=== PATIENT | male | born 1950 | race Caucasian/White ===

== ENCOUNTER 2017-10-25 15:07 | Inpatient (IN) | payer MEDICARE, MEDICAID ==
--- NOTE | 2017-10-25 15:28 | ED Physician Chart ---
ED Chief Complaint/HPI - Patient Information Date Seen:: 10/25/17 Time Seen:: 15:15 Chief Complaint:: Agitation History of Present Illness:: onset x 3 days of agitation and aggressive behavior; no report of SIs, H/As, neck pain, C/P, cough, SOB, Abd. Pain, A/N/V/D/C, fever, chills, or urinary s/s Historian:: Patient, EMS Review:: Nurse's Note Reviewed, EMS run form Reviewed ED Review of Systems - Review of Systems General/Constitutional: No fever, No chills, No weight loss, No weakness, No diaphoresis, No edema, No loss of appetite Skin: No skin lesions, No rash, No bruising Head: No headache, No light-headedness Eyes: No loss of vision, No pain, No diplopia ENT: No earache, No nasal drainage, No sore throat, No tinnitus Neck: No neck pain, No swelling, No thyromegaly, No stiffness, No mass noted Cardio Vascular: No chest pain, No palpitations, No PND, No orthopnea, No edema Pulmonary: No SOB, No cough, No sputum, No wheezing GI: Nausea, Vomiting, Diarrhea, Pain, No melena, No hematochezia, No constipation, No hematemesis G/U: No dysuria, No frequency, No hematuria, No nacturia Musculoskeletal: No bone or joint pain, No back pain, No muscle pain Endocrine: No polyuria, No polydipsia Psychiatric: Prior psych history, Depression, Anxiety, No suicidal ideation, No homicidal ideation, Auditory hallucination, No visual hallucination Hematopoietic: No bruising, No lymphadenopathy Allergic/Immuno: No urticaria, No angioedema Neurological: No syncope, No focal symptoms, No weakness, No paresthesia, No headache, No seizure, No dizziness, No confusion, No vertigo ED Past Medical History - Past Medical History Obtainable: Yes Past Medical History: PUD/GERD, Other (anemia) Family History: HTN Social History: Non Smoker, No Alcohol, No Drug Use, Single, Care Facility Surgical History: None Psychiatricy History: Depression, Schizophrenia Medication: Reviewed ED Physical Exam - Physical Examination General/Constitutional: Awake, Well-developed, well-nourished, Alert, No distress, GCS 15, Non-toxic appearing, Ambulatory Head: Atraumatic Eyes: Lids, conjuctiva normal, PERRL, EOMI Skin: Nl inspection, No rash, No skin lesions, No ecchymosis, Well hydrated, No lymphadenopathy ENMT: External ears, nose nl, TM canals nl, Nasal exam nl, Lips, teeth, gums nl , Oropharynx nl, Tonsils nl Neck: Nontender, Full ROM w/o pain, No JVD, No nuchal rigidity, No bruit, No mass, No stridor Respiratory: Nl effort/Exclusion, Clear to Auscultation, No Wheeze/Rhonchi/Rales Cardio Vascular: RRR, No murmur, gallop, rubs, NL S1 S2, Carotid/Femoral/Distal pulses equal bilaterally GI: No tenderness/rebounding/guarding, No organomegaly, No hernia, Normal BS's, Nondistended, No mass/bruits, No McBurney tenderness : No CVA tenderness Extremities: No tenderness or effusion, Full ROM, normal strength in all extremities, No edema, Normal digits & nails Neuro/Psych: Alert/oriented, DTR's symmetric, Normal sensory exam, Normal motor strength, Judgement/insight normal, Mood normal, Normal gait, No focal deficits Other Neuro/Psych comments:: + Psychomotor Agitation; no SIs; Mood/Affect: Stable Misc: Normal back, No paraspinal tenderness ED Labs/Radiology/EKG Results - Lab Results Comments:: unremarkable - EKG Interpretations Comments:: pt refused EKG ED Septic Shock - . Is Septic Shock (SBP<90, OR Lactate>4 mmol\L) present?: No ED Reassessment (Disposition) - Reassessment Reassessment Condition:: Improved - Diagnosis Diagnosis:: Agitation; Bipolar Disorder; Depression; Schizophrenia; Medical Clearance - Aftercare/Follow up Instructions Aftercare/Follow-Up Instructions:: Counseled pt regarding lab results/diagnosis & need follow up, Counseled pt & family regarding lab results/diagnosis & need follow up - Patient Disposition Discharge/Transfer:: Acute Care w/in this hosp Admitted to:: [facility] Condition at Disposition:: Stable, Improved
[2017-10-25 15:45] LABS: % BASOPHILS 0.4 % (0.0-2.0); % LYMPHOCYTES 14.6 % (20.0-50.0); % MONOCYTES 5.9 % (2.0-10.0); % NEUTROPHILS 78.1 % (40.0-80.0); EOSINOPHILE ABSOLUTE 0.1 Th/cmm (0.1-0.4); HEMATOCRIT 48.5 % (41.0-60); HEMOGLOBIN 16.1 gm/dL (12-16); LYMPHOCYTE ABSOLUTE 1.3 Th/cmm (1.5-3.0); MEAN CELL VOLUME 93.4 fl (80-99); MEAN CORPUSCULAR HGB CONC 33.2 pg (28.0-36.0); MEAN PLATELET VOLUME 7.6 fl; MONOCYTE ABSOLUTE 0.5 Th/cmm (0.3-1.0); NEUTROPHILE ABSOLUTE 6.8 Th/cmm (1.8-8.0); PLATELET COUNT 260 Th/cmm (150-400); RED CELL DISTRIBUTION WIDTH 13.2 % (11.5-20.0); WHITE BLOOD COUNT 8.7 Th/cmm (4.8-10.8)
[2017-10-25 16:03] LABS: ALB/GLOB RATIO 1.6 (1.0-1.8); ALBUMIN 4.2 gm/dL (4.2-5.5); ANION GAP 9.2 (7.0-16.0); BILIRUBIN,TOTAL 0.5 mg/dL (0.3-1.0); BUN - UREA NITROGEN 19 mg/dL (7-25); CALCIUM SERUM 8.8 mg/dL (8.6-10.3); CARBON DIOXIDE 27.1 mEq/L (21.0-31.0); CHLORIDE 106 mEq/L (98-107); CREATININE - SERUM 0.7 mg/dL (0.7-1.3); GFR AFRICAN-AMERICAN > 60.0 ml/min (>90); GFR NON AFRICAN-AMERICAN > 60.0 ml/min; GLUCOSE 102 mg/dL (70-105); POTASSIUM SERUM 4.3 mEq/L (3.5-5.1); SGOT 18 U/L (13-39); SGPT/ALT 13 U/L (7-52); SODIUM SERUM 138 mEq/L (136-145); TOTAL PROTEIN,SERUM 6.9 gm/dL (6.0-8.3)
[2017-10-25 16:04] LABS: ACETAMINOPHEN < 10.0 ug/mL (10.0-30.0); ALKALINE PHOSPHATASE 54 U/L (34-104); CHOLESTEROL 190 mg/dL (<200); HDL -HIGH DENSITY LIPOPROTEIN 51 mg/dL (23-92); SALICYLATES (ASPIRIN) < 25.0 mg/L (30.0-100.0); TRIGLYCERIDES 126 mg/dL (<150)
[2017-10-25] MEDS ORDERED: Haloperidol Lactate 5 mg/mL 1mL Vial IM STA (16:34)
[2017-10-25 16:51] LABS: A1C % 6.2 % (4.0-6.0)
[2017-10-25 18:54] VITALS: BP 131/74
[2017-10-25] MEDS ORDERED: Maalox 30 mL Cup PO PRN (21:19)
[2017-10-25] MEDS ORDERED: Magnesium Hydroxide (MOM) 30 mL UDC PO PRN (21:19)
[2017-10-26] MEDS: Multivitamin Tab PO SCH (08:11)
[2017-10-26] MEDS: Benztropine 1 MG TAB PO SCH (08:11)
--- NOTE | 2017-10-26 08:12 | History and Physical ---
History of Present Illness - HPI Chief Complaint: psychosis HPI: 66 y/o male who presents to [facility] for 3 days history of increased agitation and aggressive behavior noted by the nursing staff. While in the ER, patient had routine labwork which revealed WBC 8.7 H/H 16.1/48.5 plat 260K Na 138 K 4.3 Bun/Cr 19/0.7 glu 102 A1c 6.2 TC 190 Trig 126 HDL 51 LDL 116 ETOH <10 Salicylates <25 Tylenol <10 Patient has a PMH PUD/GERD, HTN, Anemia, Depression, Schizophrenia Patient refused EKG Vital Signs: Last Vital Signs Temp 98 F 10/25/17 20:00 Pulse 82 10/25/17 20:00 Resp 20 10/25/17 20:00 BP 110/68 10/25/17 20:00 Pulse Ox 97 10/25/17 20:00 Past Medical History Cardiovascular: Report: HTN Pulmonary: Report: No Pertinent Hx [employer]IOR MANAGER: Report: No Pertinent Hx GI: Report: GERD, Peptic Ulcer Psych: Report: Depression, Schizophrenia Musculoskeletal: Report: No Pertinent Hx Rheumatologic: Report: No pertinent Hx Infectious Disease: Report: No Pertinent Hx Renal/: Report: No Pertinent Hx Endocrine: Report: No Pertinent Hx Dermatology: Report: No Pertinent Hx Other History: anemia - Past Surgical History Past Surgical History: No pertinent Hx Family Medical History - Family Member Mother History Unknown: Yes Ethnicity: Unknown Living Status: Unknown Social History Smoke: No Alcohol: None Drugs: None Lives: [facility] - Medications Home Medications: Home Medication Medication Instructions Recorded Type Acetaminophen [Acetaminophen Extra 500 mg PO Q6H PRN 10/25/17 History Strength] Benztropine [Cogentin*] 1 mg PO DAILY 10/25/17 History Docusate Sodium [Colace] 250 mg PO DAILY 10/25/17 History Magnesium Hydroxide [Milk of 30 ml PO DAILY 10/25/17 History Magnesia] Multivitamin [Multi-Day Vitamins] 1 tab PO DAILY 10/25/17 History OLANZapine [ZyPREXA] 1 tab PO HS 10/25/17 History - Allergies Allergies/Adverse Reactions: Allergies Allergy/AdvReac Type Severity Reaction Status Date / Time No Known Allergies Allergy Verified 10/25/17 15:28 Review of Systems - Review of Systems Constitutional: Report: No Significant Eyes: Report: No Significant ENT: Report: No Significant Respiratory: Report: No Significant Cardiovascular: Report: No Significant Gastrointestinal: Report: No Significant Genitourinary: Report: No Significant Musculoskeletal: Report: No Significant Skin: Report: No Significant Neurological: Report: No Significant Physical Exam - Physical Exam HEENT: Report: Ears Nose Throat within normal limits, Pharnyx within normal limits Neck: Report: Within normal limits. Denies: Thyromegaly Cardiovascular Systems: Report: +s1/s2 noted, Regular, Rate and Rhythm Respiratory: Report: Breath Sounds are within normal limits, Clear to Auscultation of lung zavaleta Abdomen: Report: Non-tender to palpation Back: Report: Inspection of back is within normal limits. Extremities: Report: Non-tender to palpation. Skin: Report: Color of skin is within normal limits Neuro/Psych: Report: Mood affect is within normal limits - Assessment Assessment: Psychosis Bipolar disorder depression schizophrenia PUD/GERD Anemia by history - Plan Plan: admit to [facility]. continue home meds. will follow
--- NOTE | 2017-10-26 15:02 | Psychosocial Evaluation ---
DATE OF SERVICE: 10/26/2017 IDENTIFYING DATA: The patient is a 66-year-old male, resident from [place]. Information obtained by directly interviewing the patient as well as reviewing the admission papers and they are reliable. JUSTIFICATION OF HOSPITALIZATION: The patient is on a conservatorship and has been admitted here because of his acute agitation. CHIEF COMPLAINT: "I don't know." HISTORY OF PRESENT ILLNESS: This is the first psychiatric hospitalization to [facility] for this patient who is reported to have been very agitated and is not making much sense and has been becoming difficult for them to contain the patient at the time of the hospitalization. The patient is noted to be on 2.5 mg of the olanzapine. The patient is reported to be followed up by Dr. Marte on an outpatient basis. PAST PSYCHIATRIC HISTORY: Details are not known. MEDICAL HISTORY: Physical examination requested done by Dr. Yañez. SUBSTANCE ABUSE HISTORY: None. PHYSICAL OR SEXUAL ABUSE HISTORY: None. LEGAL PROBLEMS: None at this time. STRENGTH AND ASSETS: The patient seems to be motivated. MENTAL STATUS EXAMINATION: The patient is a 66-year-old, looking older than his stated age, superficially cooperative. Eye contact is poor. Mood is noted to be irritable. Affect is constricted. Insight and judgment at this time are noted to be impaired. Impulse control is noted to be poor. The patient has not been able to contract for safety. The patient has been having difficult time to cope with the stress. The patient's behavior is noted to be a danger to others in view of his agitation and patient is also gravely disable. The patient is alert and awake, but when it comes to the attention span on consultation the patient is not able to provide much of information. Short and long-term also noted to be very poor and patient is noted to be mumbling to self. DIAGNOSES AT THE TIME OF ADMISSION: AXIS I: 1. Psychotic disorder, not otherwise specified. 2. Rule out dementia. AXIS II: None. AXIS III: As per Dr. Yañez. IMMEDIATE TREATMENT PLAN: The patient is going to be observed on the inpatient unit, provided with supportive psychotherapy. The patient is going to be closely monitored. Once stabilized, the patient is going to be discharged to [facility] to be followed up on an outpatient basis. JOB# [id number]
--- NOTE | 2017-10-27 06:44 | General Progress Note ---
Subjective - Review of Systems Service Date: 10/27/17 Subjective: Awake, alert, afebrile VS T98.7 P60 R20 BP 105/66 Objective - Results Result Diagrams: 10/25/17 15:39 10/25/17 15:39 Recent Labs: Laboratory Last Values WBC 8.7 Th/cmm (4.8-10.8) 10/25/17 15:39 RBC 5.20 Mil/cmm (3.80-5.80) 10/25/17 15:39 Hgb 16.1 gm/dL (12-16) 10/25/17 15:39 Hct 48.5 % (41.0-60) 10/25/17 15:39 MCV 93.4 fl (80-99) 10/25/17 15:39 MCH 31.0 pg (27.0-31.0) 10/25/17 15:39 MCHC Differential 33.2 pg (28.0-36.0) 10/25/17 15:39 RDW 13.2 % (11.5-20.0) 10/25/17 15:39 Plt Count 260 Th/cmm (150-400) 10/25/17 15:39 MPV 7.6 fl 10/25/17 15:39 Neutrophils % 78.1 % (40.0-80.0) 10/25/17 15:39 Lymphocytes % 14.6 % (20.0-50.0) L 10/25/17 15:39 Monocytes % 5.9 % (2.0-10.0) 10/25/17 15:39 Eosinophils % 1.0 % (0.0-5.0) 10/25/17 15:39 Basophils % 0.4 % (0.0-2.0) 10/25/17 15:39 Sodium 138 mEq/L (136-145) 10/25/17 15:39 Potassium 4.3 mEq/L (3.5-5.1) 10/25/17 15:39 Chloride 106 mEq/L (98-107) 10/25/17 15:39 Carbon Dioxide 27.1 mEq/L (21.0-31.0) 10/25/17 15:39 Anion Gap 9.2 (7.0-16.0) 10/25/17 15:39 BUN 19 mg/dL (7-25) 10/25/17 15:39 Creatinine 0.7 mg/dL (0.7-1.3) 10/25/17 15:39 Est GFR ( Amer) > 60.0 ml/min (>90) 10/25/17 15:39 Est GFR (Non-Af Amer) > 60.0 ml/min 10/25/17 15:39 BUN/Creatinine Ratio 27.1 10/25/17 15:39 Glucose 102 mg/dL (70-105) 10/25/17 15:39 Hemoglobin A1c % 6.2 % (4.0-6.0) H 10/25/17 15:39 Calcium 8.8 mg/dL (8.6-10.3) 10/25/17 15:39 Total Bilirubin 0.5 mg/dL (0.3-1.0) 10/25/17 15:39 AST 18 U/L (13-39) 10/25/17 15:39 ALT 13 U/L (7-52) 10/25/17 15:39 Alkaline Phosphatase 54 U/L (34-104) 10/25/17 15:39 Total Protein 6.9 gm/dL (6.0-8.3) 10/25/17 15:39 Albumin 4.2 gm/dL (4.2-5.5) 10/25/17 15:39 Globulin 2.7 gm/dL 10/25/17 15:39 Albumin/Globulin Ratio 1.6 (1.0-1.8) 10/25/17 15:39 Triglycerides 126 mg/dL (<150) 10/25/17 15:39 Cholesterol 190 mg/dL (<200) 10/25/17 15:39 LDL Cholesterol Direct 116 mg/dL (75-193) 10/25/17 15:39 HDL Cholesterol 51 mg/dL (23-92) 10/25/17 15:39 TSH 1.96 uIU/ml (0.34-5.60) 10/25/17 15:39 Salicylates < 25.0 mg/L (30.0-100.0) L 10/25/17 15:39 Acetaminophen < 10.0 ug/mL (10.0-30.0) L 10/25/17 15:39 Ethyl Alcohol < 10 mg/dL (0-10) 10/25/17 15:39 - Physical Exam Vitals and I&O: Vital Signs Temp 98.7 F 10/26/17 14:00 Pulse 60 10/26/17 14:00 Resp 20 10/26/17 14:00 BP 105/66 10/26/17 14:00 Pulse Ox 96 10/26/17 14:00 Intake & Output 10/26/17 10/26/17 10/27/17 06:59 18:59 06:59 Intake Total 120 900 Balance 120 900 Intake: Oral 120 900 Other: # Voids 2 3 # Bowel Movements 0 Active Medications: Current Medications Acetaminophen (Tylenol) 650 mg PO Q4HR PRN PRN Reason: Mild Pain / Temp above 100 Stop: 12/24/17 21:18 Al Hydrox/Mg Hydrox/Simethicone (Maalox) 30 ml PO Q4HR PRN PRN Reason: GI DISTRESS Stop: 12/24/17 21:18 Benztropine Mesylate (Cogentin) 1 mg PO DAILY [facility] Stop: 12/25/17 08:59 Last Admin: 10/26/17 08:11 Dose: 1 mg Docusate Sodium (Colace) 250 mg PO DAILY [facility] Stop: 12/25/17 08:59 Last Admin: 10/26/17 08:11 Dose: 250 mg Lorazepam (Ativan) 0.5 mg PO Q4HR PRN; Protocol PRN Reason: Anxiety Stop: 11/24/17 21:18 Magnesium Hydroxide (Milk Of Magnesia) 30 ml PO HS PRN PRN Reason: Constipation Magnesium Hydroxide (Milk Of Magnesia) 30 ml PO QMON [facility] Stop: 12/30/17 08:59 Multivitamins/Vitamin C (Theragran) 1 tab PO DAILY [facility] Stop: 12/25/17 08:59 Last Admin: 10/26/17 08:11 Dose: 1 tab Olanzapine (Zyprexa) 2.5 mg PO HS [facility] PRN Reason: Protocol Stop: 12/24/17 20:59 Last Admin: 10/26/17 21:48 Dose: 2.5 mg Zolpidem Tartrate (Ambien) 5 mg PO HS PRN PRN Reason: Insomnia Stop: 12/24/17 21:18 General: Alert, No acute distress HEENT: Atraumatic, PERRLA, EOMI Neck: Supple, no JVD, no Thyromegaly Cardiovascular: Regular rate, Normal S1, Normal S2 Lungs: Clear to auscultation Abdomen: Bowel sounds Extremities: no Clubbing, no Cyanosis, no Edema - Procedures Procedures: Procedures Procedure Code Date COLONOSCOPY 45.06/28/11 ESOPHAGOGASTRODUODENOSCOPY [EGD] W/CLOSED BIOPSY 45.16 06/28/11 Assessment/Plan - Assessment Assessment: Psychosis Bipolar disorder depression schizophrenia PUD/GERD Anemia by history - Plan Plan: admit to [facility]. continue home meds. will follow
[2017-10-27] MEDS: Multivitamin Tab PO SCH (08:38)
[2017-10-27] MEDS: Benztropine 1 MG TAB PO SCH (08:38)
[2017-10-28] MEDS: Benztropine 1 MG TAB PO SCH (09:11)
[2017-10-28] MEDS: Multivitamin Tab PO SCH (09:11)
--- NOTE | 2017-10-28 14:29 | General Progress Note ---
Subjective - Review of Systems Service Date: 10/28/17 Subjective: Awake, alert, afebrile VS T97.6 P70 R18 BP 119/76 Objective - Results Result Diagrams: 10/25/17 15:39 10/25/17 15:39 Recent Labs: Laboratory Last Values WBC 8.7 Th/cmm (4.8-10.8) 10/25/17 15:39 RBC 5.20 Mil/cmm (3.80-5.80) 10/25/17 15:39 Hgb 16.1 gm/dL (12-16) 10/25/17 15:39 Hct 48.5 % (41.0-60) 10/25/17 15:39 MCV 93.4 fl (80-99) 10/25/17 15:39 MCH 31.0 pg (27.0-31.0) 10/25/17 15:39 MCHC Differential 33.2 pg (28.0-36.0) 10/25/17 15:39 RDW 13.2 % (11.5-20.0) 10/25/17 15:39 Plt Count 260 Th/cmm (150-400) 10/25/17 15:39 MPV 7.6 fl 10/25/17 15:39 Neutrophils % 78.1 % (40.0-80.0) 10/25/17 15:39 Lymphocytes % 14.6 % (20.0-50.0) L 10/25/17 15:39 Monocytes % 5.9 % (2.0-10.0) 10/25/17 15:39 Eosinophils % 1.0 % (0.0-5.0) 10/25/17 15:39 Basophils % 0.4 % (0.0-2.0) 10/25/17 15:39 Sodium 138 mEq/L (136-145) 10/25/17 15:39 Potassium 4.3 mEq/L (3.5-5.1) 10/25/17 15:39 Chloride 106 mEq/L (98-107) 10/25/17 15:39 Carbon Dioxide 27.1 mEq/L (21.0-31.0) 10/25/17 15:39 Anion Gap 9.2 (7.0-16.0) 10/25/17 15:39 BUN 19 mg/dL (7-25) 10/25/17 15:39 Creatinine 0.7 mg/dL (0.7-1.3) 10/25/17 15:39 Est GFR ( Amer) > 60.0 ml/min (>90) 10/25/17 15:39 Est GFR (Non-Af Amer) > 60.0 ml/min 10/25/17 15:39 BUN/Creatinine Ratio 27.1 10/25/17 15:39 Glucose 102 mg/dL (70-105) 10/25/17 15:39 Hemoglobin A1c % 6.2 % (4.0-6.0) H 10/25/17 15:39 Calcium 8.8 mg/dL (8.6-10.3) 10/25/17 15:39 Total Bilirubin 0.5 mg/dL (0.3-1.0) 10/25/17 15:39 AST 18 U/L (13-39) 10/25/17 15:39 ALT 13 U/L (7-52) 10/25/17 15:39 Alkaline Phosphatase 54 U/L (34-104) 10/25/17 15:39 Total Protein 6.9 gm/dL (6.0-8.3) 10/25/17 15:39 Albumin 4.2 gm/dL (4.2-5.5) 10/25/17 15:39 Globulin 2.7 gm/dL 10/25/17 15:39 Albumin/Globulin Ratio 1.6 (1.0-1.8) 10/25/17 15:39 Triglycerides 126 mg/dL (<150) 10/25/17 15:39 Cholesterol 190 mg/dL (<200) 10/25/17 15:39 LDL Cholesterol Direct 116 mg/dL (75-193) 10/25/17 15:39 HDL Cholesterol 51 mg/dL (23-92) 10/25/17 15:39 TSH 1.96 uIU/ml (0.34-5.60) 10/25/17 15:39 Salicylates < 25.0 mg/L (30.0-100.0) L 10/25/17 15:39 Acetaminophen < 10.0 ug/mL (10.0-30.0) L 10/25/17 15:39 Ethyl Alcohol < 10 mg/dL (0-10) 10/25/17 15:39 RPR NONREACTIVE (NONREACTIVE) 10/25/17 15:39 - Physical Exam Vitals and I&O: Vital Signs Temp 97.6 F 10/28/17 06:00 Pulse 70 10/28/17 06:00 Resp 18 10/28/17 06:00 BP 119/76 10/28/17 06:00 Pulse Ox 98 10/28/17 06:00 Intake & Output 10/27/17 10/28/17 10/28/17 18:59 06:59 18:59 Intake Total 1000 250 Balance 1000 250 Intake: Oral 1000 250 Other: # Voids 3 3 # Bowel Movements 1 0 Active Medications: Current Medications Acetaminophen (Tylenol) 650 mg PO Q4HR PRN PRN Reason: Mild Pain / Temp above 100 Stop: 12/24/17 21:18 Al Hydrox/Mg Hydrox/Simethicone (Maalox) 30 ml PO Q4HR PRN PRN Reason: GI DISTRESS Stop: 12/24/17 21:18 Benztropine Mesylate (Cogentin) 1 mg PO DAILY [facility] Stop: 12/25/17 08:59 Last Admin: 10/28/17 09:11 Dose: 1 mg Docusate Sodium (Colace) 250 mg PO DAILY [facility] Stop: 12/25/17 08:59 Last Admin: 10/28/17 09:11 Dose: 250 mg Lorazepam (Ativan) 0.5 mg PO Q4HR PRN; Protocol PRN Reason: Anxiety Stop: 11/24/17 21:18 Magnesium Hydroxide (Milk Of Magnesia) 30 ml PO HS PRN PRN Reason: Constipation Magnesium Hydroxide (Milk Of Magnesia) 30 ml PO QMON [facility] Stop: 12/30/17 08:59 Multivitamins/Vitamin C (Theragran) 1 tab PO DAILY [facility] Stop: 12/25/17 08:59 Last Admin: 10/28/17 09:11 Dose: 1 tab Olanzapine (Zyprexa) 2.5 mg PO HS [facility] PRN Reason: Protocol Stop: 12/24/17 20:59 Last Admin: 10/27/17 21:34 Dose: 2.5 mg Zolpidem Tartrate (Ambien) 5 mg PO HS PRN PRN Reason: Insomnia Stop: 12/24/17 21:18 Last Admin: 10/27/17 21:34 Dose: 5 mg General: Alert, No acute distress HEENT: Atraumatic, PERRLA, EOMI Neck: Supple, no JVD, no Thyromegaly Cardiovascular: Regular rate, Normal S1, Normal S2 Lungs: Clear to auscultation Abdomen: Bowel sounds Extremities: no Clubbing, no Cyanosis, no Edema - Procedures Procedures: Procedures Procedure Code Date COLONOSCOPY 45.23 06/28/11 ESOPHAGOGASTRODUODENOSCOPY [EGD] W/CLOSED BIOPSY 45.16 06/28/11 Assessment/Plan - Assessment Assessment: Psychosis Bipolar disorder depression schizophrenia PUD/GERD Anemia by history - Plan [facility]. will follow
--- NOTE | 2017-10-28 21:46 | Progress Notes ---
DATE: 10/28/2017 Staff was spoken to. The patient is interviewed. Mood is noted to be irritable. Affect is constricted. The patient is stating that he does not have any energy and he feels frustrated. Insight and judgment at this time are noted to be still impaired. Impulse control noted to be poor. Coping skills are noted to be poor. The patient is not able to contract for safety. No side effects to the medications are noted at this time. The patient is getting easily irritable when we have been having difficult time to comply with the treatment. The patient is currently on 2.5 mg and the Zyprexa and would like to continue the medication at the same dose and follow him up with the supportive therapy. [facility]# [id number]
--- NOTE | 2017-10-29 05:44 | General Progress Note ---
Subjective - Review of Systems Service Date: 10/29/17 Subjective: Awake, alert, afebrile VS T97.8 P91 R20 BP 117/85 Objective - Results Result Diagrams: 10/25/17 15:39 10/25/17 15:39 Recent Labs: Laboratory Last Values WBC 8.7 Th/cmm (4.8-10.8) 10/25/17 15:39 RBC 5.20 Mil/cmm (3.80-5.80) 10/25/17 15:39 Hgb 16.1 gm/dL (12-16) 10/25/17 15:39 Hct 48.5 % (41.0-60) 10/25/17 15:39 MCV 93.4 fl (80-99) 10/25/17 15:39 MCH 31.0 pg (27.0-31.0) 10/25/17 15:39 MCHC Differential 33.2 pg (28.0-36.0) 10/25/17 15:39 RDW 13.2 % (11.5-20.0) 10/25/17 15:39 Plt Count 260 Th/cmm (150-400) 10/25/17 15:39 MPV 7.6 fl 10/25/17 15:39 Neutrophils % 78.1 % (40.0-80.0) 10/25/17 15:39 Lymphocytes % 14.6 % (20.0-50.0) L 10/25/17 15:39 Monocytes % 5.9 % (2.0-10.0) 10/25/17 15:39 Eosinophils % 1.0 % (0.0-5.0) 10/25/17 15:39 Basophils % 0.4 % (0.0-2.0) 10/25/17 15:39 Sodium 138 mEq/L (136-145) 10/25/17 15:39 Potassium 4.3 mEq/L (3.5-5.1) 10/25/17 15:39 Chloride 106 mEq/L (98-107) 10/25/17 15:39 Carbon Dioxide 27.1 mEq/L (21.0-31.0) 10/25/17 15:39 Anion Gap 9.2 (7.0-16.0) 10/25/17 15:39 BUN 19 mg/dL (7-25) 10/25/17 15:39 Creatinine 0.7 mg/dL (0.7-1.3) 10/25/17 15:39 Est GFR ( Amer) > 60.0 ml/min (>90) 10/25/17 15:39 Est GFR (Non-Af Amer) > 60.0 ml/min 10/25/17 15:39 BUN/Creatinine Ratio 27.1 10/25/17 15:39 Glucose 102 mg/dL (70-105) 10/25/17 15:39 Hemoglobin A1c % 6.2 % (4.0-6.0) H 10/25/17 15:39 Calcium 8.8 mg/dL (8.6-10.3) 10/25/17 15:39 Total Bilirubin 0.5 mg/dL (0.3-1.0) 10/25/17 15:39 AST 18 U/L (13-39) 10/25/17 15:39 ALT 13 U/L (7-52) 10/25/17 15:39 Alkaline Phosphatase 54 U/L (34-104) 10/25/17 15:39 Total Protein 6.9 gm/dL (6.0-8.3) 10/25/17 15:39 Albumin 4.2 gm/dL (4.2-5.5) 10/25/17 15:39 Globulin 2.7 gm/dL 10/25/17 15:39 Albumin/Globulin Ratio 1.6 (1.0-1.8) 10/25/17 15:39 Triglycerides 126 mg/dL (<150) 10/25/17 15:39 Cholesterol 190 mg/dL (<200) 10/25/17 15:39 LDL Cholesterol Direct 116 mg/dL (75-193) 10/25/17 15:39 HDL Cholesterol 51 mg/dL (23-92) 10/25/17 15:39 TSH 1.96 uIU/ml (0.34-5.60) 10/25/17 15:39 Salicylates < 25.0 mg/L (30.0-100.0) L 10/25/17 15:39 Acetaminophen < 10.0 ug/mL (10.0-30.0) L 10/25/17 15:39 Ethyl Alcohol < 10 mg/dL (0-10) 10/25/17 15:39 RPR NONREACTIVE (NONREACTIVE) 10/25/17 15:39 - Physical Exam Vitals and I&O: Vital Signs Temp 97.8 F 10/28/17 16:24 Pulse 91 10/28/17 16:24 Resp 20 10/28/17 16:24 BP 117/85 10/28/17 16:24 Pulse Ox 98 10/28/17 16:24 Intake & Output 10/28/17 10/28/17 10/29/17 06:59 18:59 06:59 Intake Total 250 1000 Balance 250 1000 Intake: Oral 250 1000 Other: # Voids 3 3 # Bowel Movements 0 0 Stool Characteristics Soft Active Medications: Current Medications Acetaminophen (Tylenol) 650 mg PO Q4HR PRN PRN Reason: Mild Pain / Temp above 100 Stop: 12/24/17 21:18 Al Hydrox/Mg Hydrox/Simethicone (Maalox) 30 ml PO Q4HR PRN PRN Reason: GI DISTRESS Stop: 12/24/17 21:18 Benztropine Mesylate (Cogentin) 1 mg PO DAILY [facility] Stop: 12/25/17 08:59 Last Admin: 10/28/17 09:11 Dose: 1 mg Docusate Sodium (Colace) 250 mg PO DAILY [facility] Stop: 12/25/17 08:59 Last Admin: 10/28/17 09:11 Dose: 250 mg Lorazepam (Ativan) 0.5 mg PO Q4HR PRN; Protocol PRN Reason: Anxiety Stop: 11/24/17 21:18 Magnesium Hydroxide (Milk Of Magnesia) 30 ml PO HS PRN PRN Reason: Constipation Magnesium Hydroxide (Milk Of Magnesia) 30 ml PO QMON [facility] Stop: 12/30/17 08:59 Multivitamins/Vitamin C (Theragran) 1 tab PO DAILY [facility] Stop: 12/25/17 08:59 Last Admin: 10/28/17 09:11 Dose: 1 tab Olanzapine (Zyprexa) 2.5 mg PO HS [facility] PRN Reason: Protocol Stop: 12/24/17 20:59 Last Admin: 10/28/17 20:51 Dose: 2.5 mg Zolpidem Tartrate (Ambien) 5 mg PO HS PRN PRN Reason: Insomnia Stop: 12/24/17 21:18 Last Admin: 10/28/17 20:51 Dose: 5 mg General: Alert, No acute distress HEENT: Atraumatic, PERRLA, EOMI Neck: Supple, no JVD, no Thyromegaly Cardiovascular: Regular rate, Normal S1, Normal S2 Lungs: Clear to auscultation Abdomen: Bowel sounds Extremities: no Clubbing, no Cyanosis, no Edema - Procedures Procedures: Procedures Procedure Code Date COLONOSCOPY 45.23 06/28/11 ESOPHAGOGASTRODUODENOSCOPY [EGD] W/CLOSED BIOPSY 45.16 06/28/11 Assessment/Plan - Assessment Assessment: Psychosis Bipolar disorder depression schizophrenia PUD/GERD Anemia by history - Plan [facility] will follow
[2017-10-29] MEDS: Benztropine 1 MG TAB PO SCH (09:57)
[2017-10-29] MEDS: Multivitamin Tab PO SCH (09:57)
--- NOTE | 2017-10-30 05:42 | General Progress Note ---
Subjective - Review of Systems Service Date: 10/30/17 Subjective: Awake, alert, afebrile VS T98.2 P88 R20 BP 104/70 Objective - Results Result Diagrams: 10/25/17 15:39 10/25/17 15:39 Recent Labs: Laboratory Last Values WBC 8.7 Th/cmm (4.8-10.8) 10/25/17 15:39 RBC 5.20 Mil/cmm (3.80-5.80) 10/25/17 15:39 Hgb 16.1 gm/dL (12-16) 10/25/17 15:39 Hct 48.5 % (41.0-60) 10/25/17 15:39 MCV 93.4 fl (80-99) 10/25/17 15:39 MCH 31.0 pg (27.0-31.0) 10/25/17 15:39 MCHC Differential 33.2 pg (28.0-36.0) 10/25/17 15:39 RDW 13.2 % (11.5-20.0) 10/25/17 15:39 Plt Count 260 Th/cmm (150-400) 10/25/17 15:39 MPV 7.6 fl 10/25/17 15:39 Neutrophils % 78.1 % (40.0-80.0) 10/25/17 15:39 Lymphocytes % 14.6 % (20.0-50.0) L 10/25/17 15:39 Monocytes % 5.9 % (2.0-10.0) 10/25/17 15:39 Eosinophils % 1.0 % (0.0-5.0) 10/25/17 15:39 Basophils % 0.4 % (0.0-2.0) 10/25/17 15:39 Sodium 138 mEq/L (136-145) 10/25/17 15:39 Potassium 4.3 mEq/L (3.5-5.1) 10/25/17 15:39 Chloride 106 mEq/L (98-107) 10/25/17 15:39 Carbon Dioxide 27.1 mEq/L (21.0-31.0) 10/25/17 15:39 Anion Gap 9.2 (7.0-16.0) 10/25/17 15:39 BUN 19 mg/dL (7-25) 10/25/17 15:39 Creatinine 0.7 mg/dL (0.7-1.3) 10/25/17 15:39 Est GFR ( Amer) > 60.0 ml/min (>90) 10/25/17 15:39 Est GFR (Non-Af Amer) > 60.0 ml/min 10/25/17 15:39 BUN/Creatinine Ratio 27.1 10/25/17 15:39 Glucose 102 mg/dL (70-105) 10/25/17 15:39 Hemoglobin A1c % 6.2 % (4.0-6.0) H 10/25/17 15:39 Calcium 8.8 mg/dL (8.6-10.3) 10/25/17 15:39 Total Bilirubin 0.5 mg/dL (0.3-1.0) 10/25/17 15:39 AST 18 U/L (13-39) 10/25/17 15:39 ALT 13 U/L (7-52) 10/25/17 15:39 Alkaline Phosphatase 54 U/L (34-104) 10/25/17 15:39 Total Protein 6.9 gm/dL (6.0-8.3) 10/25/17 15:39 Albumin 4.2 gm/dL (4.2-5.5) 10/25/17 15:39 Globulin 2.7 gm/dL 10/25/17 15:39 Albumin/Globulin Ratio 1.6 (1.0-1.8) 10/25/17 15:39 Triglycerides 126 mg/dL (<150) 10/25/17 15:39 Cholesterol 190 mg/dL (<200) 10/25/17 15:39 LDL Cholesterol Direct 116 mg/dL (75-193) 10/25/17 15:39 HDL Cholesterol 51 mg/dL (23-92) 10/25/17 15:39 TSH 1.96 uIU/ml (0.34-5.60) 10/25/17 15:39 Salicylates < 25.0 mg/L (30.0-100.0) L 10/25/17 15:39 Acetaminophen < 10.0 ug/mL (10.0-30.0) L 10/25/17 15:39 Ethyl Alcohol < 10 mg/dL (0-10) 10/25/17 15:39 RPR NONREACTIVE (NONREACTIVE) 10/25/17 15:39 - Physical Exam Vitals and I&O: Vital Signs Temp 98.2 F 10/29/17 14:00 Pulse 88 10/29/17 14:00 Resp 20 10/29/17 14:00 BP 104/70 10/29/17 14:00 Pulse Ox 96 10/29/17 14:00 Intake & Output 10/29/17 10/29/17 10/30/17 06:59 18:59 06:59 Intake Total 700 Balance 700 Intake: Oral 700 Other: # Voids 3 # Bowel Movements 0 Stool Characteristics Soft Active Medications: Current Medications Acetaminophen (Tylenol) 650 mg PO Q4HR PRN PRN Reason: Mild Pain / Temp above 100 Stop: 12/24/17 21:18 Al Hydrox/Mg Hydrox/Simethicone (Maalox) 30 ml PO Q4HR PRN PRN Reason: GI DISTRESS Stop: 12/24/17 21:18 Benztropine Mesylate (Cogentin) 1 mg PO DAILY [facility] Stop: 12/25/17 08:59 Last Admin: 10/29/17 09:57 Dose: 1 mg Docusate Sodium (Colace) 250 mg PO DAILY [facility] Stop: 12/25/17 08:59 Last Admin: 10/29/17 09:57 Dose: 250 mg Lorazepam (Ativan) 0.5 mg PO Q4HR PRN; Protocol PRN Reason: Anxiety Stop: 11/24/17 21:18 Magnesium Hydroxide (Milk Of Magnesia) 30 ml PO HS PRN PRN Reason: Constipation Magnesium Hydroxide (Milk Of Magnesia) 30 ml PO QMON KATE[facility] Stop: 12/30/17 08:59 Multivitamins/Vitamin C (Theragran) 1 tab PO DAILY [facility] Stop: 12/25/17 08:59 Last Admin: 10/29/17 09:57 Dose: 1 tab Olanzapine (Zyprexa) 2.5 mg PO HS KATEY PRN Reason: Protocol Stop: 12/24/17 20:59 Last Admin: 10/29/17 21:32 Dose: 2.5 mg Zolpidem Tartrate (Ambien) 5 mg PO HS PRN PRN Reason: Insomnia Stop: 12/24/17 21:18 Last Admin: 10/29/17 21:32 Dose: 5 mg General: Alert, No acute distress HEENT: Atraumatic, PERRLA, EOMI Neck: Supple, no JVD, no Thyromegaly Cardiovascular: Regular rate, Normal S1, Normal S2 Lungs: Clear to auscultation Abdomen: Bowel sounds Extremities: no Clubbing, no Cyanosis, no Edema - Procedures Procedures: Procedures Procedure Code Date COLONOSCOPY 45.23 06/28/11 ESOPHAGOGASTRODUODENOSCOPY [EGD] W/CLOSED BIOPSY 45.16 06/28/11 Assessment/Plan - Assessment Assessment: Psychosis Bipolar disorder depression schizophrenia PUD/GERD Anemia by history - Plan Plan: [facility] continue home meds. will follow
--- NOTE | 2017-10-30 07:06 | Consultation ---
DATE OF CONSULTATION: 10/28/2017 REFERRING PHYSICIAN: Roxie Park M.D. CONSULTING PSYCHOLOGIST: Garcia Cotter, Ph.D. TYPE OF CONSULTATION: Psychology Evaluation. HISTORY OF PRESENT ILLNESS: The following is by review of the hospital record as well as by patient's self report. According to record review, the patient is a 66-year-old male who is a resident from [facility]. According to the staff at the patient's facility, the patient is being admitted due to acute agitation. The patient is conserved. The patient had been reported to be easily agitated and not making any sense when asked clinical questions. The patient is on olanzapine 2.5 mg. Upon interview, the patient states that he does not know why he is being hospitalized. The patient appears to be having difficulty coping with stress. The patient did not offer any further information. The patient did respond to the clinical question about suicidal ideation and denied any plan or means. PAST PSYCHIATRIC HISTORY: Details are unknown. MEDICAL HISTORY: Please see history and physical by Dr. Yañez. MEDICATIONS: Please see medication reconciliation. SUBSTANCE ABUSE HISTORY: The patient denies any. Record indicates no history. PSYCHOSOCIAL HISTORY: The patient denied any history of physical or sexual abuse or any legal problems. The patient presents as confused; however, at times the patient is able to give concrete answers that is yes or no to interview questions. The patient did not give occupational or educational history or gnosticism affiliation. The patient did not answer questions about marital status or family relationships. However, the patient does seem to be motivated for treatment. MENTAL STATUS EXAMINATION: The patient appears to be older than his stated age. The patient's attitude is superficially cooperative. Eye contact is poor. Speech is delayed. Mood is irritable. Affect is constricted. Thought process seems to be tangential. The patient appears to be confused. The patient denied any suicidal ideation, plan or intention or any wish to . The patient denies any auditory or visual hallucinations. The patient does not seem to be responding to internal stimuli. The patient's behavior appears to be that he is having difficulty coping with stress as well as phase of life issues. According to previous assessment prior to admission, the patient's behavior seemed to be a danger to others in view of his increasing agitation. The patient also appears to be gravely disabled. Impulse control is inadequate. Sensorium is alert and oriented to self only. Concentration is poor. The patient's attention span is limited. He was unable to perform serial 3 subtractions. The patient was unable to perform the memory evaluation. Immediate short term and long-term memory seemed to be impaired. This needs further evaluation. The patient continued to mumble answers at times. He did not perform interpretation of proverbs. Insight is poor. Judgment is compromised. DIAGNOSTIC IMPRESSION: AXIS I: Psychotic disorder, not otherwise specified. AXIS II: Deferred. AXIS III: Please see history and physical per Dr. Yañez. TREATMENT PLAN: The patient has been seen by Dr. Park for psychiatric evaluation and the management of the patient's psychotropic medications. We will provide supportive psychotherapy as well as motivational enhancement for the patient to become compliant with all aspects of care and treatment on the unit during his course of stay. The patient will be closely monitored. We will provide coping strategies for phase of life issues as well as de-escalation for the patient to be able to become less agitated and verbalize his concerns versus acting out. The patient will be followed by both Psychiatry and Psychology when discharged and returned to his facility. The patient has been seen by Dr. Marte for Psychiatry in the past. Thank you Dr. Park for this consult and the opportunity to participate with you in your patient's care. JOB# [id number] CHAS
[2017-10-30] MEDS: Multivitamin Tab PO SCH (08:16)
[2017-10-30] MEDS: Benztropine 1 MG TAB PO SCH (08:16)
--- NOTE | 2017-10-30 19:39 | Progress Notes ---
DATE: 10/29/2017 CHIEF COMPLAINT: "Hello doctor." SUBJECTIVE: The patient was seen, discussed with staff, was sitting in geriatric chair. Continues to have some anger outbursts, restlessness, but he is taking his medications. His appetite is fair. He ate 100% this morning and also lunchtime. The patient continues to have some tremor. MENTAL STATUS EXAMINATION: The patient is disheveled, unkempt. The patient is paranoid, internally preoccupied. The patient is oriented to person, know he was in the hospital. He is not oriented to time. ASSESSMENT: The patient continues to be in psychotic phase. PLAN: Continue supportive measures, monitor closely. The patient with diagnosis of schizophrenia, Zyprexa; anxiety/mood swings. JOB# [id number]
--- NOTE | 2017-10-30 20:35 | Progress Notes ---
DATE: 10/30/2017 PSYCHIATRIC PROGRESS NOTE SUBJECTIVE: Staff was spoken to. The patient is interviewed. Mood is noted to be irritable. Affect is constricted. The patient's coping skills are noted to be poor. The patient continues to be very psychotic. Still, the patient is isolative and withdrawn. The patient is currently on 2.5 mg of Zyprexa, which is going to be increased to 2.5 mg twice a day and the patient is going to be followed up with the supportive therapy. The patient is not ready to be discharged to a lower level of care in view of his agitation. ASSESSMENT: The patient is still psychotic. PLAN: To continue the patient with the current medications. I encouraged the patient to verbalize the concerns rather than to act out. JOB# [id number]
[2017-10-31] MEDS: Benztropine 1 MG TAB PO SCH (11:21)
[2017-10-31] MEDS: Multivitamin Tab PO SCH (11:22)
[2017-10-31] MEDS: Magnesium Hydroxide (MOM) 30 mL UDC PO SCH (11:22)
--- NOTE | 2017-10-31 13:39 | General Progress Note ---
Subjective - Review of Systems Service Date: 10/31/17 Subjective: Awake, alert, afebrile VS T99.1 P75 R19 BP 121/86 Objective - Results Result Diagrams: 10/25/17 15:39 10/25/17 15:39 Recent Labs: Laboratory Last Values WBC 8.7 Th/cmm (4.8-10.8) 10/25/17 15:39 RBC 5.20 Mil/cmm (3.80-5.80) 10/25/17 15:39 Hgb 16.1 gm/dL (12-16) 10/25/17 15:39 Hct 48.5 % (41.0-60) 10/25/17 15:39 MCV 93.4 fl (80-99) 10/25/17 15:39 MCH 31.0 pg (27.0-31.0) 10/25/17 15:39 MCHC Differential 33.2 pg (28.0-36.0) 10/25/17 15:39 RDW 13.2 % (11.5-20.0) 10/25/17 15:39 Plt Count 260 Th/cmm (150-400) 10/25/17 15:39 MPV 7.6 fl 10/25/17 15:39 Neutrophils % 78.1 % (40.0-80.0) 10/25/17 15:39 Lymphocytes % 14.6 % (20.0-50.0) L 10/25/17 15:39 Monocytes % 5.9 % (2.0-10.0) 10/25/17 15:39 Eosinophils % 1.0 % (0.0-5.0) 10/25/17 15:39 Basophils % 0.4 % (0.0-2.0) 10/25/17 15:39 Sodium 138 mEq/L (136-145) 10/25/17 15:39 Potassium 4.3 mEq/L (3.5-5.1) 10/25/17 15:39 Chloride 106 mEq/L (98-107) 10/25/17 15:39 Carbon Dioxide 27.1 mEq/L (21.0-31.0) 10/25/17 15:39 Anion Gap 9.2 (7.0-16.0) 10/25/17 15:39 BUN 19 mg/dL (7-25) 10/25/17 15:39 Creatinine 0.7 mg/dL (0.7-1.3) 10/25/17 15:39 Est GFR ( Amer) > 60.0 ml/min (>90) 10/25/17 15:39 Est GFR (Non-Af Amer) > 60.0 ml/min 10/25/17 15:39 BUN/Creatinine Ratio 27.1 10/25/17 15:39 Glucose 102 mg/dL (70-105) 10/25/17 15:39 Hemoglobin A1c % 6.2 % (4.0-6.0) H 10/25/17 15:39 Calcium 8.8 mg/dL (8.6-10.3) 10/25/17 15:39 Total Bilirubin 0.5 mg/dL (0.3-1.0) 10/25/17 15:39 AST 18 U/L (13-39) 10/25/17 15:39 ALT 13 U/L (7-52) 10/25/17 15:39 Alkaline Phosphatase 54 U/L (34-104) 10/25/17 15:39 Total Protein 6.9 gm/dL (6.0-8.3) 10/25/17 15:39 Albumin 4.2 gm/dL (4.2-5.5) 10/25/17 15:39 Globulin 2.7 gm/dL 10/25/17 15:39 Albumin/Globulin Ratio 1.6 (1.0-1.8) 10/25/17 15:39 Triglycerides 126 mg/dL (<150) 10/25/17 15:39 Cholesterol 190 mg/dL (<200) 10/25/17 15:39 LDL Cholesterol Direct 116 mg/dL (75-193) 10/25/17 15:39 HDL Cholesterol 51 mg/dL (23-92) 10/25/17 15:39 TSH 1.96 uIU/ml (0.34-5.60) 10/25/17 15:39 Salicylates < 25.0 mg/L (30.0-100.0) L 10/25/17 15:39 Acetaminophen < 10.0 ug/mL (10.0-30.0) L 10/25/17 15:39 Ethyl Alcohol < 10 mg/dL (0-10) 10/25/17 15:39 RPR NONREACTIVE (NONREACTIVE) 10/25/17 15:39 - Physical Exam Vitals and I&O: Vital Signs Temp 99.1 F 10/30/17 20:28 Pulse 75 10/30/17 20:28 Resp 19 10/30/17 20:28 BP 121/86 10/30/17 20:28 Pulse Ox 95 10/30/17 20:28 Intake & Output 10/30/17 10/31/17 10/31/17 18:59 06:59 18:59 Intake Total 1800 120 Balance 1800 120 Intake: Oral 1800 120 Other: # Voids 4 2 # Bowel Movements 1 0 Active Medications: Current Medications Acetaminophen (Tylenol) 650 mg PO Q4HR PRN PRN Reason: Mild Pain / Temp above 100 Stop: 12/24/17 21:18 Al Hydrox/Mg Hydrox/Simethicone (Maalox) 30 ml PO Q4HR PRN PRN Reason: GI DISTRESS Stop: 12/24/17 21:18 Benztropine Mesylate (Cogentin) 1 mg PO DAILY [facility] Stop: 12/25/17 08:59 Last Admin: 10/31/17 11:21 Dose: 1 mg Docusate Sodium (Colace) 250 mg PO DAILY KATEY Stop: 12/25/17 08:59 Last Admin: 10/31/17 11:22 Dose: 250 mg Lorazepam (Ativan) 0.5 mg PO Q4HR PRN; Protocol PRN Reason: Anxiety Stop: 11/24/17 21:18 Magnesium Hydroxide (Milk Of Magnesia) 30 ml PO HS PRN PRN Reason: Constipation Magnesium Hydroxide (Milk Of Magnesia) 30 ml PO QMON KATEY Stop: 12/30/17 08:59 Last Admin: 10/31/17 11:22 Dose: 30 ml Multivitamins/Vitamin C (Theragran) 1 tab PO DAILY KATEY Stop: 12/25/17 08:59 Last Admin: 10/31/17 11:22 Dose: 1 tab Olanzapine (Zyprexa) 2.5 mg PO BID KATEY PRN Reason: Protocol Stop: 12/29/17 16:59 Last Admin: 10/31/17 11:23 Dose: 2.5 mg Zolpidem Tartrate (Ambien) 5 mg PO HS PRN PRN Reason: Insomnia Stop: 12/24/17 21:18 Last Admin: 10/30/17 20:48 Dose: 5 mg General: Alert, No acute distress HEENT: Atraumatic, PERRLA, EOMI Neck: Supple, no JVD, no Thyromegaly Cardiovascular: Regular rate, Normal S1, Normal S2 Lungs: Clear to auscultation Abdomen: Bowel sounds Extremities: no Clubbing, no Cyanosis, no Edema - Procedures Procedures: Procedures Procedure Code Date COLONOSCOPY 45.23 06/28/11 ESOPHAGOGASTRODUODENOSCOPY [EGD] W/CLOSED BIOPSY 45.16 06/28/11 Assessment/Plan - Assessment Assessment: Psychosis Bipolar disorder depression schizophrenia PUD/GERD Anemia by history - Plan Plan: admit to [facility]. continue home meds. will follow
--- NOTE | 2017-10-31 16:29 | Progress Notes ---
DATE: 10/31/2017 Staff was spoken to. The patient is interviewed. Mood is noted to be depressed. Affect is constricted. The patient is isolative and withdrawn. Coping skills are noted to be poor. Paranoid delusions are noted. Insight and judgment also be impaired. The patient has been getting easily upset when spoken to, and the patient has been placed on 2.5 mg twice a day of the Zyprexa at this time. The patient is going to be closely monitored, encouraged him to verbalize the concerns rather than to act out. JOB# [id number]
--- NOTE | 2017-11-01 08:30 | General Progress Note ---
Subjective - Review of Systems Service Date: 11/01/17 Subjective: Awake, alert, afebrile VS T98.6 P79 R20 BP 159/70 Objective - Results Result Diagrams: 10/25/17 15:39 10/25/17 15:39 Recent Labs: Laboratory Last Values WBC 8.7 Th/cmm (4.8-10.8) 10/25/17 15:39 RBC 5.20 Mil/cmm (3.80-5.80) 10/25/17 15:39 Hgb 16.1 gm/dL (12-16) 10/25/17 15:39 Hct 48.5 % (41.0-60) 10/25/17 15:39 MCV 93.4 fl (80-99) 10/25/17 15:39 MCH 31.0 pg (27.0-31.0) 10/25/17 15:39 MCHC Differential 33.2 pg (28.0-36.0) 10/25/17 15:39 RDW 13.2 % (11.5-20.0) 10/25/17 15:39 Plt Count 260 Th/cmm (150-400) 10/25/17 15:39 MPV 7.6 fl 10/25/17 15:39 Neutrophils % 78.1 % (40.0-80.0) 10/25/17 15:39 Lymphocytes % 14.6 % (20.0-50.0) L 10/25/17 15:39 Monocytes % 5.9 % (2.0-10.0) 10/25/17 15:39 Eosinophils % 1.0 % (0.0-5.0) 10/25/17 15:39 Basophils % 0.4 % (0.0-2.0) 10/25/17 15:39 Sodium 138 mEq/L (136-145) 10/25/17 15:39 Potassium 4.3 mEq/L (3.5-5.1) 10/25/17 15:39 Chloride 106 mEq/L (98-107) 10/25/17 15:39 Carbon Dioxide 27.1 mEq/L (21.0-31.0) 10/25/17 15:39 Anion Gap 9.2 (7.0-16.0) 10/25/17 15:39 BUN 19 mg/dL (7-25) 10/25/17 15:39 Creatinine 0.7 mg/dL (0.7-1.3) 10/25/17 15:39 Est GFR ( Amer) > 60.0 ml/min (>90) 10/25/17 15:39 Est GFR (Non-Af Amer) > 60.0 ml/min 10/25/17 15:39 BUN/Creatinine Ratio 27.1 10/25/17 15:39 Glucose 102 mg/dL (70-105) 10/25/17 15:39 Hemoglobin A1c % 6.2 % (4.0-6.0) H 10/25/17 15:39 Calcium 8.8 mg/dL (8.6-10.3) 10/25/17 15:39 Total Bilirubin 0.5 mg/dL (0.3-1.0) 10/25/17 15:39 AST 18 U/L (13-39) 10/25/17 15:39 ALT 13 U/L (7-52) 10/25/17 15:39 Alkaline Phosphatase 54 U/L (34-104) 10/25/17 15:39 Total Protein 6.9 gm/dL (6.0-8.3) 10/25/17 15:39 Albumin 4.2 gm/dL (4.2-5.5) 10/25/17 15:39 Globulin 2.7 gm/dL 10/25/17 15:39 Albumin/Globulin Ratio 1.6 (1.0-1.8) 10/25/17 15:39 Triglycerides 126 mg/dL (<150) 10/25/17 15:39 Cholesterol 190 mg/dL (<200) 10/25/17 15:39 LDL Cholesterol Direct 116 mg/dL (75-193) 10/25/17 15:39 HDL Cholesterol 51 mg/dL (23-92) 10/25/17 15:39 TSH 1.96 uIU/ml (0.34-5.60) 10/25/17 15:39 Salicylates < 25.0 mg/L (30.0-100.0) L 10/25/17 15:39 Acetaminophen < 10.0 ug/mL (10.0-30.0) L 10/25/17 15:39 Ethyl Alcohol < 10 mg/dL (0-10) 10/25/17 15:39 RPR NONREACTIVE (NONREACTIVE) 10/25/17 15:39 - Physical Exam Vitals and I&O: Vital Signs Temp 98 F 11/01/17 06:06 Pulse 79 11/01/17 06:06 Resp 20 11/01/17 06:06 BP 159/70 11/01/17 06:06 Pulse Ox 97 10/31/17 20:23 Intake & Output 10/31/17 11/01/17 11/01/17 18:59 06:59 18:59 Intake Total 700 120 Balance 700 120 Intake: Oral 700 120 Other: # Voids 1 Active Medications: Current Medications Acetaminophen (Tylenol) 650 mg PO Q4HR PRN PRN Reason: Mild Pain / Temp above 100 Stop: 12/24/17 21:18 Al Hydrox/Mg Hydrox/Simethicone (Maalox) 30 ml PO Q4HR PRN PRN Reason: GI DISTRESS Stop: 12/24/17 21:18 Benztropine Mesylate (Cogentin) 1 mg PO DAILY [facility] Stop: 12/25/17 08:59 Last Admin: 10/31/17 11:21 Dose: 1 mg Docusate Sodium (Colace) 250 mg PO DAILY [facility] Stop: 12/25/17 08:59 Last Admin: 10/31/17 11:22 Dose: 250 mg Lorazepam (Ativan) 0.5 mg PO Q4HR PRN; Protocol PRN Reason: Anxiety Stop: 11/24/17 21:18 Magnesium Hydroxide (Milk Of Magnesia) 30 ml PO HS PRN PRN Reason: Constipation Magnesium Hydroxide (Milk Of Magnesia) 30 ml PO QMON [facility] Stop: 12/30/17 08:59 Last Admin: 10/31/17 11:22 Dose: 30 ml Multivitamins/Vitamin C (Theragran) 1 tab PO DAILY [facility] Stop: 12/25/17 08:59 Last Admin: 10/31/17 11:22 Dose: 1 tab Olanzapine (Zyprexa) 2.5 mg PO BID [facility]ATE[facility] PRN Reason: Protocol Stop: 12/29/17 16:59 Last Admin: 10/31/17 17:12 Dose: 2.5 mg Zolpidem Tartrate (Ambien) 5 mg PO HS PRN PRN Reason: Insomnia Stop: 12/24/17 21:18 Last Admin: 10/30/17 20:48 Dose: 5 mg General: Alert, No acute distress HEENT: Atraumatic, PERRLA, EOMI Neck: Supple, no JVD, no Thyromegaly Cardiovascular: Regular rate, Normal S1, Normal S2 Lungs: Clear to auscultation Abdomen: Bowel sounds Extremities: no Clubbing, no Cyanosis, no Edema - Procedures Procedures: Procedures Procedure Code Date COLONOSCOPY 45.23 06/28/11 ESOPHAGOGASTRODUODENOSCOPY [EGD] W/CLOSED BIOPSY 45.16 06/28/11 Assessment/Plan - Assessment Assessment: Psychosis Bipolar disorder depression schizophrenia PUD/GERD Anemia by history - Plan Plan: admit to [facility]. continue home meds. will follow
[2017-11-01] MEDS: Benztropine 1 MG TAB PO SCH (09:25)
[2017-11-01] MEDS: Multivitamin Tab PO SCH (09:26)
--- NOTE | 2017-11-01 15:48 | Progress Notes ---
DATE: 11/01/2017 PSYCHIATRIC PROGRESS NOTE SUBJECTIVE: Staff was spoken to. The patient is interviewed. Mood is noted to be irritable. Affect is continuous. Continues to be isolative and withdrawn. Paranoid delusions are noted. Aggressive behavior seems to be coming down. No side effects to the medications are noted. ASSESSMENT: The patient is still psychotic. PLAN: To continue the patient with the supportive therapy, encouraged the patient to verbalize the concerns rather than to act out. [facility]# [id number]
--- NOTE | 2017-11-02 08:40 | General Progress Note ---
Subjective - Review of Systems Service Date: 11/02/17 Subjective: Awake, alert, afebrile VS T98.8 P66 R20 BP 116/80 Objective - Results Result Diagrams: 10/25/17 15:39 10/25/17 15:39 Recent Labs: Laboratory Last Values WBC 8.7 Th/cmm (4.8-10.8) 10/25/17 15:39 RBC 5.20 Mil/cmm (3.80-5.80) 10/25/17 15:39 Hgb 16.1 gm/dL (12-16) 10/25/17 15:39 Hct 48.5 % (41.0-60) 10/25/17 15:39 MCV 93.4 fl (80-99) 10/25/17 15:39 MCH 31.0 pg (27.0-31.0) 10/25/17 15:39 MCHC Differential 33.2 pg (28.0-36.0) 10/25/17 15:39 RDW 13.2 % (11.5-20.0) 10/25/17 15:39 Plt Count 260 Th/cmm (150-400) 10/25/17 15:39 MPV 7.6 fl 10/25/17 15:39 Neutrophils % 78.1 % (40.0-80.0) 10/25/17 15:39 Lymphocytes % 14.6 % (20.0-50.0) L 10/25/17 15:39 Monocytes % 5.9 % (2.0-10.0) 10/25/17 15:39 Eosinophils % 1.0 % (0.0-5.0) 10/25/17 15:39 Basophils % 0.4 % (0.0-2.0) 10/25/17 15:39 Sodium 138 mEq/L (136-145) 10/25/17 15:39 Potassium 4.3 mEq/L (3.5-5.1) 10/25/17 15:39 Chloride 106 mEq/L (98-107) 10/25/17 15:39 Carbon Dioxide 27.1 mEq/L (21.0-31.0) 10/25/17 15:39 Anion Gap 9.2 (7.0-16.0) 10/25/17 15:39 BUN 19 mg/dL (7-25) 10/25/17 15:39 Creatinine 0.7 mg/dL (0.7-1.3) 10/25/17 15:39 Est GFR ( Amer) > 60.0 ml/min (>90) 10/25/17 15:39 Est GFR (Non-Af Amer) > 60.0 ml/min 10/25/17 15:39 BUN/Creatinine Ratio 27.1 10/25/17 15:39 Glucose 102 mg/dL (70-105) 10/25/17 15:39 Hemoglobin A1c % 6.2 % (4.0-6.0) H 10/25/17 15:39 Calcium 8.8 mg/dL (8.6-10.3) 10/25/17 15:39 Total Bilirubin 0.5 mg/dL (0.3-1.0) 10/25/17 15:39 AST 18 U/L (13-39) 10/25/17 15:39 ALT 13 U/L (7-52) 10/25/17 15:39 Alkaline Phosphatase 54 U/L (34-104) 10/25/17 15:39 Total Protein 6.9 gm/dL (6.0-8.3) 10/25/17 15:39 Albumin 4.2 gm/dL (4.2-5.5) 10/25/17 15:39 Globulin 2.7 gm/dL 10/25/17 15:39 Albumin/Globulin Ratio 1.6 (1.0-1.8) 10/25/17 15:39 Triglycerides 126 mg/dL (<150) 10/25/17 15:39 Cholesterol 190 mg/dL (<200) 10/25/17 15:39 LDL Cholesterol Direct 116 mg/dL (75-193) 10/25/17 15:39 HDL Cholesterol 51 mg/dL (23-92) 10/25/17 15:39 TSH 1.96 uIU/ml (0.34-5.60) 10/25/17 15:39 Salicylates < 25.0 mg/L (30.0-100.0) L 10/25/17 15:39 Acetaminophen < 10.0 ug/mL (10.0-30.0) L 10/25/17 15:39 Ethyl Alcohol < 10 mg/dL (0-10) 10/25/17 15:39 RPR NONREACTIVE (NONREACTIVE) 10/25/17 15:39 - Physical Exam Vitals and I&O: Vital Signs Temp 98.8 F 11/02/17 06:43 Pulse 66 11/02/17 06:43 Resp 20 11/02/17 06:43 BP 116/80 11/02/17 06:43 Pulse Ox 98 11/02/17 06:43 Intake & Output 11/01/17 11/02/17 11/02/17 18:59 06:59 18:59 Intake Total 950 120 Balance 950 120 Intake: Oral 950 120 Other: # Voids 5 3 # Bowel Movements 1 0 Active Medications: Current Medications Acetaminophen (Tylenol) 650 mg PO Q4HR PRN PRN Reason: Mild Pain / Temp above 100 Stop: 12/24/17 21:18 Al Hydrox/Mg Hydrox/Simethicone (Maalox) 30 ml PO Q4HR PRN PRN Reason: GI DISTRESS Stop: 12/24/17 21:18 Benztropine Mesylate (Cogentin) 1 mg PO DAILY [facility] Stop: 12/25/17 08:59 Last Admin: 11/01/17 09:25 Dose: 1 mg Docusate Sodium (Colace) 250 mg PO DAILY [facility] Stop: 12/25/17 08:59 Last Admin: 11/01/17 09:26 Dose: Not Given Lorazepam (Ativan) 0.5 mg PO Q4HR PRN; Protocol PRN Reason: Anxiety Stop: 11/24/17 21:18 Last Admin: 11/01/17 21:24 Dose: 0.5 mg Magnesium Hydroxide (Milk Of Magnesia) 30 ml PO HS PRN PRN Reason: Constipation Magnesium Hydroxide (Milk Of Magnesia) 30 ml PO QMON [facility] Stop: 12/30/17 08:59 Last Admin: 10/31/17 11:22 Dose: 30 ml Multivitamins/Vitamin C (Theragran) 1 tab PO DAILY [facility] Stop: 12/25/17 08:59 Last Admin: 11/01/17 09:26 Dose: Not Given Olanzapine (Zyprexa) 2.5 mg PO BID [facility] PRN Reason: Protocol Stop: 12/29/17 16:59 Last Admin: 11/01/17 17:25 Dose: 2.5 mg Zolpidem Tartrate (Ambien) 5 mg PO HS PRN PRN Reason: Insomnia Stop: 12/24/17 21:18 Last Admin: 10/30/17 20:48 Dose: 5 mg General: Alert, No acute distress HEENT: Atraumatic, PERRLA, EOMI Neck: Supple, no JVD, no Thyromegaly Cardiovascular: Regular rate, Normal S1, Normal S2 Lungs: Clear to auscultation Abdomen: Bowel sounds Extremities: no Clubbing, no Cyanosis, no Edema - Procedures Procedures: Procedures Procedure Code Date COLONOSCOPY 45.06/28/11 ESOPHAGOGASTRODUODENOSCOPY [EGD] W/CLOSED BIOPSY 45.16 06/28/11 Assessment/Plan - Assessment Assessment: Psychosis Bipolar disorder depression schizophrenia PUD/GERD Anemia by history - Plan Plan: admit to [facility]. continue home meds. will follow
[2017-11-02] MEDS: Benztropine 1 MG TAB PO SCH (08:43)
[2017-11-02] MEDS: Multivitamin Tab PO SCH (17:08)
--- NOTE | 2017-11-03 03:41 | Progress Notes ---
DATE: 11/02/2017 SUBJECTIVE: Staff was spoken to. The patient is interviewed. Mood is noted to be irritable. Affect is constricted. The patient has paranoid delusions, but denies any command hallucinations. Insight and judgment at this time are to be still impaired. Impulse control seems to be limited. No side effects to the medications are noted. ASSESSMENT: The patient is still psychotic. PLAN: To continue the patient with the supportive therapy, encouraged the patient to verbalize the concerns rather than to act out. Please note that the patient is not ready to be discharged to a lower level of care. JOB# [id number]
--- NOTE | 2017-11-03 08:38 | General Progress Note ---
Subjective - Review of Systems Service Date: 11/03/17 Subjective: Awake, alert, afebrile VS T97.9 P76 R20 BP 130/71 Objective - Results Result Diagrams: 10/25/17 15:39 10/25/17 15:39 Recent Labs: Laboratory Last Values WBC 8.7 Th/cmm (4.8-10.8) 10/25/17 15:39 RBC 5.20 Mil/cmm (3.80-5.80) 10/25/17 15:39 Hgb 16.1 gm/dL (12-16) 10/25/17 15:39 Hct 48.5 % (41.0-60) 10/25/17 15:39 MCV 93.4 fl (80-99) 10/25/17 15:39 MCH 31.0 pg (27.0-31.0) 10/25/17 15:39 MCHC Differential 33.2 pg (28.0-36.0) 10/25/17 15:39 RDW 13.2 % (11.5-20.0) 10/25/17 15:39 Plt Count 260 Th/cmm (150-400) 10/25/17 15:39 MPV 7.6 fl 10/25/17 15:39 Neutrophils % 78.1 % (40.0-80.0) 10/25/17 15:39 Lymphocytes % 14.6 % (20.0-50.0) L 10/25/17 15:39 Monocytes % 5.9 % (2.0-10.0) 10/25/17 15:39 Eosinophils % 1.0 % (0.0-5.0) 10/25/17 15:39 Basophils % 0.4 % (0.0-2.0) 10/25/17 15:39 Sodium 138 mEq/L (136-145) 10/25/17 15:39 Potassium 4.3 mEq/L (3.5-5.1) 10/25/17 15:39 Chloride 106 mEq/L (98-107) 10/25/17 15:39 Carbon Dioxide 27.1 mEq/L (21.0-31.0) 10/25/17 15:39 Anion Gap 9.2 (7.0-16.0) 10/25/17 15:39 BUN 19 mg/dL (7-25) 10/25/17 15:39 Creatinine 0.7 mg/dL (0.7-1.3) 10/25/17 15:39 Est GFR ( Amer) > 60.0 ml/min (>90) 10/25/17 15:39 Est GFR (Non-Af Amer) > 60.0 ml/min 10/25/17 15:39 BUN/Creatinine Ratio 27.1 10/25/17 15:39 Glucose 102 mg/dL (70-105) 10/25/17 15:39 POC Glucose 223 MG/DL (70 - 105) H 11/02/17 20:30 Hemoglobin A1c % 6.2 % (4.0-6.0) H 10/25/17 15:39 Calcium 8.8 mg/dL (8.6-10.3) 10/25/17 15:39 Total Bilirubin 0.5 mg/dL (0.3-1.0) 10/25/17 15:39 AST 18 U/L (13-39) 10/25/17 15:39 ALT 13 U/L (7-52) 10/25/17 15:39 Alkaline Phosphatase 54 U/L (34-104) 10/25/17 15:39 Total Protein 6.9 gm/dL (6.0-8.3) 10/25/17 15:39 Albumin 4.2 gm/dL (4.2-5.5) 10/25/17 15:39 Globulin 2.7 gm/dL 10/25/17 15:39 Albumin/Globulin Ratio 1.6 (1.0-1.8) 10/25/17 15:39 Triglycerides 126 mg/dL (<150) 10/25/17 15:39 Cholesterol 190 mg/dL (<200) 10/25/17 15:39 LDL Cholesterol Direct 116 mg/dL (75-193) 10/25/17 15:39 HDL Cholesterol 51 mg/dL (23-92) 10/25/17 15:39 TSH 1.96 uIU/ml (0.34-5.60) 10/25/17 15:39 Salicylates < 25.0 mg/L (30.0-100.0) L 10/25/17 15:39 Acetaminophen < 10.0 ug/mL (10.0-30.0) L 10/25/17 15:39 Ethyl Alcohol < 10 mg/dL (0-10) 10/25/17 15:39 RPR NONREACTIVE (NONREACTIVE) 10/25/17 15:39 - Physical Exam Vitals and I&O: Vital Signs Temp 97.9 F 11/03/17 06:25 Pulse 76 11/03/17 06:25 Resp 20 11/03/17 06:25 BP 130/71 11/03/17 06:25 Pulse Ox 97 11/03/17 06:25 Intake & Output 11/02/17 11/03/17 11/03/17 18:59 06:59 18:59 Intake Total 1800 120 Balance 1800 120 Intake: Oral 1800 120 Other: # Voids 4 3 # Bowel Movements 0 Active Medications: Current Medications Acetaminophen (Tylenol) 650 mg PO Q4HR PRN PRN Reason: Mild Pain / Temp above 100 Stop: 12/24/17 21:18 Al Hydrox/Mg Hydrox/Simethicone (Maalox) 30 ml PO Q4HR PRN PRN Reason: GI DISTRESS Stop: 12/24/17 21:18 Benztropine Mesylate (Cogentin) 1 mg PO DAILY [facility] Stop: 12/25/17 08:59 Last Admin: 11/02/17 08:43 Dose: 1 mg Docusate Sodium (Colace) 250 mg PO DAILY [facility] Stop: 12/25/17 08:59 Last Admin: 11/02/17 17:08 Dose: Not Given Lorazepam (Ativan) 0.5 mg PO Q4HR PRN; Protocol PRN Reason: Anxiety Stop: 11/24/17 21:18 Last Admin: 11/02/17 08:43 Dose: 0.5 mg Magnesium Hydroxide (Milk Of Magnesia) 30 ml PO HS PRN PRN Reason: Constipation Magnesium Hydroxide (Milk Of Magnesia) 30 ml PO QMON [facility] Stop: 12/30/17 08:59 Last Admin: 10/31/17 11:22 Dose: 30 ml Multivitamins/Vitamin C (Theragran) 1 tab PO DAILY [facility] Stop: 12/25/17 08:59 Last Admin: 11/02/17 17:08 Dose: Not Given Olanzapine (Zyprexa) 2.5 mg PO BID [facility] PRN Reason: Protocol Stop: 12/29/17 16:59 Last Admin: 11/02/17 17:05 Dose: 2.5 mg Zolpidem Tartrate (Ambien) 5 mg PO HS PRN PRN Reason: Insomnia Stop: 12/24/17 21:18 Last Admin: 10/30/17 20:48 Dose: 5 mg General: Alert, No acute distress HEENT: Atraumatic, PERRLA, EOMI Neck: Supple, no JVD, no Thyromegaly Cardiovascular: Regular rate, Normal S1, Normal S2 Lungs: Clear to auscultation Abdomen: Bowel sounds Extremities: no Clubbing, no Cyanosis, no Edema - Procedures Procedures: Procedures Procedure Code Date COLONOSCOPY 45.23 06/28/11 ESOPHAGOGASTRODUODENOSCOPY [EGD] W/CLOSED BIOPSY 45.16 06/28/11 Assessment/Plan - Assessment Assessment: Psychosis Bipolar disorder depression schizophrenia PUD/GERD Anemia by history - Plan Plan: admit to [facility]. continue home meds. will follow
[2017-11-03] MEDS: Benztropine 1 MG TAB PO SCH (10:00)
[2017-11-03] MEDS: Multivitamin Tab PO SCH (10:00)
--- NOTE | 2017-11-03 18:42 | Progress Notes ---
DATE: 11/03/2017 SUBJECTIVE: Staff was spoken to. The patient is interviewed. Mood is noted to be irritable. Affect is constricted. The patient continues to be paranoid. The patient is isolative and withdrawn. No side effects to the medications are noted at this time. The patient is currently on 2.5 mg of the olanzapine and has been able to tolerate the medication, not able to ready to discharge the patient to a lower level of care because of the patient's impulsivity. [facility]# [id number]
--- NOTE | 2017-11-04 08:32 | General Progress Note ---
Subjective - Review of Systems Service Date: 11/04/17 Subjective: Awake, alert, afebrile VS T98.3 P79 R20 BP 131/72 random BS 220 Objective - Results Result Diagrams: 10/25/17 15:39 10/25/17 15:39 Recent Labs: Laboratory Last Values WBC 8.7 Th/cmm (4.8-10.8) 10/25/17 15:39 RBC 5.20 Mil/cmm (3.80-5.80) 10/25/17 15:39 Hgb 16.1 gm/dL (12-16) 10/25/17 15:39 Hct 48.5 % (41.0-60) 10/25/17 15:39 MCV 93.4 fl (80-99) 10/25/17 15:39 MCH 31.0 pg (27.0-31.0) 10/25/17 15:39 MCHC Differential 33.2 pg (28.0-36.0) 10/25/17 15:39 RDW 13.2 % (11.5-20.0) 10/25/17 15:39 Plt Count 260 Th/cmm (150-400) 10/25/17 15:39 MPV 7.6 fl 10/25/17 15:39 Neutrophils % 78.1 % (40.0-80.0) 10/25/17 15:39 Lymphocytes % 14.6 % (20.0-50.0) L 10/25/17 15:39 Monocytes % 5.9 % (2.0-10.0) 10/25/17 15:39 Eosinophils % 1.0 % (0.0-5.0) 10/25/17 15:39 Basophils % 0.4 % (0.0-2.0) 10/25/17 15:39 Sodium 138 mEq/L (136-145) 10/25/17 15:39 Potassium 4.3 mEq/L (3.5-5.1) 10/25/17 15:39 Chloride 106 mEq/L (98-107) 10/25/17 15:39 Carbon Dioxide 27.1 mEq/L (21.0-31.0) 10/25/17 15:39 Anion Gap 9.2 (7.0-16.0) 10/25/17 15:39 BUN 19 mg/dL (7-25) 10/25/17 15:39 Creatinine 0.7 mg/dL (0.7-1.3) 10/25/17 15:39 Est GFR ( Amer) > 60.0 ml/min (>90) 10/25/17 15:39 Est GFR (Non-Af Amer) > 60.0 ml/min 10/25/17 15:39 BUN/Creatinine Ratio 27.1 10/25/17 15:39 Glucose 102 mg/dL (70-105) 10/25/17 15:39 POC Glucose 223 MG/DL (70 - 105) H 11/02/17 20:30 Hemoglobin A1c % 6.2 % (4.0-6.0) H 10/25/17 15:39 Calcium 8.8 mg/dL (8.6-10.3) 10/25/17 15:39 Total Bilirubin 0.5 mg/dL (0.3-1.0) 10/25/17 15:39 AST 18 U/L (13-39) 10/25/17 15:39 ALT 13 U/L (7-52) 10/25/17 15:39 Alkaline Phosphatase 54 U/L (34-104) 10/25/17 15:39 Total Protein 6.9 gm/dL (6.0-8.3) 10/25/17 15:39 Albumin 4.2 gm/dL (4.2-5.5) 10/25/17 15:39 Globulin 2.7 gm/dL 10/25/17 15:39 Albumin/Globulin Ratio 1.6 (1.0-1.8) 10/25/17 15:39 Triglycerides 126 mg/dL (<150) 10/25/17 15:39 Cholesterol 190 mg/dL (<200) 10/25/17 15:39 LDL Cholesterol Direct 116 mg/dL (75-193) 10/25/17 15:39 HDL Cholesterol 51 mg/dL (23-92) 10/25/17 15:39 TSH 1.96 uIU/ml (0.34-5.60) 10/25/17 15:39 Salicylates < 25.0 mg/L (30.0-100.0) L 10/25/17 15:39 Acetaminophen < 10.0 ug/mL (10.0-30.0) L 10/25/17 15:39 Ethyl Alcohol < 10 mg/dL (0-10) 10/25/17 15:39 RPR NONREACTIVE (NONREACTIVE) 10/25/17 15:39 - Physical Exam Vitals and I&O: Vital Signs Temp 98.6 F 11/03/17 20:00 Pulse 79 11/03/17 20:00 Resp 20 11/03/17 20:00 BP 131/72 11/03/17 20:00 Pulse Ox 98 11/03/17 20:00 Intake & Output 11/03/17 11/04/17 11/04/17 18:59 06:59 18:59 Intake Total 1000 Balance 1000 Intake: Oral 1000 Other: # Voids 4 # Bowel Movements 1 Active Medications: Current Medications Acetaminophen (Tylenol) 650 mg PO Q4HR PRN PRN Reason: Mild Pain / Temp above 100 Stop: 12/24/17 21:18 Al Hydrox/Mg Hydrox/Simethicone (Maalox) 30 ml PO Q4HR PRN PRN Reason: GI DISTRESS Stop: 12/24/17 21:18 Benztropine Mesylate (Cogentin) 1 mg PO DAILY [facility] Stop: 12/25/17 08:59 Last Admin: 11/03/17 10:00 Dose: Not Given Docusate Sodium (Colace) 250 mg PO DAILY [facility] Stop: 12/25/17 08:59 Last Admin: 11/03/17 10:00 Dose: Not Given Lorazepam (Ativan) 0.5 mg PO Q4HR PRN; Protocol PRN Reason: Anxiety Stop: 11/24/17 21:18 Last Admin: 11/02/17 08:43 Dose: 0.5 mg Magnesium Hydroxide (Milk Of Magnesia) 30 ml PO HS PRN PRN Reason: Constipation Magnesium Hydroxide (Milk Of Magnesia) 30 ml PO QMON [facility] Stop: 12/30/17 08:59 Last Admin: 10/31/17 11:22 Dose: 30 ml Multivitamins/Vitamin C (Theragran) 1 tab PO DAILY [facility] Stop: 12/25/17 08:59 Last Admin: 11/03/17 10:00 Dose: Not Given Olanzapine (Zyprexa) 2.5 mg PO BID [facility] PRN Reason: Protocol Stop: 12/29/17 16:59 Last Admin: 11/03/17 17:53 Dose: 2.5 mg Zolpidem Tartrate (Ambien) 5 mg PO HS PRN PRN Reason: Insomnia Stop: 12/24/17 21:18 Last Admin: 10/30/17 20:48 Dose: 5 mg General: Alert, No acute distress HEENT: Atraumatic, PERRLA, EOMI Neck: Supple, no JVD, no Thyromegaly Cardiovascular: Regular rate, Normal S1, Normal S2 Lungs: Clear to auscultation Abdomen: Bowel sounds Extremities: no Clubbing, no Cyanosis, no Edema - Procedures Procedures: Procedures Procedure Code Date COLONOSCOPY 45.23 06/28/11 ESOPHAGOGASTRODUODENOSCOPY [EGD] W/CLOSED BIOPSY 45.16 06/28/11 Assessment/Plan - Assessment Assessment: Psychosis Bipolar disorder depression schizophrenia PUD/GERD Anemia by history borderline DM - [facility]. will follow accuchecks ac hs, low dose sliding scale. Nutritional Asmnt/Malnutr-PDOC - Dietary Evaluation Malnutrition Findings (Please click <Entered> for more info): Nutritional Asmnt/Malnutrition Start: 11/03/17 16: 14 Text: Status: Complete Freq: Document 11/03/17 16:14 [email or web address] (Rec: 11/03/17 16:19 [email or web address]) Nutritional Asmnt/Malnutrition Patient General Information Nutritional Screening Low Risk Diagnosis psychosis Pertinent Medical Hx/Surgical Hx PMH, PUD/GERD, HTN, anemia, depression, schizophreania Subjective Information Per records, PO intake 75-100% , meeting 100% of nutritional needs. Current Diet Order/ Nutrition Support regular Pertinent Medications colace, theragran Pertinent Labs 10/25 Na 138, K 4.3, Cl 106, BUN 19, Cr 0.7, Glucose 102, A1c 6.2, Alb 4.2 11/02 POC 223 Nutritional Hx/Data Height 1.7 m Height (Calculated Centimeters) 170.2 Current Weight (lbs) 58.967 kg Weight (Calculated Kilograms) 59.0 Weight (Calculated Grams) 88184.0 [place] Body Weight 148 % [place] Body Weight 88 Body Mass Index (BMI) 20.3 Weight Status Approriate GI Symptoms GI Symptoms None Last BM 11/01 Difficult in: None Skin Integrity/Comment: dryness Estimated Nutritional Goals BEE in Kcals: Using Current wt Calories/Kcals/Kg 25-30 Kcals Calculated 9876-5109 Protein: Using Current wt Protein g/k Protein Calculated 59 Fluid: ml 1475-1770ml (1ml/kcal) Nutritional Problem No current Nutrition Prob Problem N/A Intervention/Recommendation Comments 1. Continue with current diet as ordered. If pt has hyperglycemia, consider CCHO- 60gm diet. 2. Monitor PO intake, wt, labs and skin integrity 3. F/U as low risk in 7d ays, 2/8 Expected Outcomes/Goals Expected Outcomes/Goals 1. PO intake to meet at least 75% of nutritional needs. 2. Wt stability, skin to remain intact, labs to approach WNL.
[2017-11-04] MEDS: Benztropine 1 MG TAB PO SCH (10:02)
[2017-11-04] MEDS: Multivitamin Tab PO SCH (10:03)
[2017-11-04] MEDS: INSULIN ASPART SLIDING SCALE 100 UNITS/ML UNIT SUBQ SCH ×3 (12:07→21:28)
--- NOTE | 2017-11-05 02:42 | Progress Notes ---
DATE: 11/04/2017 SUBJECTIVE: Staff was spoken to. The patient is interviewed. Mood is noted to be irritable. Affect is constricted. Insight is noted to be still impaired. Coping skills are noted to be poor still. The patient today has been getting easily agitated. The patient is currently on 2.5 mg of Zyprexa and has been able to tolerate the medication. No side effects to the medications are noted. ASSESSMENT: The patient is still impulsive. PLAN: To continue the patient with supportive therapy. I encouraged the patient to verbalize the concerns rather than to act out. JOB# [id number]
[2017-11-05] MEDS: INSULIN ASPART SLIDING SCALE 100 UNITS/ML UNIT SUBQ SCH ×4 (06:56→20:52)
[2017-11-05] MEDS ORDERED: Acetaminophen 500 MG TAB PO PRN (08:01)
--- NOTE | 2017-11-05 08:02 | General Progress Note ---
Subjective - Review of Systems Service Date: 11/05/17 Subjective: Awake, alert, afebrile VS T97.3 P53 R22 BP 143/64 random BS 89 Objective - Results Result Diagrams: 10/25/17 15:39 10/25/17 15:39 Recent Labs: Laboratory Last Values WBC 8.7 Th/cmm (4.8-10.8) 10/25/17 15:39 RBC 5.20 Mil/cmm (3.80-5.80) 10/25/17 15:39 Hgb 16.1 gm/dL (12-16) 10/25/17 15:39 Hct 48.5 % (41.0-60) 10/25/17 15:39 MCV 93.4 fl (80-99) 10/25/17 15:39 MCH 31.0 pg (27.0-31.0) 10/25/17 15:39 MCHC Differential 33.2 pg (28.0-36.0) 10/25/17 15:39 RDW 13.2 % (11.5-20.0) 10/25/17 15:39 Plt Count 260 Th/cmm (150-400) 10/25/17 15:39 MPV 7.6 fl 10/25/17 15:39 Neutrophils % 78.1 % (40.0-80.0) 10/25/17 15:39 Lymphocytes % 14.6 % (20.0-50.0) L 10/25/17 15:39 Monocytes % 5.9 % (2.0-10.0) 10/25/17 15:39 Eosinophils % 1.0 % (0.0-5.0) 10/25/17 15:39 Basophils % 0.4 % (0.0-2.0) 10/25/17 15:39 Sodium 138 mEq/L (136-145) 10/25/17 15:39 Potassium 4.3 mEq/L (3.5-5.1) 10/25/17 15:39 Chloride 106 mEq/L (98-107) 10/25/17 15:39 Carbon Dioxide 27.1 mEq/L (21.0-31.0) 10/25/17 15:39 Anion Gap 9.2 (7.0-16.0) 10/25/17 15:39 BUN 19 mg/dL (7-25) 10/25/17 15:39 Creatinine 0.7 mg/dL (0.7-1.3) 10/25/17 15:39 Est GFR ( Amer) > 60.0 ml/min (>90) 10/25/17 15:39 Est GFR (Non-Af Amer) > 60.0 ml/min 10/25/17 15:39 BUN/Creatinine Ratio 27.1 10/25/17 15:39 Glucose 102 mg/dL (70-105) 10/25/17 15:39 POC Glucose 89 MG/DL (70 - 105) 11/05/17 06:33 Hemoglobin A1c % 6.2 % (4.0-6.0) H 10/25/17 15:39 Calcium 8.8 mg/dL (8.6-10.3) 10/25/17 15:39 Total Bilirubin 0.5 mg/dL (0.3-1.0) 10/25/17 15:39 AST 18 U/L (13-39) 10/25/17 15:39 ALT 13 U/L (7-52) 10/25/17 15:39 Alkaline Phosphatase 54 U/L (34-104) 10/25/17 15:39 Total Protein 6.9 gm/dL (6.0-8.3) 10/25/17 15:39 Albumin 4.2 gm/dL (4.2-5.5) 10/25/17 15:39 Globulin 2.7 gm/dL 10/25/17 15:39 Albumin/Globulin Ratio 1.6 (1.0-1.8) 10/25/17 15:39 Triglycerides 126 mg/dL (<150) 10/25/17 15:39 Cholesterol 190 mg/dL (<200) 10/25/17 15:39 LDL Cholesterol Direct 116 mg/dL (75-193) 10/25/17 15:39 HDL Cholesterol 51 mg/dL (23-92) 10/25/17 15:39 TSH 1.96 uIU/ml (0.34-5.60) 10/25/17 15:39 Salicylates < 25.0 mg/L (30.0-100.0) L 10/25/17 15:39 Acetaminophen < 10.0 ug/mL (10.0-30.0) L 10/25/17 15:39 Ethyl Alcohol < 10 mg/dL (0-10) 10/25/17 15:39 RPR NONREACTIVE (NONREACTIVE) 10/25/17 15:39 - Physical Exam Vitals and I&O: Vital Signs Temp 97.3 F 11/05/17 05:58 Pulse 53 11/05/17 05:58 Resp 22 11/05/17 05:58 BP 143/64 11/05/17 05:58 Pulse Ox 98 11/05/17 05:58 Intake & Output 11/04/17 11/05/17 11/05/17 18:59 06:59 18:59 Intake Total 1000 Balance 1000 Intake: Oral 1000 Other: # Voids 3 # Bowel Movements 1 Active Medications: Current Medications Acetaminophen (Tylenol) 650 mg PO Q4HR PRN PRN Reason: Mild Pain / Temp above 100 Stop: 12/24/17 21:18 Al Hydrox/Mg Hydrox/Simethicone (Maalox) 30 ml PO Q4HR PRN PRN Reason: GI DISTRESS Stop: 12/24/17 21:18 Benztropine Mesylate (Cogentin) 1 mg PO DAILY [facility] Stop: 12/25/17 08:59 Last Admin: 11/04/17 10:02 Dose: 1 mg Docusate Sodium (Colace) 250 mg PO DAILY [facility] Stop: 12/25/17 08:59 Last Admin: 11/04/17 10:03 Dose: 250 mg Insulin Aspart (Novolog Insulin Sliding Scale) 0 units SUBQ ACHS KATEY PRN Reason: Protocol Stop: 01/03/18 11:29 Last Admin: 11/05/17 06:56 Dose: Not Given Lorazepam (Ativan) 0.5 mg PO Q4HR PRN; Protocol PRN Reason: Anxiety Stop: 11/24/17 21:18 Last Admin: 11/02/17 08:43 Dose: 0.5 mg Magnesium Hydroxide (Milk Of Magnesia) 30 ml PO HS PRN PRN Reason: Constipation Magnesium Hydroxide (Milk Of Magnesia) 30 ml PO QMON [facility] Stop: 12/30/17 08:59 Last Admin: 10/31/17 11:22 Dose: 30 ml Multivitamins/Vitamin C (Theragran) 1 tab PO DAILY [facility] Stop: 12/25/17 08:59 Last Admin: 11/04/17 10:03 Dose: 1 tab Olanzapine (Zyprexa) 2.5 mg PO BID KATEY PRN Reason: Protocol Stop: 12/29/17 16:59 Last Admin: 11/04/17 17:09 Dose: 2.5 mg Zolpidem Tartrate (Ambien) 5 mg PO HS PRN PRN Reason: Insomnia Stop: 12/24/17 21:18 Last Admin: 10/30/17 20:48 Dose: 5 mg General: Alert, No acute distress HEENT: Atraumatic, PERRLA, EOMI Neck: Supple, no JVD, no Thyromegaly Cardiovascular: Regular rate, Normal S1, Normal S2 Lungs: Clear to auscultation Abdomen: Bowel sounds Extremities: no Clubbing, no Cyanosis, no Edema - Procedures Procedures: Procedures Procedure Code Date COLONOSCOPY 45.06/28/11 ESOPHAGOGASTRODUODENOSCOPY [EGD] W/CLOSED BIOPSY 45.06/28/11 Assessment/Plan - Assessment Assessment: Psychosis Bipolar disorder depression schizophrenia PUD/GERD Anemia by history borderline DM - Plan Plan: admit to [facility]. continue home meds. will follow accuchecks ac hs, low dose sliding scale. Nutritional Asmnt/Malnutr-PDOC - Dietary Evaluation Malnutrition Findings (Please click <Entered> for more info): Nutritional Asmnt/Malnutrition Start: 11/03/17 16: 14 Text: Status: Complete Freq: Document 11/03/17 16:14 [email or web address] (Rec: 11/03/17 16:19 [email or web address]) Nutritional Asmnt/Malnutrition Patient General Information Nutritional Screening Low Risk Diagnosis psychosis Pertinent Medical Hx/Surgical Hx PMH, PUD/GERD, HTN, anemia, depression, schizophreania Subjective Information Per records, PO intake 75-100% , meeting 100% of nutritional needs. Current Diet Order/ Nutrition Support regular Pertinent Medications colace, theragran Pertinent Labs 10/25 Na 138, K 4.3, Cl 106, BUN 19, Cr 0.7, Glucose 102, A1c 6.2, Alb 4.2 11/02 POC 223 Nutritional Hx/Data Height 1.7 m Height (Calculated Centimeters) 170.2 Current Weight (lbs) 58.967 kg Weight (Calculated Kilograms) 59.0 Weight (Calculated Grams) 05963.0 Pharr Body Weight 148 % Pharr Body Weight 88 Body Mass Index (BMI) 20.3 Weight Status Approriate GI Symptoms GI Symptoms None Last BM 11/01 Difficult in: None Skin Integrity/Comment: dryness Estimated Nutritional Goals BEE in Kcals: Using Current wt Calories/Kcals/Kg 25-30 Kcals Calculated 6518-3322 Protein: Using Current wt Protein g/k Protein Calculated 59 Fluid: ml 1475-1770ml (1ml/kcal) Nutritional Problem No current Nutrition Prob Problem N/A Intervention/Recommendation Comments 1. Continue with current diet as ordered. If pt has hyperglycemia, consider CCHO- 60gm diet. 2. Monitor PO intake, wt, labs and skin integrity 3. F/U as low risk in 7d ays, 2/8 Expected Outcomes/Goals Expected Outcomes/Goals 1. PO intake to meet at least 75% of nutritional needs. 2. Wt stability, skin to remain intact, labs to approach WNL.
[2017-11-05] MEDS ORDERED: Non-Formulary Item 1 EA (Multivitamin [Multi-Day Vitamins] 1 TAB) PO SCH (09:00)
[2017-11-05] MEDS: Benztropine 1 MG TAB PO SCH (09:25)
[2017-11-05] MEDS: Multivitamin Tab PO SCH (09:25)
--- NOTE | 2017-11-06 00:46 | Progress Notes ---
DATE: 11/05/2017 SUBJECTIVE: Staff was spoken to. The patient is interviewed. Mood is noted to be irritable. Affect is constricted. Insight and judgment to be still impaired. Impulse control is noted to be poor. Coping skills are noted to very poor. The patient has been having difficult time to cope with the stress. No side effects to medications are noted. The patient is currently on olanzapine 2.5 mg b.i.d. and paranoia. He has major concerns, but patient has been so far able to verbalize the concerns rather than to act out. ASSESSMENT: The patient is still depressed. PLAN: To continue patient with the supportive therapy, encouraged the patient to verbalize the concerns rather than to act out. [facility]# [id number]
--- NOTE | 2017-11-06 06:15 | General Progress Note ---
Subjective - Review of Systems Service Date: 11/06/17 Subjective: Awake, alert, afebrile VS T97.4 P74 R20 BP 105/61 random BS 87 Objective - Results Result Diagrams: 10/25/17 15:39 10/25/17 15:39 Recent Labs: Laboratory Last Values WBC 8.7 Th/cmm (4.8-10.8) 10/25/17 15:39 RBC 5.20 Mil/cmm (3.80-5.80) 10/25/17 15:39 Hgb 16.1 gm/dL (12-16) 10/25/17 15:39 Hct 48.5 % (41.0-60) 10/25/17 15:39 MCV 93.4 fl (80-99) 10/25/17 15:39 MCH 31.0 pg (27.0-31.0) 10/25/17 15:39 MCHC Differential 33.2 pg (28.0-36.0) 10/25/17 15:39 RDW 13.2 % (11.5-20.0) 10/25/17 15:39 Plt Count 260 Th/cmm (150-400) 10/25/17 15:39 MPV 7.6 fl 10/25/17 15:39 Neutrophils % 78.1 % (40.0-80.0) 10/25/17 15:39 Lymphocytes % 14.6 % (20.0-50.0) L 10/25/17 15:39 Monocytes % 5.9 % (2.0-10.0) 10/25/17 15:39 Eosinophils % 1.0 % (0.0-5.0) 10/25/17 15:39 Basophils % 0.4 % (0.0-2.0) 10/25/17 15:39 Sodium 138 mEq/L (136-145) 10/25/17 15:39 Potassium 4.3 mEq/L (3.5-5.1) 10/25/17 15:39 Chloride 106 mEq/L (98-107) 10/25/17 15:39 Carbon Dioxide 27.1 mEq/L (21.0-31.0) 10/25/17 15:39 Anion Gap 9.2 (7.0-16.0) 10/25/17 15:39 BUN 19 mg/dL (7-25) 10/25/17 15:39 Creatinine 0.7 mg/dL (0.7-1.3) 10/25/17 15:39 Est GFR ( Amer) > 60.0 ml/min (>90) 10/25/17 15:39 Est GFR (Non-Af Amer) > 60.0 ml/min 10/25/17 15:39 BUN/Creatinine Ratio 27.1 10/25/17 15:39 Glucose 102 mg/dL (70-105) 10/25/17 15:39 POC Glucose 87 MG/DL (70 - 105) 11/06/17 05:35 Hemoglobin A1c % 6.2 % (4.0-6.0) H 10/25/17 15:39 Calcium 8.8 mg/dL (8.6-10.3) 10/25/17 15:39 Total Bilirubin 0.5 mg/dL (0.3-1.0) 10/25/17 15:39 AST 18 U/L (13-39) 10/25/17 15:39 ALT 13 U/L (7-52) 10/25/17 15:39 Alkaline Phosphatase 54 U/L (34-104) 10/25/17 15:39 Total Protein 6.9 gm/dL (6.0-8.3) 10/25/17 15:39 Albumin 4.2 gm/dL (4.2-5.5) 10/25/17 15:39 Globulin 2.7 gm/dL 10/25/17 15:39 Albumin/Globulin Ratio 1.6 (1.0-1.8) 10/25/17 15:39 Triglycerides 126 mg/dL (<150) 10/25/17 15:39 Cholesterol 190 mg/dL (<200) 10/25/17 15:39 LDL Cholesterol Direct 116 mg/dL (75-193) 10/25/17 15:39 HDL Cholesterol 51 mg/dL (23-92) 10/25/17 15:39 TSH 1.96 uIU/ml (0.34-5.60) 10/25/17 15:39 Salicylates < 25.0 mg/L (30.0-100.0) L 10/25/17 15:39 Acetaminophen < 10.0 ug/mL (10.0-30.0) L 10/25/17 15:39 Ethyl Alcohol < 10 mg/dL (0-10) 10/25/17 15:39 RPR NONREACTIVE (NONREACTIVE) 10/25/17 15:39 - Physical Exam Vitals and I&O: Vital Signs Temp 97.4 F 11/05/17 16:12 Pulse 74 11/05/17 16:12 Resp 20 11/05/17 16:12 BP 105/61 11/05/17 16:12 Pulse Ox 97 11/05/17 16:12 Intake & Output 11/05/17 11/05/17 11/06/17 06:59 18:59 06:59 Intake Total 1000 240 Balance 1000 240 Intake: Oral 1000 240 Other: # Voids 4 1 # Bowel Movements 1 Active Medications: Current Medications Acetaminophen (Tylenol) 650 mg PO Q4HR PRN PRN Reason: Mild Pain / Temp above 100 Stop: 12/24/17 21:18 Acetaminophen (Tylenol Extra Strength) 500 mg PO Q6H PRN PRN Reason: pain/ fever >101 Stop: 01/04/18 08:00 Al Hydrox/Mg Hydrox/Simethicone (Maalox) 30 ml PO Q4HR PRN PRN Reason: GI DISTRESS Stop: 12/24/17 21:18 Benztropine Mesylate (Cogentin) 1 mg PO DAILY [facility] Stop: 12/25/17 08:59 Last Admin: 11/05/17 09:25 Dose: 1 mg Docusate Sodium (Colace) 250 mg PO DAILY [facility] Stop: 12/25/17 08:59 Last Admin: 11/05/17 09:26 Dose: 250 mg Insulin Aspart (Novolog Insulin Sliding Scale) 0 units SUBQ ACHS KATEY PRN Reason: Protocol Stop: 01/03/18 11:29 Last Admin: 11/05/17 20:52 Dose: Not Given Lorazepam (Ativan) 0.5 mg PO Q4HR PRN; Protocol PRN Reason: Anxiety Stop: 11/24/17 21:18 Last Admin: 11/02/17 08:43 Dose: 0.5 mg Magnesium Hydroxide (Milk Of Magnesia) 30 ml PO HS PRN PRN Reason: Constipation Magnesium Hydroxide (Milk Of Magnesia) 30 ml PO QMON [facility] Stop: 12/30/17 08:59 Last Admin: 10/31/17 11:22 Dose: 30 ml Multivitamins/Vitamin C (Theragran) 1 tab PO DAILY [facility] Stop: 12/25/17 08:59 Last Admin: 11/05/17 09:25 Dose: 1 tab Olanzapine (Zyprexa) 2.5 mg PO BID KATEY PRN Reason: Protocol Stop: 12/29/17 16:59 Last Admin: 11/05/17 17:26 Dose: 2.5 mg Zolpidem Tartrate (Ambien) 5 mg PO HS PRN PRN Reason: Insomnia Stop: 12/24/17 21:18 Last Admin: 10/30/17 20:48 Dose: 5 mg General: Alert, No acute distress HEENT: Atraumatic, PERRLA, EOMI Neck: Supple, no JVD, no Thyromegaly Cardiovascular: Regular rate, Normal S1, Normal S2 Lungs: Clear to auscultation Abdomen: Bowel sounds Extremities: no Clubbing, no Cyanosis, no Edema - Procedures Procedures: Procedures Procedure Code Date COLONOSCOPY 45.06/28/11 ESOPHAGOGASTRODUODENOSCOPY [EGD] W/CLOSED BIOPSY 45.16 06/28/11 Assessment/Plan - Assessment Assessment: Psychosis Bipolar disorder depression schizophrenia PUD/GERD Anemia by history borderline DM ... continue accuchecks and low dose sliding scale. - Plan Plan: admit to [facility]. continue home meds. will follow accuchecks ac hs, low dose sliding scale. Nutritional Asmnt/Malnutr-PDOC - Dietary Evaluation Malnutrition Findings (Please click <Entered> for more info): Nutritional Asmnt/Malnutrition Start: 11/03/17 16: 14 Text: Status: Complete Freq: Document 11/03/17 16:14 [facility] (Rec: 11/03/17 16:19 [email or web address] [email or web address]) Nutritional Asmnt/Malnutrition Patient General Information Nutritional Screening Low Risk Diagnosis psychosis Pertinent Medical Hx/Surgical Hx PMH, PUD/GERD, HTN, anemia, depression, schizophreania Subjective Information Per records, PO intake 75-100% , meeting 100% of nutritional needs. Current Diet Order/ Nutrition Support regular Pertinent Medications colace, theragran Pertinent Labs 10/25 Na 138, K 4.3, Cl 106, BUN 19, Cr 0.7, Glucose 102, A1c 6.2, Alb 4.2 11/02 POC 223 Nutritional Hx/Data Height 1.7 m Height (Calculated Centimeters) 170.2 Current Weight (lbs) 58.967 kg Weight (Calculated Kilograms) 59.0 Weight (Calculated Grams) 93916.0 [place] Body Weight 148 % [place] Body Weight 88 Body Mass Index (BMI) 20.3 Weight Status Approriate GI Symptoms GI Symptoms None Last BM 11/01 Difficult in: None Skin Integrity/Comment: dryness Estimated Nutritional Goals BEE in Kcals: Using Current wt Calories/Kcals/Kg 25-30 Kcals Calculated 1792-1703 Protein: Using Current wt Protein g/k Protein Calculated 59 Fluid: ml 1475-1770ml (1ml/kcal) Nutritional Problem No current Nutrition Prob Problem N/A Intervention/Recommendation Comments 1. Continue with current diet as ordered. If pt has hyperglycemia, consider CCHO- 60gm diet. 2. Monitor PO intake, wt, labs and skin integrity 3. F/U as low risk in 7d ays, 2/8 Expected Outcomes/Goals Expected Outcomes/Goals 1. PO intake to meet at least 75% of nutritional needs. 2. Wt stability, skin to remain intact, labs to approach WNL.
[2017-11-06] MEDS: INSULIN ASPART SLIDING SCALE 100 UNITS/ML UNIT SUBQ SCH ×4 (07:12→21:00)
[2017-11-06] MEDS: Benztropine 1 MG TAB PO SCH (09:19)
[2017-11-06] MEDS: Multivitamin Tab PO SCH (09:19)
--- NOTE | 2017-11-06 23:26 | Progress Notes ---
DATE: 11/06/2017 SUBJECTIVE: Staff was spoken to. The patient is interviewed. Mood is noted to be irritable. Affect is constricted. Insight and judgment at this time are noted to be improving. Impulse control seems to be fair. No side effects to the medications are noted. The patient is currently on the Zyprexa and has been able to tolerate the medications. No side effects to the medications are noted and aggressive behavior has been coming under control. ASSESSMENT: The patient's psychosis is resolving. PLAN: To continue the patient with the supportive therapy and followup. JOB# [id number]
--- NOTE | 2017-11-07 08:22 | General Progress Note ---
Subjective - Review of Systems Service Date: 11/07/17 Subjective: Awake, alert, afebrile. continues to show improvement. VS T97.4 P74 R20 BP 105/61 random BS 87 Objective - Results Result Diagrams: 10/25/17 15:39 10/25/17 15:39 Recent Labs: Laboratory Last Values WBC 8.7 Th/cmm (4.8-10.8) 10/25/17 15:39 RBC 5.20 Mil/cmm (3.80-5.80) 10/25/17 15:39 Hgb 16.1 gm/dL (12-16) 10/25/17 15:39 Hct 48.5 % (41.0-60) 10/25/17 15:39 MCV 93.4 fl (80-99) 10/25/17 15:39 MCH 31.0 pg (27.0-31.0) 10/25/17 15:39 MCHC Differential 33.2 pg (28.0-36.0) 10/25/17 15:39 RDW 13.2 % (11.5-20.0) 10/25/17 15:39 Plt Count 260 Th/cmm (150-400) 10/25/17 15:39 MPV 7.6 fl 10/25/17 15:39 Neutrophils % 78.1 % (40.0-80.0) 10/25/17 15:39 Lymphocytes % 14.6 % (20.0-50.0) L 10/25/17 15:39 Monocytes % 5.9 % (2.0-10.0) 10/25/17 15:39 Eosinophils % 1.0 % (0.0-5.0) 10/25/17 15:39 Basophils % 0.4 % (0.0-2.0) 10/25/17 15:39 Sodium 138 mEq/L (136-145) 10/25/17 15:39 Potassium 4.3 mEq/L (3.5-5.1) 10/25/17 15:39 Chloride 106 mEq/L (98-107) 10/25/17 15:39 Carbon Dioxide 27.1 mEq/L (21.0-31.0) 10/25/17 15:39 Anion Gap 9.2 (7.0-16.0) 10/25/17 15:39 BUN 19 mg/dL (7-25) 10/25/17 15:39 Creatinine 0.7 mg/dL (0.7-1.3) 10/25/17 15:39 Est GFR ( Amer) > 60.0 ml/min (>90) 10/25/17 15:39 Est GFR (Non-Af Amer) > 60.0 ml/min 10/25/17 15:39 BUN/Creatinine Ratio 27.1 10/25/17 15:39 Glucose 102 mg/dL (70-105) 10/25/17 15:39 POC Glucose 102 MG/DL (70 - 105) 11/06/17 11:26 Hemoglobin A1c % 6.2 % (4.0-6.0) H 10/25/17 15:39 Calcium 8.8 mg/dL (8.6-10.3) 10/25/17 15:39 Total Bilirubin 0.5 mg/dL (0.3-1.0) 10/25/17 15:39 AST 18 U/L (13-39) 10/25/17 15:39 ALT 13 U/L (7-52) 10/25/17 15:39 Alkaline Phosphatase 54 U/L (34-104) 10/25/17 15:39 Total Protein 6.9 gm/dL (6.0-8.3) 10/25/17 15:39 Albumin 4.2 gm/dL (4.2-5.5) 10/25/17 15:39 Globulin 2.7 gm/dL 10/25/17 15:39 Albumin/Globulin Ratio 1.6 (1.0-1.8) 10/25/17 15:39 Triglycerides 126 mg/dL (<150) 10/25/17 15:39 Cholesterol 190 mg/dL (<200) 10/25/17 15:39 LDL Cholesterol Direct 116 mg/dL (75-193) 10/25/17 15:39 HDL Cholesterol 51 mg/dL (23-92) 10/25/17 15:39 TSH 1.96 uIU/ml (0.34-5.60) 10/25/17 15:39 Salicylates < 25.0 mg/L (30.0-100.0) L 10/25/17 15:39 Acetaminophen < 10.0 ug/mL (10.0-30.0) L 10/25/17 15:39 Ethyl Alcohol < 10 mg/dL (0-10) 10/25/17 15:39 RPR NONREACTIVE (NONREACTIVE) 10/25/17 15:39 - Physical Exam Vitals and I&O: Vital Signs Temp 98.8 F 11/06/17 20:19 Pulse 74 11/06/17 20:19 Resp 20 11/06/17 20:19 BP 98/58 11/06/17 20:19 Pulse Ox 96 11/06/17 20:19 Intake & Output 11/06/17 11/07/17 11/07/17 18:59 06:59 18:59 Intake Total 900 120 Balance 900 120 Intake: Oral 900 120 Other: # Voids 4 3 # Bowel Movements 1 1 Active Medications: Current Medications Acetaminophen (Tylenol) 650 mg PO Q4HR PRN PRN Reason: Mild Pain / Temp above 100 Stop: 12/24/17 21:18 Acetaminophen (Tylenol Extra Strength) 500 mg PO Q6H PRN PRN Reason: pain/ fever >101 Stop: 01/04/18 08:00 Al Hydrox/Mg Hydrox/Simethicone (Maalox) 30 ml PO Q4HR PRN PRN Reason: GI DISTRESS Stop: 12/24/17 21:18 Benztropine Mesylate (Cogentin) 1 mg PO DAILY [facility] Stop: 12/25/17 08:59 Last Admin: 11/06/17 09:19 Dose: 1 mg Docusate Sodium (Colace) 250 mg PO DAILY [facility] Stop: 12/25/17 08:59 Last Admin: 11/06/17 09:19 Dose: 250 mg Insulin Aspart (Novolog Insulin Sliding Scale) 0 units SUBQ ACHS KATEY PRN Reason: Protocol Stop: 01/03/18 11:29 Last Admin: 11/06/17 21:00 Dose: Not Given Lorazepam (Ativan) 0.5 mg PO Q4HR PRN; Protocol PRN Reason: Anxiety Stop: 11/24/17 21:18 Last Admin: 11/02/17 08:43 Dose: 0.5 mg Magnesium Hydroxide (Milk Of Magnesia) 30 ml PO HS PRN PRN Reason: Constipation Magnesium Hydroxide (Milk Of Magnesia) 30 ml PO QMON [facility] Stop: 12/30/17 08:59 Last Admin: 10/31/17 11:22 Dose: 30 ml Multivitamins/Vitamin C (Theragran) 1 tab PO DAILY [facility] Stop: 12/25/17 08:59 Last Admin: 11/06/17 09:19 Dose: 1 tab Olanzapine (Zyprexa) 2.5 mg PO BID [facility] PRN Reason: Protocol Stop: 12/29/17 16:59 Last Admin: 11/06/17 16:33 Dose: 2.5 mg Zolpidem Tartrate (Ambien) 5 mg PO HS PRN PRN Reason: Insomnia Stop: 12/24/17 21:18 Last Admin: 10/30/17 20:48 Dose: 5 mg General: Alert, No acute distress HEENT: Atraumatic, PERRLA, EOMI Neck: Supple, no JVD, no Thyromegaly Cardiovascular: Regular rate, Normal S1, Normal S2 Lungs: Clear to auscultation Abdomen: Bowel sounds Extremities: no Clubbing, no Cyanosis, no Edema - Procedures Procedures: Procedures Procedure Code Date COLONOSCOPY 45.23 06/28/11 ESOPHAGOGASTRODUODENOSCOPY [EGD] W/CLOSED BIOPSY 45.16 06/28/11 Assessment/Plan - Assessment Assessment: Psychosis Bipolar disorder depression schizophrenia PUD/GERD Anemia by history borderline DM ... continue accuchecks and low dose sliding scale. - Plan Plan: will continue current treatment. Nutritional Asmnt/Malnutr-PDOC - Dietary Evaluation Malnutrition Findings (Please click <Entered> for more info): Nutritional Asmnt/Malnutrition Start: 11/03/17 16: 14 Text: Status: Complete Freq: Document 11/03/17 16:14 [facility] (Rec: 11/03/17 16:19 [facility] [email or web address]) Nutritional Asmnt/Malnutrition Patient General Information Nutritional Screening Low Risk Diagnosis psychosis Pertinent Medical Hx/Surgical Hx PMH, PUD/GERD, HTN, anemia, depression, schizophreania Subjective Information Per records, PO intake 75-100% , meeting 100% of nutritional needs. Current Diet Order/ Nutrition Support regular Pertinent Medications colace, theragran Pertinent Labs 10/25 Na 138, K 4.3, Cl 106, BUN 19, Cr 0.7, Glucose 102, A1c 6.2, Alb 4.2 11/02 POC 223 Nutritional Hx/Data Height 1.7 m Height (Calculated Centimeters) 170.2 Current Weight (lbs) 58.967 kg Weight (Calculated Kilograms) 59.0 Weight (Calculated Grams) 34293.0 [place] Body Weight 148 % [place] Body Weight 88 Body Mass Index (BMI) 20.3 Weight Status Approriate GI Symptoms GI Symptoms None Last BM 11/01 Difficult in: None Skin Integrity/Comment: dryness Estimated Nutritional Goals BEE in Kcals: Using Current wt Calories/Kcals/Kg 25-30 Kcals Calculated 2925-4901 Protein: Using Current wt Protein g/k Protein Calculated 59 Fluid: ml 1475-1770ml (1ml/kcal) Nutritional Problem No current Nutrition Prob Problem N/A Intervention/Recommendation Comments 1. Continue with current diet as ordered. If pt has hyperglycemia, consider CCHO- 60gm diet. 2. Monitor PO intake, wt, labs and skin integrity 3. F/U as low risk in 7d ays, 2/8 Expected Outcomes/Goals Expected Outcomes/Goals 1. PO intake to meet at least 75% of nutritional needs. 2. Wt stability, skin to remain intact, labs to approach WNL.
[2017-11-07] MEDS: Multivitamin Tab PO SCH (09:44)
[2017-11-07] MEDS: Magnesium Hydroxide (MOM) 30 mL UDC PO SCH (09:44)
[2017-11-07] MEDS: Benztropine 1 MG TAB PO SCH (09:45)
[2017-11-07] MEDS: INSULIN ASPART SLIDING SCALE 100 UNITS/ML UNIT SUBQ SCH ×3 (11:27→20:27)
--- NOTE | 2017-11-08 00:57 | Progress Notes ---
DATE: 11/07/2017 PSYCHIATRIC PROGRESS NOTE Staff was spoken to. The patient is interviewed. Mood is noted to be anxious. Affect is appropriate. The patient is not suicidal or homicidal. Insight and judgment are noted to be improving. Impulse control seems to be fair. No side effects to the medications are noted. The patient has been able to participate in the groups and verbalize the concerns rather than to act out. The patient's coping skills are noted to be improving and hence it is decided possibly to discharge the patient tomorrow for followup on outpatient basis. JOB# [id number]
--- NOTE | 2017-11-08 08:27 | General Progress Note ---
Subjective - Review of Systems Service Date: 11/08/17 Subjective: Awake, alert, afebrile. continues to show improvement. VS T97.7 P62 R19 BP 167/64 random BS 87 Objective - Results Result Diagrams: 10/25/17 15:39 10/25/17 15:39 Recent Labs: Laboratory Last Values WBC 8.7 Th/cmm (4.8-10.8) 10/25/17 15:39 RBC 5.20 Mil/cmm (3.80-5.80) 10/25/17 15:39 Hgb 16.1 gm/dL (12-16) 10/25/17 15:39 Hct 48.5 % (41.0-60) 10/25/17 15:39 MCV 93.4 fl (80-99) 10/25/17 15:39 MCH 31.0 pg (27.0-31.0) 10/25/17 15:39 MCHC Differential 33.2 pg (28.0-36.0) 10/25/17 15:39 RDW 13.2 % (11.5-20.0) 10/25/17 15:39 Plt Count 260 Th/cmm (150-400) 10/25/17 15:39 MPV 7.6 fl 10/25/17 15:39 Neutrophils % 78.1 % (40.0-80.0) 10/25/17 15:39 Lymphocytes % 14.6 % (20.0-50.0) L 10/25/17 15:39 Monocytes % 5.9 % (2.0-10.0) 10/25/17 15:39 Eosinophils % 1.0 % (0.0-5.0) 10/25/17 15:39 Basophils % 0.4 % (0.0-2.0) 10/25/17 15:39 Sodium 138 mEq/L (136-145) 10/25/17 15:39 Potassium 4.3 mEq/L (3.5-5.1) 10/25/17 15:39 Chloride 106 mEq/L (98-107) 10/25/17 15:39 Carbon Dioxide 27.1 mEq/L (21.0-31.0) 10/25/17 15:39 Anion Gap 9.2 (7.0-16.0) 10/25/17 15:39 BUN 19 mg/dL (7-25) 10/25/17 15:39 Creatinine 0.7 mg/dL (0.7-1.3) 10/25/17 15:39 Est GFR ( Amer) > 60.0 ml/min (>90) 10/25/17 15:39 Est GFR (Non-Af Amer) > 60.0 ml/min 10/25/17 15:39 BUN/Creatinine Ratio 27.1 10/25/17 15:39 Glucose 102 mg/dL (70-105) 10/25/17 15:39 POC Glucose 102 MG/DL (70 - 105) 11/06/17 11:26 Hemoglobin A1c % 6.2 % (4.0-6.0) H 10/25/17 15:39 Calcium 8.8 mg/dL (8.6-10.3) 10/25/17 15:39 Total Bilirubin 0.5 mg/dL (0.3-1.0) 10/25/17 15:39 AST 18 U/L (13-39) 10/25/17 15:39 ALT 13 U/L (7-52) 10/25/17 15:39 Alkaline Phosphatase 54 U/L (34-104) 10/25/17 15:39 Total Protein 6.9 gm/dL (6.0-8.3) 10/25/17 15:39 Albumin 4.2 gm/dL (4.2-5.5) 10/25/17 15:39 Globulin 2.7 gm/dL 10/25/17 15:39 Albumin/Globulin Ratio 1.6 (1.0-1.8) 10/25/17 15:39 Triglycerides 126 mg/dL (<150) 10/25/17 15:39 Cholesterol 190 mg/dL (<200) 10/25/17 15:39 LDL Cholesterol Direct 116 mg/dL (75-193) 10/25/17 15:39 HDL Cholesterol 51 mg/dL (23-92) 10/25/17 15:39 TSH 1.96 uIU/ml (0.34-5.60) 10/25/17 15:39 Salicylates < 25.0 mg/L (30.0-100.0) L 10/25/17 15:39 Acetaminophen < 10.0 ug/mL (10.0-30.0) L 10/25/17 15:39 Ethyl Alcohol < 10 mg/dL (0-10) 10/25/17 15:39 RPR NONREACTIVE (NONREACTIVE) 10/25/17 15:39 - Physical Exam Vitals and I&O: Vital Signs Temp 97.7 F 11/08/17 07:01 Pulse 62 11/08/17 07:01 Resp 19 11/08/17 07:01 BP 164/64 11/08/17 07:01 Pulse Ox 98 11/08/17 07:01 Intake & Output 11/07/17 11/08/17 11/08/17 18:59 06:59 18:59 Intake Total 900 120 250 Balance 900 120 250 Intake: Oral 900 120 250 Other: # Voids 3 1 2 # Bowel Movements 0 Stool Characteristics Formed Formed [place] Brown Active Medications: Current Medications Acetaminophen (Tylenol) 650 mg PO Q4HR PRN PRN Reason: Mild Pain / Temp above 100 Stop: 12/24/17 21:18 Acetaminophen (Tylenol Extra Strength) 500 mg PO Q6H PRN PRN Reason: pain/ fever >101 Stop: 01/04/18 08:00 Al Hydrox/Mg Hydrox/Simethicone (Maalox) 30 ml PO Q4HR PRN PRN Reason: GI DISTRESS Stop: 12/24/17 21:18 Benztropine Mesylate (Cogentin) 1 mg PO DAILY [facility] Stop: 12/25/17 08:59 Last Admin: 11/07/17 09:45 Dose: 1 mg Docusate Sodium (Colace) 250 mg PO DAILY [facility] Stop: 12/25/17 08:59 Last Admin: 11/07/17 09:44 Dose: 250 mg Insulin Aspart (Novolog Insulin Sliding Scale) 0 units SUBQ ACHS KATEY PRN Reason: Protocol Stop: 01/03/18 11:29 Last Admin: 11/07/17 20:27 Dose: Not Given Lorazepam (Ativan) 0.5 mg PO Q4HR PRN; Protocol PRN Reason: Anxiety Stop: 11/24/17 21:18 Last Admin: 11/02/17 08:43 Dose: 0.5 mg Magnesium Hydroxide (Milk Of Magnesia) 30 ml PO HS PRN PRN Reason: Constipation Magnesium Hydroxide (Milk Of Magnesia) 30 ml PO QMON [facility] Stop: 12/30/17 08:59 Last Admin: 11/07/17 09:44 Dose: 30 ml Multivitamins/Vitamin C (Theragran) 1 tab PO DAILY [facility] Stop: 12/25/17 08:59 Last Admin: 11/07/17 09:44 Dose: 1 tab Olanzapine (Zyprexa) 2.5 mg PO BID [facility]ATE[facility] PRN Reason: Protocol Stop: 12/29/17 16:59 Last Admin: 11/07/17 16:54 Dose: 2.5 mg Zolpidem Tartrate (Ambien) 5 mg PO HS PRN PRN Reason: Insomnia Stop: 12/24/17 21:18 Last Admin: 10/30/17 20:48 Dose: 5 mg General: Alert, No acute distress HEENT: Atraumatic, PERRLA, EOMI Neck: Supple, no JVD, no Thyromegaly Cardiovascular: Regular rate, Normal S1, Normal S2 Lungs: Clear to auscultation Abdomen: Bowel sounds Extremities: no Clubbing, no Cyanosis, no Edema - Procedures Procedures: Procedures Procedure Code Date COLONOSCOPY 45.06/28/11 ESOPHAGOGASTRODUODENOSCOPY [EGD] W/CLOSED BIOPSY 45.06/28/11 Assessment/Plan - Assessment Assessment: Psychosis Bipolar disorder depression schizophrenia PUD/GERD Anemia by history borderline DM ... continue accuchecks and low dose sliding scale. - Plan Plan: will continue current treatment. Nutritional Asmnt/Malnutr-PDOC - Dietary Evaluation Malnutrition Findings (Please click <Entered> for more info): Nutritional Asmnt/Malnutrition Start: 11/03/17 16: 14 Text: Status: Complete Freq: Document 11/03/17 16:14 [facility] (Rec: 11/03/17 16:19 [facility] [email or web address]) Nutritional Asmnt/Malnutrition Patient General Information Nutritional Screening Low Risk Diagnosis psychosis Pertinent Medical Hx/Surgical Hx PMH, PUD/GERD, HTN, anemia, depression, schizophreania Subjective Information Per records, PO intake 75-100% , meeting 100% of nutritional needs. Current Diet Order/ Nutrition Support regular Pertinent Medications colace, theragran Pertinent Labs 10/25 Na 138, K 4.3, Cl 106, BUN 19, Cr 0.7, Glucose 102, A1c 6.2, Alb 4.2 11/02 POC 223 Nutritional Hx/Data Height 1.7 m Height (Calculated Centimeters) 170.2 Current Weight (lbs) 58.967 kg Weight (Calculated Kilograms) 59.0 Weight (Calculated Grams) 61808.0 [place] Body Weight 148 % [place] Body Weight 88 Body Mass Index (BMI) 20.3 Weight Status Approriate GI Symptoms GI Symptoms None Last BM 11/01 Difficult in: None Skin Integrity/Comment: dryness Estimated Nutritional Goals BEE in Kcals: Using Current wt Calories/Kcals/Kg 25-30 Kcals Calculated 0492-7910 Protein: Using Current wt Protein g/k Protein Calculated 59 Fluid: ml 1475-1770ml (1ml/kcal) Nutritional Problem No current Nutrition Prob Problem N/A Intervention/Recommendation Comments 1. Continue with current diet as ordered. If pt has hyperglycemia, consider CCHO- 60gm diet. 2. Monitor PO intake, wt, labs and skin integrity 3. F/U as low risk in 7d ays, 2/8 Expected Outcomes/Goals Expected Outcomes/Goals 1. PO intake to meet at least 75% of nutritional needs. 2. Wt stability, skin to remain intact, labs to approach WNL.
[2017-11-08] MEDS: Multivitamin Tab PO SCH (09:51)
[2017-11-08] MEDS: Benztropine 1 MG TAB PO SCH (09:51)
--- NOTE | 2017-11-08 13:29 | Progress Notes ---
DATE: 11/08/2017 PSYCHIATRIC PROGRESS NOTE SUBJECTIVE: Staff was spoken to. The patient is interviewed. Mood is noted to be irritable. Affect is constricted. Coping skills are noted to be fair. The patient has been noted to be less paranoid. No major side effects of medications are noted. The patient has been able to verbalize the concerns rather than to act out. ASSESSMENT: The patient is stabilizing. PLAN: To discharge the patient today for followup on outpatient basis. [facility]# [id number] [id number]
--- NOTE | 2017-11-12 17:02 | Discharge Summary ---
DATE OF DISCHARGE: 11/08/2017 IDENTIFYING DATA: The patient is a 66-year-old male, resident of [facility]. Information obtained by directly interviewing the patient as well as reviewing the admission papers disposition. JUSTIFICATION OF HOSPITALIZATION: The patient is admitted here on a voluntary basis in view of his acute agitation. CHIEF COMPLAINT: "I don't know." DIAGNOSES AT THE TIME OF ADMISSION: AXIS I: Psychotic disorder, not otherwise specified. 1. Dementia. AXIS II: None. AXIS III: As per Dr. Yañez. HISTORY OF PRESENT ILLNESS: Please refer to 10/26/2017 dictation done by me. Physical examination was done by Dr. Yañez and is noted to be significant for hypertension and anemia. HOSPITAL COURSE AND RESPONSE TO TREATMENT: The patient has been observed on inpatient unit, provided with supportive psychotherapy. Blood work has been reviewed by Dr. Yañez. The patient has been closely monitored. The patient has been placed on 2.5 mg of olanzapine and the patient has been encouraged to participate in groups and verbalize the concerns. The patient has been able to tolerate medications. No side effects to the medications are noted. The patient's impulsivity started to resolve and the patient was discharged on 11/08/2017, with recommendation that he is going to be seeking treatment at the [facility]. MENTAL STATUS EXAMINATION: At the time of discharge the patient noted to be anxious. Affect is appropriate. Not suicidal or homicidal. Coping skills are noted to be fair. The patient has been able to verbalize the concerns rather than to act out. DIAGNOSES AT THE TIME OF DISCHARGE: AXIS I: Psychosis, not otherwise specified. 1. Dementia. AXIS II: None. AXIS III: As per Dr. Yañez. AFTERCARE PLAN: The patient is discharged to [facility]. JOB# [id number]
== END 2017-11-08 12:30 | disposition home or self-care (01) | DRG 885 ==
LOC: ER 15:07 → GERO 16:30
PROVIDERS: ADMIT Psychiatry & Neurology Psychiatry; ATTEND Psychiatry & Neurology Psychiatry
DX: F29 Unspecified psychosis not due to a substance or known physiological condition (principal); F20.9 Schizophrenia, unspecified; F31.9 Bipolar disorder, unspecified; K21.9 Gastro-esophageal reflux disease without esophagitis; K27.9 Peptic ulcer, site unspecified, unspecified as acute or chronic, without hemorrhage or perforation; D64.9 Anemia, unspecified; R73.03 Prediabetes; Z79.899 Other long term (current) drug therapy
CPT/HCPCS: 36415-UA; 80053-TC; 80061-TC; 80320-TC; 80329-TC; 82948-90; 83036-90; 84443-TC; 85025-TC; 86592-TC; J1815; Z7610

== ENCOUNTER 2019-05-15 18:48 | Inpatient (IN) | payer MEDICARE, MEDICAID ==
--- NOTE | 2019-05-15 19:32 | ED Physician Chart ---
ED Chief Complaint/HPI - Patient Information Date Seen:: 05/15/19 Time Seen:: 19:31 Chief Complaint:: Agitation History of Present Illness:: 68 yo male was brought from [facility] to ER for evaluation of increased agitation and striking out to others. Allergies:: Allergies Allergy/AdvReac Type Severity Reaction Status Date / Time No Known Allergies Allergy Verified 10/25/17 15:28 Vitals:: Vital Signs - 8 hr 05/15/19 19:05 Temp 97.8 F HR 64 RR 16 BP 116/76 O2 Sat % 94 ED Review of Systems - Review of Systems General/Constitutional: No fever, No chills Skin: No rash Head: Other (dystonia) Eyes: No pain ENT: No nasal drainage Neck: No neck pain Cardio Vascular: No chest pain Pulmonary: No SOB GI: No nausea, No vomiting Musculoskeletal: Other (spasm) Psychiatric: Prior psych history Neurological: Weakness ED Past Medical History - Past Medical History Past Medical History: HTN, PUD/GERD, Other (Extrapyramidal symptoms, PVD, duodenal ulcer, psychosis) Social History: Non Smoker, No Alcohol, No Drug Use Psychiatricy History: Depression, Schizophrenia, Bipolar, Other (Anxiety, psychosis) Family Medical History - Family Member Mother History Unknown: Yes Ethnicity: Unknown Living Status: Unknown ED Physical Exam - Physical Examination General/Constitutional: Awake Head: Atraumatic Eyes: PERRL Skin: No skin lesions ENMT: Nasal exam nl Other Neck comments:: Neck dystonia Cardio Vascular: RRR, No murmur, gallop, rubs, NL S1 S2 GI: No tenderness/rebounding/guarding Other Extremities comments:: Spasm Other Neuro/Psych comments:: Confused ED Labs/Radiology/EKG Results - Lab Results Results: Laboratory Last Values WBC 9.0 Th/cmm (4.8-10.8) 05/15/19 19:00 RBC 5.08 Mil/cmm (3.80-5.80) 05/15/19 19:00 Hgb 15.8 gm/dL (12-16) 05/15/19 19:00 Hct 47.2 % (41.0-60) 05/15/19 19:00 MCV 93.1 fl (80-99) 05/15/19 19:00 MCH 31.0 pg (27.0-31.0) 05/15/19 19:00 MCHC Differential 33.3 pg (28.0-36.0) 05/15/19 19:00 RDW 13.1 % (11.5-20.0) 05/15/19 19:00 Plt Count 237 Th/cmm (150-400) 05/15/19 19:00 MPV 8.3 fl 05/15/19 19:00 Neutrophils % 61.0 % (40.0-80.0) 05/15/19 19: Lymphocytes % 25.3 % (20.0-50.0) 05/15/19 19: Monocytes % 9.6 % (2.0-10.0) 05/15/19: Eosinophils % 2.5 % (0.0-5.0) 05/15/19: Basophils % 1.6 % (0.0-2.0) 05/15/19 19:00 PT 10.8 SECONDS (9.5-11.5) 05/15/19: INR 1.04 (0.5-1.4) 05/15/19 19: PTT (Actin FS) 31.0 SECONDS (26.0-38.0) 05/15/19 19:00 Sodium 140 mEq/L (136-145) 05/15/19 19:00 Potassium 4.4 mEq/L (3.5-5.1) 05/15/19 19: Chloride 104 mEq/L (98-107) 05/15/19 19: Carbon Dioxide 31.1 mEq/L (21.0-31.0) H 05/15/19: Anion Gap 9.3 (7.0-16.0) 05/15/19 19: BUN 22 mg/dL (7-25) 05/15/19 19: Creatinine 0.9 mg/dL (0.7-1.3) 05/15/19 19:00 Est GFR ( Amer) > 60.0 ml/min (>90) 05/15/19 19: Est GFR (Non-Af Amer) > 60.0 ml/min 05/15/19 19:00 BUN/Creatinine Ratio 24.4 05/15/19 19: Glucose 93 mg/dL (70-105) 05/15/19 19:00 Calcium 9.1 mg/dL (8.6-10.3) 05/15/19 19:00 Total Bilirubin 0.4 mg/dL (0.3-1.0) 05/15/19 19:00 AST 15 U/L (13-39) 05/15/19 19:00 ALT 13 U/L (7-52) 05/15/19 19:00 Alkaline Phosphatase 43 U/L (34-104) 05/15/19 19:00 Troponin I < 0.01 ng/mL (0.01-0.05) L 05/15/19 19:00 B-Natriuretic Peptide 9.7 pg/mL (5.0-100.0) 05/15/19 19:00 Total Protein 6.3 gm/dL (6.0-8.3) 05/15/19 19:00 Albumin 3.8 gm/dL (4.2-5.5) L 05/15/19 19:00 Globulin 2.5 gm/dL 05/15/19: Albumin/Globulin Ratio 1.5 (1.0-1.8) 05/15/19 19: Laboratory Last Values WBC 9.0 Th/cmm (4.8-10.8) 05/15/19 19:00 RBC 5.08 Mil/cmm (3.80-5.80) 05/15/19 19:00 Hgb 15.8 gm/dL (12-16) 05/15/19 19:00 Hct 47.2 % (41.0-60) 05/15/19 19:00 MCV 93.1 fl (80-99) 05/15/19 19: MCH 31.0 pg (27.0-31.0) 05/15/19 19: MCHC Differential 33.3 pg (28.0-36.0) 05/15/19 19:00 RDW 13.1 % (11.5-20.0) 05/15/19:00 Plt Count 237 Th/cmm (150-400) 05/15/19 19:00 MPV 8.3 fl 05/15/19 19:00 Neutrophils % 61.0 % (40.0-80.0) 05/15/19 19:00 Lymphocytes % 25.3 % (20.0-50.0) 05/15/19 19:00 Monocytes % 9.6 % (2.0-10.0) 05/15/19 19: Eosinophils % 2.5 % (0.0-5.0) 05/15/19 19: Basophils % 1.6 % (0.0-2.0) 05/15/19 19:00 PT 10.8 SECONDS (9.5-11.5) 05/15/19 19:00 INR 1.04 (0.5-1.4) 05/15/19 19:00 PTT (Actin FS) 31.0 SECONDS (26.0-38.0) 05/15/19 19:00 Sodium 140 mEq/L (136-145) 05/15/19:00 Potassium 4.4 mEq/L (3.5-5.1) 05/15/19 19: Chloride 104 mEq/L (98-107) 05/15/19 19:00 Carbon Dioxide 31.1 mEq/L (21.0-31.0) H 05/15/19: Anion Gap 9.3 (7.0-16.0) 05/15/19 19:00 BUN 22 mg/dL (7-25) 05/15/19 19:00 Creatinine 0.9 mg/dL (0.7-1.3) 05/15/19 19:00 Est GFR ( Amer) > 60.0 ml/min (>90) 05/15/19 19:00 Est GFR (Non-Af Amer) > 60.0 ml/min 05/15/19: BUN/Creatinine Ratio 24.4 05/15/19: Glucose 93 mg/dL (70-105) 05/15/19 19:00 Calcium 9.1 mg/dL (8.6-10.3) 05/15/19 19:00 Total Bilirubin 0.4 mg/dL (0.3-1.0) 05/15/19 19:00 AST 15 U/L (13-39) 05/15/19 19:00 ALT 13 U/L (7-52) 05/15/19 19:00 Alkaline Phosphatase 43 U/L (34-104) 05/15/19 19:00 Troponin I < 0.01 ng/mL (0.01-0.05) L 05/15/19 19:00 B-Natriuretic Peptide 9.7 pg/mL (5.0-100.0) 05/15/19 19:00 Total Protein 6.3 gm/dL (6.0-8.3) 05/15/19 19:00 Albumin 3.8 gm/dL (4.2-5.5) L 05/15/19 19:00 Globulin 2.5 gm/dL 05/15/19 19:00 Albumin/Globulin Ratio 1.5 (1.0-1.8) 05/15/19 19:00 Triglycerides 209 mg/dL (<150) H 05/15/19 19:00 Cholesterol 189 mg/dL (<200) 05/15/19 19:00 LDL Cholesterol Direct 130 mg/dL (75-193) 05/15/19 19:00 HDL Cholesterol 36 mg/dL (23-92) 05/15/19 19:00 TSH 2.87 uIU/ml (0.34-5.60) 05/15/19 19:00 Urine Source RANDOM 05/15/19 20:25 Urine Color YELLOW 05/15/19 20:25 Urine Clarity HAZY (CLEAR) 05/15/19 20:25 Urine pH 5.5 (4.6 - 8.0) 05/15/19 20:25 Ur Specific [place] 1.025 (1.005-1.030) 05/15/19 20:25 Urine Protein NEGATIVE mg/dL (NEGATIVE) 05/15/19 20:25 Urine Glucose (UA) NEGATIVE mg/dL (NEGATIVE) 05/15/19 20:25 Urine Ketones NEGATIVE mg/dL (NEGATIVE) 05/15/19 20:25 Urine Blood NEGATIVE (NEGATIVE) 05/15/19 20:25 Urine Nitrate NEGATIVE (NEGATIVE) 05/15/19 20:25 Urine Bilirubin NEGATIVE (NEGATIVE) 05/15/19 20:25 Urine Urobilinogen 0.2 E.U./dL (0.2 - 1.0) 05/15/19 20:25 Ur Leukocyte Esterase NEGATIVE (NEGATIVE) 05/15/19 20:25 Urine RBC 0-2 /hpf (0-5) H 05/15/19 20:25 Urine WBC 2-5 /hpf (0-5) 05/15/19 20:25 Ur Epithelial Cells FEW /lpf (FEW) 05/15/19 20:25 Urine Bacteria FEW /hpf (NONE SEEN) 05/15/19 20:25 Urine Mucus FEW /lpf (FEW) 05/15/19 20:25 Urine Opiates Screen NEGATIVE (NEGATIVE) 05/15/19 20:25 Urine Methadone Screen NEGATIVE (NEGATIVE) 05/15/19 20:25 Ur Barbiturates Screen NEGATIVE (NEGATIVE) 05/15/19 20:25 Ur Tricyclics Screen NEGATIVE (NEGATIVE) 05/15/19 20:25 Ur Phencyclidine Scrn NEGATIVE (NEGATIVE) 05/15/19 20:25 Amphetamines Screen NEGATIVE (NEGATIVE) 05/15/19 20:25 U Methamphetamines Scrn NEGATIVE (NEGATIVE) 05/15/19 20:25 U Benzodiazepines Scrn NEGATIVE (NEGATIVE) 05/15/19 20:25 U Cocaine Metab Screen NEGATIVE (NEGATIVE) 05/15/19 20:25 U Cannabinoids Screen NEGATIVE (NEGATIVE) 05/15/19 20:25 - Radiology Results Results: CXR: accentuation of lower lung interstitial lung markings. No focal consolidation - EKG Interpretations EKG Time:: 19:43 Rate & Rhythm: 59 bpm, sinus rhythm [place]: normal P axis Intervals: Left anterior fascicular block ED Assessment - Assessment General Assessment: PVD GERD Duodenal ulcer Extrapyramidal symptoms Schizophrenia Bipolar disorder Anxiety Depression Psychosis Assessment/Comments:: CBC, CMP, PT/PTT, BNP, Troponin, TSH, RPR, UA, urine drug screen CXR, EKG Admit to [facility] for further evaluation and management ED Septic Shock - . Is Septic Shock (SBP<90, OR Lactate>4 mmol\L) present?: No - <6hrs of presentation: Vital Signs: Vital Signs - 8 hr 05/15/19 19:05 Temp 97.8 F HR 64 RR 16 BP 116/76 O2 Sat % 94 ED Reassessment (Disposition) - Reassessment Reassessment Condition:: Unchanged - Patient Disposition Discharge/Transfer:: [facility] w/in this hosp Admitting Medical Physician:: Edmund Yañez Admitting Psych Physician:: Roxie Park
[2019-05-15 20:04] LABS: % BASOPHILS 1.6 % (0.0-2.0); % EOSINOPHILS 2.5 % (0.0-5.0); % LYMPHOCYTES 25.3 % (20.0-50.0); % MONOCYTES 9.6 % (2.0-10.0); BASOPHILE ABSOLUTE 0.1 Th/cumm (0-0.2); EOSINOPHILE ABSOLUTE 0.2 Th/cmm (0.1-0.4); HEMATOCRIT 47.2 % (41.0-60); HEMOGLOBIN 15.8 gm/dL (12-16); LYMPHOCYTE ABSOLUTE 2.3 Th/cmm (1.5-3.0); MEAN CELL VOLUME 93.1 fl (80-99); MEAN CORPUSCULAR HGB CONC 33.3 pg (28.0-36.0); MONOCYTE ABSOLUTE 0.9 Th/cmm (0.3-1.0); NEUTROPHILE ABSOLUTE 5.5 Th/cmm (1.8-8.0); PLATELET COUNT 237 Th/cmm (150-400); RED BLOOD COUNT 5.08 Mil/cmm (3.80-5.80); RED CELL DISTRIBUTION WIDTH 13.1 % (11.5-20.0)
[2019-05-15 20:10] LABS: INR 1.04 (0.5-1.4)
[2019-05-15 20:13] LABS: ALB/GLOB RATIO 1.5 (1.0-1.8); ALBUMIN 3.8 gm/dL (4.2-5.5); ALKALINE PHOSPHATASE 43 U/L (34-104); ANION GAP 9.3 (7.0-16.0); BILIRUBIN,TOTAL 0.4 mg/dL (0.3-1.0); BUN - UREA NITROGEN 22 mg/dL (7-25); CALCIUM SERUM 9.1 mg/dL (8.6-10.3); CARBON DIOXIDE 31.1 mEq/L (21.0-31.0); CHLORIDE 104 mEq/L (98-107); CREATININE - SERUM 0.9 mg/dL (0.7-1.3); GFR AFRICAN-AMERICAN > 60.0 ml/min (>90); GFR NON AFRICAN-AMERICAN > 60.0 ml/min; GLUCOSE 93 mg/dL (70-105); POTASSIUM SERUM 4.4 mEq/L (3.5-5.1); SGOT 15 U/L (13-39); SGPT/ALT 13 U/L (7-52); SODIUM SERUM 140 mEq/L (136-145); TOTAL PROTEIN,SERUM 6.3 gm/dL (6.0-8.3)
[2019-05-15 20:32] LABS: URINE SOURCE RANDOM
[2019-05-15 20:36] LABS: URINE BILIRUBIN NEGATIVE (NEGATIVE); URINE BLOOD NEGATIVE (NEGATIVE); URINE GLUCOSE (UA) NEGATIVE (NEGATIVE); URINE KETONE NEGATIVE (NEGATIVE); URINE LEUKOCYTE ESTERASE NEGATIVE (NEGATIVE); URINE NITRATE NEGATIVE (NEGATIVE); URINE PH 5.5 (4.6 - 8.0); URINE PROTEIN NEGATIVE (NEGATIVE); URINE UROBILINOGEN 0.2 E.U./dL (0.2 - 1.0)
[2019-05-15 20:37] LABS: URINE CLARITY HAZY (CLEAR); URINE COLOR YELLOW; URINE MICROSCOPIC INDICATED? YES
[2019-05-15 20:44] LABS: URINE BACTERIA FEW /hpf (NONE SEEN); URINE EPITHELIAL CELLS FEW /lpf (FEW); URINE RBC 0-2 /hpf (0-5)
[2019-05-15 20:45] LABS: AMPHETAMINE URINE NEGATIVE (NEGATIVE); BARBITURATES URINE NEGATIVE (NEGATIVE); BENZODIAZEPINES QUAL URINE NEGATIVE (NEGATIVE); CANNABINOID THC NEGATIVE (NEGATIVE); COCAINE METABOLITE QUAL URINE NEGATIVE (NEGATIVE); METHADONE URINE NEGATIVE (NEGATIVE); METHAMPHETAMINES QUAL URINE NEGATIVE (NEGATIVE); OPIATES (MORPHINE) QUAL. URINE NEGATIVE (NEGATIVE); PHENCYCLIDINE (PCP) URINE NEGATIVE (NEGATIVE); TRICYCLICS (TCA) QUAL. URINE NEGATIVE (NEGATIVE)
[2019-05-15 22:07] VITALS: BP 119/72
[2019-05-15] MEDS ORDERED: Magnesium Hydroxide (MOM) 30 mL UDC PO PRN (22:11)
[2019-05-15] MEDS ORDERED: Maalox 30 mL Cup PO PRN (22:11)
[2019-05-15] MEDS ORDERED: Fleet Enema 135 mL RC PRN (22:21)
[2019-05-15] MEDS ORDERED: GLUCAGON HCl 1 MG KIT IM PRN (22:29)
[2019-05-15] MEDS ORDERED: Dextrose 50% 50 mL Abboject IVP PRN (22:29)
[2019-05-16] MEDS: INSULIN LISPRO SLIDING SCALE 100 UNITS/ML UNIT SUBQ SCH ×4 (06:38→21:00)
[2019-05-16 07:17] LABS: CHOLESTEROL 189 mg/dL (<200); HDL -HIGH DENSITY LIPOPROTEIN 36 mg/dL (23-92); TRIGLYCERIDES 209 mg/dL (<150)
--- NOTE | 2019-05-16 08:35 | Diagnostic Imaging Report ---
Portable chest x-ray HISTORY: Shortness of breath There is a poor inspiration. Heart size difficult to assess with portable technique in the poor inspiration. Accentuation of the lower interstitial lung markings which appears related to the poor inspiration. Allowing for this factor, no focal pulmonary processes are seen. No hilar or mediastinal abnormalities. IMPRESSION: 1. Allowing for a poor inspiration, no acute focal pulmonary processes
--- NOTE | 2019-05-16 09:38 | History and Physical ---
History of Present Illness - HPI Chief Complaint: change in behavior, increased agitation HPI: 68 y/o male who presents to [facility] for increased agitation and aggressive behavior noted at the nursing facility. Initial labwork done in the ER revealed the following ... wbc 9 H/H 15.8/ 47.2 plat 237 Na 140 K 4.4 Bun/cr 23/0.9 glu 93 UA neg UDS neg Patient [facility] and treatment. Vital Signs: Last Vital Signs Temp 0 F 05/16/19 06:38 Pulse 62 05/15/19 21:00 Resp 17 05/15/19 21:00 BP 119/72 05/15/19 22:06 Pulse Ox 95 05/15/19 21:00 Past Medical History Cardiovascular: Report: No Pertinent Hx Pulmonary: Report: No Pertinent Hx SYSTEM MANAGER: Report: No Pertinent Hx GI: Report: GERD, Peptic Ulcer Psych: Report: Depression, Psychosis, Schizophrenia Musculoskeletal: Report: No Pertinent Hx Rheumatologic: Report: No pertinent Hx Infectious Disease: Report: No Pertinent Hx Renal/: Report: No Pertinent Hx Endocrine: Report: No Pertinent Hx Dermatology: Report: No Pertinent Hx Other History: anemia, htn - Past Surgical History Past Surgical History: No pertinent Hx Family Medical History - Family Member Mother History Unknown: Yes Ethnicity: Unknown Living Status: Unknown Social History Smoke: No Alcohol: None Drugs: None Lives: Usp - Medications Home Medications: Home Medication Medication Instructions Recorded Type Acetaminophen [Tylenol Extra 500 mg PO Q6H PRN tab 11/08/17 Rx Strength] Insulin Aspart Sliding Scale See Protocol SUBQ ACHS unit 11/08/17 Rx [NovoLOG INSULIN SLIDING SCALE] Acetaminophen [Pain Relief Extra 500 mg PO Q4H PRN 05/15/19 History Strength] Acetaminophen [Pain Reliever] 650 mg PO Q4H PRN 05/15/19 History Benztropine [Cogentin*] 2 mg PO BID 05/15/19 History Bisacodyl [Dulcolax 10 Mg Supp] 1 supp RC DAILY PRN 05/15/19 History Calcium Carbonate/Vitamin D3 1 each PO DAILY 05/15/19 History [Calcium 500-Vit D3 200 Caplet] Calcium Carbonate/Vitamin D3 1 tab PO DAILY 05/15/19 History [Calcium 500-Vit D3 200 Caplet] Divalproex [Sourav CASTORENA] 250 mg PO BID 05/15/19 History Docusate Sodium [Colace] 100 mg PO DAILY 05/15/19 History Fleet Enema 135 ml RC Q2D PRN 05/15/19 History Mag Hydrox/Al Hydrox/Simeth 30 ml PO Q4H PRN 05/15/19 History [Alum-Mag Hydroxide-Simeth Liq] Magnesium Hydroxide [Milk of 30 ml PO HS 05/15/19 History Magnesia] Multivitamin-Min/Iron/FA/Vit K 1 tab PO DAILY 05/15/19 History [Multi-Day Plus Minerals Tablet] QUEtiapine Fumarate [SEROquel] 25 mg PO HS 05/15/19 History - Allergies Allergies/Adverse Reactions: Allergies Allergy/AdvReac Type Severity Reaction Status Date / Time No Known Allergies Allergy Verified 10/25/17 15:28 Review of Systems - Review of Systems Constitutional: Report: No Significant Eyes: Report: No Significant ENT: Report: No Significant Respiratory: Report: No Significant Cardiovascular: Report: No Significant Gastrointestinal: Report: No Significant Genitourinary: Report: No Significant Musculoskeletal: Report: No Significant Skin: Report: No Significant Neurological: Report: No Significant Physical Exam - Physical Exam HEENT: Report: Ears Nose Throat within normal limits, Pharnyx within normal limits Neck: Report: Within normal limits Cardiovascular Systems: Report: +s1/s2 noted, Regular, Rate and Rhythm Respiratory: Report: Breath Sounds are within normal limits, Clear to Auscultation of lung zavaleta Abdomen: Report: Non-tender to palpation Back: Report: Inspection of back is within normal limits. Extremities: Report: Non-tender to palpation. Skin: Report: Color of skin is within normal limits Neuro/Psych: Report: Mood affect is within normal limits, A+Ox3 - Lab Results All Lab Results last 24 hours: Laboratory Results - last 24 hr 05/15/19 05/15/19 05/15/19 19:00 19:00 19:00 WBC 9.0 RBC 5.08 Hgb 15.8 Hct 47.2 MCV 93.1 MCH 31.0 MCHC Differential 33.3 RDW 13.1 Plt Count 237 MPV 8.3 Neutrophils % 61.0 Lymphocytes % 25.3 Monocytes % 9.6 Eosinophils % 2.5 Basophils % 1.6 PT 10.8 INR 1.04 PTT (Actin FS) 31.0 Sodium 140 Potassium 4.4 Chloride 104 Carbon Dioxide 31.1 H Anion Gap 9.3 BUN 22 Creatinine 0.9 Est GFR ( Amer) > 60.0 Est GFR (Non-Af Amer) > 60.0 BUN/Creatinine Ratio 24.4 Glucose 93 Calcium 9.1 Total Bilirubin 0.4 AST 15 ALT 13 Alkaline Phosphatase 43 Troponin I B-Natriuretic Peptide Total Protein 6.3 Albumin 3.8 L Globulin 2.5 Albumin/Globulin Ratio 1.5 Triglycerides Cholesterol LDL Cholesterol Direct HDL Cholesterol TSH Urine Source Urine Color Urine Clarity Urine pH Ur Specific [place] Urine Protein Urine Glucose (UA) Urine Ketones Urine Blood Urine Nitrate Urine Bilirubin Urine Urobilinogen Ur Leukocyte Esterase Urine RBC Urine WBC Ur Epithelial Cells Urine Bacteria Urine Mucus Urine Opiates Screen Urine Methadone Screen Ur Barbiturates Screen Ur Tricyclics Screen Ur Phencyclidine Scrn Amphetamines Screen U Methamphetamines Scrn U Benzodiazepines Scrn U Cocaine Metab Screen U Cannabinoids Screen 05/15/19 05/15/19 05/15/19 19:00 19:00 19:00 WBC RBC Hgb Hct MCV MCH MCHC Differential RDW Plt Count MPV Neutrophils % Lymphocytes % Monocytes % Eosinophils % Basophils % PT INR PTT (Actin FS) Sodium Potassium Chloride Carbon Dioxide Anion Gap BUN Creatinine Est GFR ( Amer) Est GFR (Non-Af Amer) BUN/Creatinine Ratio Glucose Calcium Total Bilirubin AST ALT Alkaline Phosphatase Troponin I < 0.01 L B-Natriuretic Peptide 9.7 Total Protein Albumin Globulin Albumin/Globulin Ratio Triglycerides Cholesterol LDL Cholesterol Direct HDL Cholesterol TSH 2.87 Urine Source Urine Color Urine Clarity Urine pH Ur Specific [place] Urine Protein Urine Glucose (UA) Urine Ketones Urine Blood Urine Nitrate Urine Bilirubin Urine Urobilinogen Ur Leukocyte Esterase Urine RBC Urine WBC Ur Epithelial Cells Urine Bacteria Urine Mucus Urine Opiates Screen Urine Methadone Screen Ur Barbiturates Screen Ur Tricyclics Screen Ur Phencyclidine Scrn Amphetamines Screen U Methamphetamines Scrn U Benzodiazepines Scrn U Cocaine Metab Screen U Cannabinoids Screen 05/15/19 05/15/19 05/15/19 19:00 20:25 20:25 WBC RBC Hgb Hct MCV MCH MCHC Differential RDW Plt Count MPV Neutrophils % Lymphocytes % Monocytes % Eosinophils % Basophils % PT INR PTT (Actin FS) Sodium Potassium Chloride Carbon Dioxide Anion Gap BUN Creatinine Est GFR ( Amer) Est GFR (Non-Af Amer) BUN/Creatinine Ratio Glucose Calcium Total Bilirubin AST ALT Alkaline Phosphatase Troponin I B-Natriuretic Peptide Total Protein Albumin Globulin Albumin/Globulin Ratio Triglycerides 209 H Cholesterol 189 LDL Cholesterol Direct 130 HDL Cholesterol 36 TSH Urine Source RANDOM Urine Color YELLOW Urine Clarity HAZY Urine pH 5.5 Ur Specific [place] 1.025 Urine Protein NEGATIVE Urine Glucose (UA) NEGATIVE Urine Ketones NEGATIVE Urine Blood NEGATIVE Urine Nitrate NEGATIVE Urine Bilirubin NEGATIVE Urine Urobilinogen 0.2 Ur Leukocyte Esterase NEGATIVE Urine RBC 0-2 H Urine WBC 2-5 Ur Epithelial Cells FEW Urine Bacteria FEW Urine Mucus FEW Urine Opiates Screen NEGATIVE Urine Methadone Screen NEGATIVE Ur Barbiturates Screen NEGATIVE Ur Tricyclics Screen NEGATIVE Ur Phencyclidine Scrn NEGATIVE Amphetamines Screen NEGATIVE U Methamphetamines Scrn NEGATIVE U Benzodiazepines Scrn NEGATIVE U Cocaine Metab Screen NEGATIVE U Cannabinoids Screen NEGATIVE - Assessment Assessment: psychosis PUD/GERD HTN Anemia Depression Schizophrenia - Plan Plan: [facility] home meds will follow
[2019-05-16] MEDS: Benztropine 1 MG TAB PO SCH ×2 (11:13→16:57)
[2019-05-16] MEDS: Multivitamin Tab PO SCH (11:59)
[2019-05-16] MEDS: Calcium Carb/Vit D 500 mg/200 U Tab PO SCH (11:59)
--- NOTE | 2019-05-17 03:23 | Psychiatric Evaluation ---
DATE OF SERVICE: 05/15/2019 IDENTIFYING DATA: The patient is a 68-year-old male, resident of a assisted facility. Information obtained by directly interviewing the patient as well as reviewing the admission papers and they are reliable. JUSTIFICATION OF HOSPITALIZATION: The patient is admitted for his acute agitation. CHIEF COMPLAINT: The patient is looking into the space, not providing much of information. HISTORY OF PRESENT ILLNESS: This is the second psychiatric hospitalization who was hospitalized in 10/2017 under my care. The patient has been getting easily irritable, angry, and has been going ____ the staff and hence the patient has been referred over here from the assisted facility. During the evaluation, the patient is not providing much of information. The patient is reported to have been followed up by Dr. Marte on an outpatient basis. PAST PSYCHIATRIC HISTORY: Please refer to the above. MEDICAL HISTORY: Physical examination is requested by Dr. Yañez. SUBSTANCE ABUSE HISTORY: None. PHYSICAL OR SEXUAL ABUSE HISTORY: None. LEGAL PROBLEMS: None at this time. STRENGTH AND ASSETS: The patient seems to be motivated. MENTAL STATUS EXAMINATION: The patient is a 68-year-old male, looking his stated age, superficially cooperative. Eye contact is poor. Mood is noted to be irritable. Affect is constricted. Insight and judgment at this time are noted to be impaired. Impulse control is noted to be limited. The patient is actively responding to internal stimuli. The patient has paranoid delusions. The patient is alert and aware that he is in the hospital. The patient's attention span and concentration are noted to be very poor. The patient has not been able to provide much of information. The patient's behavior however is noted to be a danger to others. DIAGNOSTIC IMPRESSION: AXIS I: Schizophrenia, chronic paranoid type. AXIS II: None. AXIS III: As per Dr. Yañez. IMMEDIATE TREATMENT PLAN: The patient is going to be observed on inpatient unit, provided with supportive psychotherapy. The patient is going to be closely monitored and I encouraged to participate in the groups and verbalize the concerns. The patient is going to be continued on the Depakote, Cogentin, and then the Seroquel dose of the medications are going to be gradually increased. ESTIMATED LENGTH OF STAY: 5-7 days. DISCHARGE CRITERIA: When he no longer a threat to self or others and be able to cope up with the stress. [facility]# [id number]
[2019-05-17 07:10] LABS: A1C 5.4 % (4.8-5.6)
[2019-05-17] MEDS: INSULIN LISPRO SLIDING SCALE 100 UNITS/ML UNIT SUBQ SCH ×4 (07:57→20:29)
--- NOTE | 2019-05-17 08:07 | General Progress Note ---
Subjective - Review of Systems Service Date: 05/17/19 Subjective: Patient was seen awake, alert. VS T 97.8 P 66 R 18 BP 135/63 Objective - Results Result Diagrams: 05/15/19 19:00 05/15/19 19: Recent Labs: Laboratory Last Values WBC 9.0 Th/cmm (4.8-10.8) 05/15/19 19:00 RBC 5.08 Mil/cmm (3.80-5.80) 05/15/19 19:00 Hgb 15.8 gm/dL (12-16) 05/15/19 19:00 Hct 47.2 % (41.0-60) 05/15/19 19:00 MCV 93.1 fl (80-99) 05/15/19 19:00 MCH 31.0 pg (27.0-31.0) 05/15/19 19: MCHC Differential 33.3 pg (28.0-36.0) 05/15/19:00 RDW 13.1 % (11.5-20.0) 05/15/19: Plt Count 237 Th/cmm (150-400) 05/15/19 19:00 MPV 8.3 fl 05/15/19 19:00 Neutrophils % 61.0 % (40.0-80.0) 05/15/19 19:00 Lymphocytes % 25.3 % (20.0-50.0) 05/15/19 19:00 Monocytes % 9.6 % (2.0-10.0) 05/15/19: Eosinophils % 2.5 % (0.0-5.0) 05/15/19: Basophils % 1.6 % (0.0-2.0) 05/15/19 19:00 PT 10.8 SECONDS (9.5-11.5) 05/15/19 19:00 INR 1.04 (0.5-1.4) 05/15/19 19:00 PTT (Actin FS) 31.0 SECONDS (26.0-38.0) 05/15/19 19:00 Sodium 140 mEq/L (136-145) 05/15/19 19:00 Potassium 4.4 mEq/L (3.5-5.1) 05/15/19 19:00 Chloride 104 mEq/L (98-107) 05/15/19 19:00 Carbon Dioxide 31.1 mEq/L (21.0-31.0) H 05/15/19 19:00 Anion Gap 9.3 (7.0-16.0) 05/15/19 19:00 BUN 22 mg/dL (7-25) 05/15/19 19:00 Creatinine 0.9 mg/dL (0.7-1.3) 05/15/19 19:00 Est GFR ( Amer) > 60.0 ml/min (>90) 05/15/19 19:00 Est GFR (Non-Af Amer) > 60.0 ml/min 05/15/19 19:00 BUN/Creatinine Ratio 24.4 05/15/19 19:00 Glucose 93 mg/dL (70-105) 05/15/19 19:00 Calcium 9.1 mg/dL (8.6-10.3) 05/15/19 19:00 Total Bilirubin 0.4 mg/dL (0.3-1.0) 05/15/19 19:00 AST 15 U/L (13-39) 05/15/19 19:00 ALT 13 U/L (7-52) 05/15/19 19:00 Alkaline Phosphatase 43 U/L (34-104) 05/15/19 19:00 Troponin I < 0.01 ng/mL (0.01-0.05) L 05/15/19 19:00 B-Natriuretic Peptide 9.7 pg/mL (5.0-100.0) 05/15/19 19:00 Total Protein 6.3 gm/dL (6.0-8.3) 05/15/19 19:00 Albumin 3.8 gm/dL (4.2-5.5) L 05/15/19 19:00 Globulin 2.5 gm/dL 05/15/19 19:00 Albumin/Globulin Ratio 1.5 (1.0-1.8) 05/15/19 19:00 Triglycerides 209 mg/dL (<150) H 05/15/19 19:00 Cholesterol 189 mg/dL (<200) 05/15/19 19:00 LDL Cholesterol Direct 130 mg/dL (75-193) 05/15/19 19:00 HDL Cholesterol 36 mg/dL (23-92) 05/15/19 19:00 TSH 2.87 uIU/ml (0.34-5.60) 05/15/19 19:00 Urine Source RANDOM 05/15/19 20:25 Urine Color YELLOW 05/15/19 20:25 Urine Clarity HAZY (CLEAR) 05/15/19 20:25 Urine pH 5.5 (4.6 - 8.0) 05/15/19 20:25 Ur Specific [place] 1.025 (1.005-1.030) 05/15/19 20:25 Urine Protein NEGATIVE mg/dL (NEGATIVE) 05/15/19 20:25 Urine Glucose (UA) NEGATIVE mg/dL (NEGATIVE) 05/15/19 20:25 Urine Ketones NEGATIVE mg/dL (NEGATIVE) 05/15/19 20:25 Urine Blood NEGATIVE (NEGATIVE) 05/15/19 20:25 Urine Nitrate NEGATIVE (NEGATIVE) 05/15/19 20:25 Urine Bilirubin NEGATIVE (NEGATIVE) 05/15/19 20:25 Urine Urobilinogen 0.2 E.U./dL (0.2 - 1.0) 05/15/19 20:25 Ur Leukocyte Esterase NEGATIVE (NEGATIVE) 05/15/19 20:25 Urine RBC 0-2 /hpf (0-5) H 05/15/19 20:25 Urine WBC 2-5 /hpf (0-5) 05/15/19 20:25 Ur Epithelial Cells FEW /lpf (FEW) 05/15/19 20:25 Urine Bacteria FEW /hpf (NONE SEEN) 05/15/19 20:25 Urine Mucus FEW /lpf (FEW) 05/15/19 20:25 Urine Opiates Screen NEGATIVE (NEGATIVE) 05/15/19 20:25 Urine Methadone Screen NEGATIVE (NEGATIVE) 05/15/19 20:25 Ur Barbiturates Screen NEGATIVE (NEGATIVE) 05/15/19 20:25 Ur Tricyclics Screen NEGATIVE (NEGATIVE) 05/15/19 20:25 Ur Phencyclidine Scrn NEGATIVE (NEGATIVE) 05/15/19 20:25 Amphetamines Screen NEGATIVE (NEGATIVE) 05/15/19 20:25 U Methamphetamines Scrn NEGATIVE (NEGATIVE) 05/15/19 20:25 U Benzodiazepines Scrn NEGATIVE (NEGATIVE) 05/15/19 20:25 U Cocaine Metab Screen NEGATIVE (NEGATIVE) 05/15/19 20:25 U Cannabinoids Screen NEGATIVE (NEGATIVE) 05/15/19 20:25 - Physical Exam Vitals and I&O: Vital Signs Temp 97.8 F 05/16/19 21:11 Pulse 66 05/16/19 21:11 Resp 18 05/16/19 21:11 BP 135/63 05/16/19 21:11 Pulse Ox 98 05/16/19 21:11 Intake & Output 05/16/19 05/17/19 05/17/19 18:59 06:59 18:59 Intake Total 120 Balance 120 Intake: Oral 120 Other: # Voids 2 2 # Bowel Movements 0 0 Active Medications: Current Medications Acetaminophen (Tylenol) 650 mg PO Q4HR PRN PRN Reason: Mild Pain / Temp above 100 Stop: 07/14/19 22:10 Al Hydrox/Mg Hydrox/Simethicone (Maalox) 30 ml PO Q4HR PRN PRN Reason: GI DISTRESS Stop: 07/14/19 22:10 Benztropine Mesylate (Cogentin) 2 mg PO BID [facility] Stop: 07/15/19 08:59 Last Admin: 05/16/19 16:57 Dose: 2 mg Bisacodyl (Dulcolax 10 Mg Supp) 10 mg RC DAILY PRN PRN Reason: Constipation Stop: 07/14/19 22:20 Calcium/Vitamin D (Oscal W/Vitamin D) 1 tab PO DAILY [facility] Stop: 07/15/19 08:59 Last Admin: 05/16/19 11:59 Dose: 1 tab Dextrose (D50w) 50 ml IVP PRN PRN PRN Reason: Blood Glucose less than 70 Stop: 07/14/19 22:28 Dextrose (Glutose 40%) 18.75 gm PO PRN PRN PRN Reason: Blood Glucose less than 70 Stop: 07/14/19 22:28 Divalproex Sodium (Depakote Dr) 250 mg PO BID [facility]; Protocol Stop: 07/15/19 08:59 Last Admin: 05/16/19 19:00 Dose: Not Given Docusate Sodium (Colace) 100 mg PO DAILY [facility] Stop: 07/15/19 08:59 Last Admin: 05/16/19 11:59 Dose: 100 mg Glucagon (Glucagen) 1 mg IM PRN PRN PRN Reason: Blood Glucose less than 70 Stop: 07/14/19 22:28 Insulin Human Lispro (Humalog Insulin Sliding Scale) 0 units SUBQ ACHS [facility]; Protocol Stop: 07/15/19 07:29 Last Admin: 05/17/19 07:57 Dose: Not Given Lorazepam (Ativan) 0.5 mg PO Q4HR PRN; Protocol PRN Reason: Agitation Stop: 06/14/19 21:09 Magnesium Hydroxide (Milk Of Magnesia) 30 ml PO HS PRN PRN Reason: Constipation Multivitamins/Vitamin C (Theragran) 1 tab PO DAILY [facility] Stop: 07/15/19 08:59 Last Admin: 05/16/19 11:59 Dose: 1 tab Quetiapine Fumarate (Seroquel) 25 mg PO HS [facility]; Protocol Stop: 07/15/19 20:59 Last Admin: 05/16/19 20:58 Dose: 25 mg Sodium Phosphate (Fleet Enema) 135 ml RC Q2D PRN PRN Reason: Constipation Stop: 07/14/19 22:20 Zolpidem Tartrate (Ambien) 5 mg PO HS PRN PRN Reason: Insomnia Stop: 07/14/19 22:10 Last Admin: 05/16/19 20:58 Dose: 5 mg General: Alert, Oriented x3, No acute distress HEENT: Atraumatic, PERRLA, EOMI Neck: Supple Cardiovascular: Regular rate, Normal S1, Normal S2 Lungs: Clear to auscultation Abdomen: Bowel sounds, Soft Extremities: no Clubbing, no Cyanosis, no Edema Neurological: Normal gait - Procedures Procedures: Procedures Procedure Code Date COLONOSCOPY 45.23 06/28/11 ESOPHAGOGASTRODUODENOSCOPY [EGD] W/CLOSED BIOPSY 45.16 06/28/11 Assessment/Plan - Assessment Assessment: psychosis PUD/GERD HTN Anemia Depression Schizophrenia - Plan Plan: will admit to [facility] continue home meds will follow
[2019-05-17] MEDS: Multivitamin Tab PO SCH (08:28)
[2019-05-17] MEDS: Benztropine 1 MG TAB PO SCH ×2 (08:28→16:11)
[2019-05-17] MEDS: Calcium Carb/Vit D 500 mg/200 U Tab PO SCH (08:28)
--- NOTE | 2019-05-18 04:26 | Progress Notes ---
DATE: 05/17/2019 SUBJECTIVE: Staff was spoken to. The patient is interviewed. Mood is noted to be irritable. Affect is constricted. The patient's insight and judgment are noted to be very much impaired. Impulse control is noted to be limited. The patient has been very disruptive and the patient has been masturbating in the area. The patient has no insight into his illness. The patient's coping skills are noted to be very poor. ASSESSMENT: The patient is grossly psychotic and impulsive. PLAN: To increase the dose of the Seroquel to 25 mg twice a day and follow the patient up with the supportive therapy. The patient is still responding to internal stimuli and is not making much sense. [facility]# [id number]
[2019-05-18] MEDS: INSULIN LISPRO SLIDING SCALE 100 UNITS/ML UNIT SUBQ SCH ×4 (06:55→21:25)
--- NOTE | 2019-05-18 08:01 | General Progress Note ---
Subjective - Review of Systems Service Date: 05/18/19 Subjective: Patient was seen awake, alert. VS T 98.8 P 94 R 20 BP 149/102 Objective - Results Result Diagrams: 05/15/19 19:00 05/15/19 19: Recent Labs: Laboratory Last Values WBC 9.0 Th/cmm (4.8-10.8) 05/15/19 19:00 RBC 5.08 Mil/cmm (3.80-5.80) 05/15/19 19:00 Hgb 15.8 gm/dL (12-16) 05/15/19 19:00 Hct 47.2 % (41.0-60) 05/15/19 19:00 MCV 93.1 fl (80-99) 05/15/19 19:00 MCH 31.0 pg (27.0-31.0) 05/15/19 19: MCHC Differential 33.3 pg (28.0-36.0) 05/15/19:00 RDW 13.1 % (11.5-20.0) 05/15/19: Plt Count 237 Th/cmm (150-400) 05/15/19 19:00 MPV 8.3 fl 05/15/19 19:00 Neutrophils % 61.0 % (40.0-80.0) 05/15/19 19:00 Lymphocytes % 25.3 % (20.0-50.0) 05/15/19 19:00 Monocytes % 9.6 % (2.0-10.0) 05/15/19:00 Eosinophils % 2.5 % (0.0-5.0) 05/15/19: Basophils % 1.6 % (0.0-2.0) 05/15/19 19:00 PT 10.8 SECONDS (9.5-11.5) 05/15/19 19:00 INR 1.04 (0.5-1.4) 05/15/19 19:00 PTT (Actin FS) 31.0 SECONDS (26.0-38.0) 05/15/19 19:00 Sodium 140 mEq/L (136-145) 05/15/19 19:00 Potassium 4.4 mEq/L (3.5-5.1) 05/15/19 19:00 Chloride 104 mEq/L (98-107) 05/15/19 19:00 Carbon Dioxide 31.1 mEq/L (21.0-31.0) H 05/15/19 19:00 Anion Gap 9.3 (7.0-16.0) 05/15/19 19:00 BUN 22 mg/dL (7-25) 05/15/19 19:00 Creatinine 0.9 mg/dL (0.7-1.3) 05/15/19 19:00 Est GFR ( Amer) > 60.0 ml/min (>90) 05/15/19 19:00 Est GFR (Non-Af Amer) > 60.0 ml/min 05/15/19 19:00 BUN/Creatinine Ratio 24.4 05/15/19 19:00 Glucose 93 mg/dL (70-105) 05/15/19 19:00 POC Glucose 119 MG/DL (70 - 105) H 05/17/19 20:08 Calcium 9.1 mg/dL (8.6-10.3) 05/15/19 19:00 Total Bilirubin 0.4 mg/dL (0.3-1.0) 05/15/19 19:00 AST 15 U/L (13-39) 05/15/19 19:00 ALT 13 U/L (7-52) 05/15/19 19:00 Alkaline Phosphatase 43 U/L (34-104) 05/15/19 19:00 Troponin I < 0.01 ng/mL (0.01-0.05) L 05/15/19 19:00 B-Natriuretic Peptide 9.7 pg/mL (5.0-100.0) 05/15/19 19:00 Total Protein 6.3 gm/dL (6.0-8.3) 05/15/19 19:00 Albumin 3.8 gm/dL (4.2-5.5) L 05/15/19 19:00 Globulin 2.5 gm/dL 05/15/19 19:00 Albumin/Globulin Ratio 1.5 (1.0-1.8) 05/15/19 19:00 Triglycerides 209 mg/dL (<150) H 05/15/19 19:00 Cholesterol 189 mg/dL (<200) 05/15/19 19:00 LDL Cholesterol Direct 130 mg/dL (75-193) 05/15/19 19:00 HDL Cholesterol 36 mg/dL (23-92) 05/15/19 19:00 TSH 2.87 uIU/ml (0.34-5.60) 05/15/19 19:00 Urine Source RANDOM 05/15/19 20:25 Urine Color YELLOW 05/15/19 20:25 Urine Clarity HAZY (CLEAR) 05/15/19 20:25 Urine pH 5.5 (4.6 - 8.0) 05/15/19 20:25 Ur Specific [place] 1.025 (1.005-1.030) 05/15/19 20:25 Urine Protein NEGATIVE mg/dL (NEGATIVE) 05/15/19 20:25 Urine Glucose (UA) NEGATIVE mg/dL (NEGATIVE) 05/15/19 20:25 Urine Ketones NEGATIVE mg/dL (NEGATIVE) 05/15/19 20:25 Urine Blood NEGATIVE (NEGATIVE) 05/15/19 20:25 Urine Nitrate NEGATIVE (NEGATIVE) 05/15/19 20:25 Urine Bilirubin NEGATIVE (NEGATIVE) 05/15/19 20:25 Urine Urobilinogen 0.2 E.U./dL (0.2 - 1.0) 05/15/19 20:25 Ur Leukocyte Esterase NEGATIVE (NEGATIVE) 05/15/19 20:25 Urine RBC 0-2 /hpf (0-5) H 05/15/19 20:25 Urine WBC 2-5 /hpf (0-5) 05/15/19 20:25 Ur Epithelial Cells FEW /lpf (FEW) 05/15/19 20:25 Urine Bacteria FEW /hpf (NONE SEEN) 05/15/19 20:25 Urine Mucus FEW /lpf (FEW) 05/15/19 20:25 Urine Opiates Screen NEGATIVE (NEGATIVE) 05/15/19 20:25 Urine Methadone Screen NEGATIVE (NEGATIVE) 05/15/19 20:25 Ur Barbiturates Screen NEGATIVE (NEGATIVE) 05/15/19 20:25 Ur Tricyclics Screen NEGATIVE (NEGATIVE) 05/15/19 20:25 Ur Phencyclidine Scrn NEGATIVE (NEGATIVE) 05/15/19 20:25 Amphetamines Screen NEGATIVE (NEGATIVE) 05/15/19 20:25 U Methamphetamines Scrn NEGATIVE (NEGATIVE) 05/15/19 20:25 U Benzodiazepines Scrn NEGATIVE (NEGATIVE) 05/15/19 20:25 U Cocaine Metab Screen NEGATIVE (NEGATIVE) 05/15/19 20:25 U Cannabinoids Screen NEGATIVE (NEGATIVE) 05/15/19 20:25 RPR NONREACTIVE (NONREACTIVE) 05/15/19 19:00 - Physical Exam Vitals and I&O: Vital Signs Temp 98.8 F 05/17/19 14:00 Pulse 94 05/17/19 14:00 Resp 20 05/17/19 14:00 BP 149/102 05/17/19 14:00 Pulse Ox 98 05/17/19 14:00 Intake & Output 05/17/19 05/18/19 05/18/19 18:59 06:59 18:59 Intake Total 960 120 Balance 960 120 Intake: Oral 960 120 Other: # Voids 4 3 # Bowel Movements 1 Active Medications: Current Medications Acetaminophen (Tylenol) 650 mg PO Q4HR PRN PRN Reason: Mild Pain / Temp above 100 Stop: 07/14/19 22:10 Al Hydrox/Mg Hydrox/Simethicone (Maalox) 30 ml PO Q4HR PRN PRN Reason: GI DISTRESS Stop: 07/14/19 22:10 Benztropine Mesylate (Cogentin) 2 mg PO BID [facility] Stop: 07/15/19 08:59 Last Admin: 05/17/19 16:11 Dose: 2 mg Bisacodyl (Dulcolax 10 Mg Supp) 10 mg RC DAILY PRN PRN Reason: Constipation Stop: 07/14/19 22:20 Calcium/Vitamin D (Oscal W/Vitamin D) 1 tab PO DAILY [facility] Stop: 07/15/19 08:59 Last Admin: 05/17/19 08:28 Dose: 1 tab Dextrose (D50w) 50 ml IVP PRN PRN PRN Reason: Blood Glucose less than 70 Stop: 07/14/19 22:28 Dextrose (Glutose 40%) 18.75 gm PO PRN PRN PRN Reason: Blood Glucose less than 70 Stop: 07/14/19 22:28 Divalproex Sodium (Depakote Dr) 250 mg PO BID [facility]; Protocol Stop: 07/15/19 08:59 Last Admin: 05/17/19 16:11 Dose: 250 mg Docusate Sodium (Colace) 100 mg PO DAILY [facility] Stop: 07/15/19 08:59 Last Admin: 08/15/19 08:28 Dose: 100 mg Glucagon (Glucagen) 1 mg IM PRN PRN PRN Reason: Blood Glucose less than 70 Stop: 07/14/19 22:28 Insulin Human Lispro (Humalog Insulin Sliding Scale) 0 units SUBQ ACHS [facility]; Protocol Stop: 07/15/19 07:29 Last Admin: 05/18/19 06:55 Dose: Not Given Lorazepam (Ativan) 0.5 mg PO Q4HR PRN; Protocol PRN Reason: Agitation Stop: 06/14/19 21:09 Magnesium Hydroxide (Milk Of Magnesia) 30 ml PO HS PRN PRN Reason: Constipation Multivitamins/Vitamin C (Theragran) 1 tab PO DAILY [facility] Stop: 07/15/19 08:59 Last Admin: 05/17/19 08:28 Dose: 1 tab Quetiapine Fumarate (Seroquel) 25 mg PO BID [facility]; Protocol Stop: 07/17/19 08:59 Sodium Phosphate (Fleet Enema) 135 ml RC Q2D PRN PRN Reason: Constipation Stop: 07/14/19 22:20 Zolpidem Tartrate (Ambien) 5 mg PO HS PRN PRN Reason: Insomnia Stop: 07/14/19 22:10 Last Admin: 05/17/19 21:05 Dose: 5 mg General: Alert, Oriented x3, No acute distress HEENT: Atraumatic, PERRLA, EOMI Neck: Supple Cardiovascular: Regular rate, Normal S1, Normal S2 Lungs: Clear to auscultation Abdomen: Bowel sounds, Soft Extremities: no Clubbing, no Cyanosis, no Edema Neurological: Normal gait - Procedures Procedures: Procedures Procedure Code Date COLONOSCOPY 45.23 06/28/11 ESOPHAGOGASTRODUODENOSCOPY [EGD] W/CLOSED BIOPSY 45.16 06/28/11 Assessment/Plan - Assessment Assessment: psychosis PUD/GERD HTN elevated Anemia Depression Schizophrenia - Plan Plan: BP slightly elevated will add clonidine PRN
[2019-05-18] MEDS: Benztropine 1 MG TAB PO SCH ×2 (09:09→16:48)
[2019-05-18] MEDS: Calcium Carb/Vit D 500 mg/200 U Tab PO SCH (09:10)
[2019-05-18] MEDS: Multivitamin Tab PO SCH (09:10)
--- NOTE | 2019-05-19 04:18 | Progress Notes ---
DATE: 05/18/2019 SUBJECTIVE: Staff was spoken to. The patient is interviewed. Mood is noted to be irritable. Affect is constricted. Insight and judgment at this time are noted to be still impaired. Impulse control is noted to be limited. The patient has been very disruptive and has been displaying aggressive behavior. The patient has been masturbating and needs to be redirected. Coping skills are noted to be extremely poor. The patient is actively responding to internal stimuli. ASSESSMENT: The patient is still psychotic and impulsive. PLAN: To continue the patient with the current medications. I encouraged the patient to verbalize the concerns rather than to act out. The patient is currently on ____ acid and Seroquel. Plan to continue these things and make sure the patient is compliant with medications and followup. JOB# [id number]
[2019-05-19] MEDS: INSULIN LISPRO SLIDING SCALE 100 UNITS/ML UNIT SUBQ SCH ×4 (06:37→20:11)
--- NOTE | 2019-05-19 08:14 | General Progress Note ---
Subjective - Review of Systems Service Date: 05/19/19 Subjective: Patient was seen awake, alert. VS T 97.3 P 53 R 20 BP 103/60 Objective - Results Result Diagrams: 05/15/19 19:00 05/15/19 19: Recent Labs: Laboratory Last Values WBC 9.0 Th/cmm (4.8-10.8) 05/15/19 19:00 RBC 5.08 Mil/cmm (3.80-5.80) 05/15/19 19:00 Hgb 15.8 gm/dL (12-16) 05/15/19 19:00 Hct 47.2 % (41.0-60) 05/15/19 19:00 MCV 93.1 fl (80-99) 05/15/19 19:00 MCH 31.0 pg (27.0-31.0) 05/15/19 19: MCHC Differential 33.3 pg (28.0-36.0) 05/15/19:00 RDW 13.1 % (11.5-20.0) 05/15/19: Plt Count 237 Th/cmm (150-400) 05/15/19 19:00 MPV 8.3 fl 05/15/19 19:00 Neutrophils % 61.0 % (40.0-80.0) 05/15/19 19:00 Lymphocytes % 25.3 % (20.0-50.0) 05/15/19 19:00 Monocytes % 9.6 % (2.0-10.0) 05/15/19: Eosinophils % 2.5 % (0.0-5.0) 05/15/19: Basophils % 1.6 % (0.0-2.0) 05/15/19 19:00 PT 10.8 SECONDS (9.5-11.5) 05/15/19 19:00 INR 1.04 (0.5-1.4) 05/15/19 19:00 PTT (Actin FS) 31.0 SECONDS (26.0-38.0) 05/15/19 19:00 Sodium 140 mEq/L (136-145) 05/15/19 19:00 Potassium 4.4 mEq/L (3.5-5.1) 05/15/19 19:00 Chloride 104 mEq/L (98-107) 05/15/19 19:00 Carbon Dioxide 31.1 mEq/L (21.0-31.0) H 05/15/19 19:00 Anion Gap 9.3 (7.0-16.0) 05/15/19 19:00 BUN 22 mg/dL (7-25) 05/15/19 19:00 Creatinine 0.9 mg/dL (0.7-1.3) 05/15/19 19:00 Est GFR ( Amer) > 60.0 ml/min (>90) 05/15/19 19:00 Est GFR (Non-Af Amer) > 60.0 ml/min 05/15/19 19:00 BUN/Creatinine Ratio 24.4 05/15/19 19:00 Glucose 93 mg/dL (70-105) 05/15/19 19:00 POC Glucose 118 MG/DL (70 - 105) H 05/18/19 20:04 Calcium 9.1 mg/dL (8.6-10.3) 05/15/19 19:00 Total Bilirubin 0.4 mg/dL (0.3-1.0) 05/15/19 19:00 AST 15 U/L (13-39) 05/15/19 19:00 ALT 13 U/L (7-52) 05/15/19 19:00 Alkaline Phosphatase 43 U/L (34-104) 05/15/19 19:00 Troponin I < 0.01 ng/mL (0.01-0.05) L 05/15/19 19:00 B-Natriuretic Peptide 9.7 pg/mL (5.0-100.0) 05/15/19 19:00 Total Protein 6.3 gm/dL (6.0-8.3) 05/15/19 19:00 Albumin 3.8 gm/dL (4.2-5.5) L 05/15/19 19:00 Globulin 2.5 gm/dL 05/15/19 19:00 Albumin/Globulin Ratio 1.5 (1.0-1.8) 05/15/19 19:00 Triglycerides 209 mg/dL (<150) H 05/15/19 19:00 Cholesterol 189 mg/dL (<200) 05/15/19 19:00 LDL Cholesterol Direct 130 mg/dL (75-193) 05/15/19 19:00 HDL Cholesterol 36 mg/dL (23-92) 05/15/19 19:00 TSH 2.87 uIU/ml (0.34-5.60) 05/15/19 19:00 Urine Source RANDOM 05/15/19 20:25 Urine Color YELLOW 05/15/19 20:25 Urine Clarity HAZY (CLEAR) 05/15/19 20:25 Urine pH 5.5 (4.6 - 8.0) 05/15/19 20:25 Ur Specific [place] 1.025 (1.005-1.030) 05/15/19 20:25 Urine Protein NEGATIVE mg/dL (NEGATIVE) 05/15/19 20:25 Urine Glucose (UA) NEGATIVE mg/dL (NEGATIVE) 05/15/19 20:25 Urine Ketones NEGATIVE mg/dL (NEGATIVE) 05/15/19 20:25 Urine Blood NEGATIVE (NEGATIVE) 05/15/19 20:25 Urine Nitrate NEGATIVE (NEGATIVE) 05/15/19 20:25 Urine Bilirubin NEGATIVE (NEGATIVE) 05/15/19 20:25 Urine Urobilinogen 0.2 E.U./dL (0.2 - 1.0) 05/15/19 20:25 Ur Leukocyte Esterase NEGATIVE (NEGATIVE) 05/15/19 20:25 Urine RBC 0-2 /hpf (0-5) H 05/15/19 20:25 Urine WBC 2-5 /hpf (0-5) 05/15/19 20:25 Ur Epithelial Cells FEW /lpf (FEW) 05/15/19 20:25 Urine Bacteria FEW /hpf (NONE SEEN) 05/15/19 20:25 Urine Mucus FEW /lpf (FEW) 05/15/19 20:25 Urine Opiates Screen NEGATIVE (NEGATIVE) 05/15/19 20:25 Urine Methadone Screen NEGATIVE (NEGATIVE) 05/15/19 20:25 Ur Barbiturates Screen NEGATIVE (NEGATIVE) 05/15/19 20:25 Ur Tricyclics Screen NEGATIVE (NEGATIVE) 05/15/19 20:25 Ur Phencyclidine Scrn NEGATIVE (NEGATIVE) 05/15/19 20:25 Amphetamines Screen NEGATIVE (NEGATIVE) 05/15/19 20:25 U Methamphetamines Scrn NEGATIVE (NEGATIVE) 05/15/19 20:25 U Benzodiazepines Scrn NEGATIVE (NEGATIVE) 05/15/19 20:25 U Cocaine Metab Screen NEGATIVE (NEGATIVE) 05/15/19 20:25 U Cannabinoids Screen NEGATIVE (NEGATIVE) 05/15/19 20:25 RPR NONREACTIVE (NONREACTIVE) 05/15/19 19:00 - Physical Exam Vitals and I&O: Vital Signs Temp 97.3 F 05/19/19 06:32 Pulse 53 05/19/19 06:32 Resp 20 05/19/19 06:32 BP 103/60 05/19/19 06:32 Pulse Ox 97 05/19/19 06:32 Intake & Output 05/18/19 05/19/19 05/19/19 18:59 06:59 18:59 Intake Total 1140 1200 Balance 1140 1200 Intake: Oral 680 1200 Other 460 Other: # Voids 3 3 # Bowel Movements 0 Active Medications: Current Medications Acetaminophen (Tylenol) 650 mg PO Q4HR PRN PRN Reason: Mild Pain / Temp above 100 Stop: 07/14/19 22:10 Al Hydrox/Mg Hydrox/Simethicone (Maalox) 30 ml PO Q4HR PRN PRN Reason: GI DISTRESS Stop: 07/14/19 22:10 Benztropine Mesylate (Cogentin) 2 mg PO BID [facility] Stop: 07/15/19 08:59 Last Admin: 05/18/19 16:48 Dose: 2 mg Bisacodyl (Dulcolax 10 Mg Supp) 10 mg RC DAILY PRN PRN Reason: Constipation Stop: 07/14/19 22:20 Calcium/Vitamin D (Oscal W/Vitamin D) 1 tab PO DAILY [facility] Stop: 07/15/19 08:59 Last Admin: 05/18/19 09:10 Dose: 1 tab Dextrose (D50w) 50 ml IVP PRN PRN PRN Reason: Blood Glucose less than 70 Stop: 07/14/19 22:28 Dextrose (Glutose 40%) 18.75 gm PO PRN PRN PRN Reason: Blood Glucose less than 70 Stop: 07/14/19 22:28 Divalproex Sodium (Depakote Dr) 250 mg PO BID [facility]; Protocol Stop: 07/15/19 08:59 Last Admin: 05/18/19 16:48 Dose: 250 mg Docusate Sodium (Colace) 100 mg PO DAILY [facility] Stop: 07/15/19 08:59 Last Admin: 05/18/19 09:11 Dose: 100 mg Glucagon (Glucagen) 1 mg IM PRN PRN PRN Reason: Blood Glucose less than 70 Stop: 07/14/19 22:28 Insulin Human Lispro (Humalog Insulin Sliding Scale) 0 units SUBQ ACHS [facility]; Protocol Stop: 07/15/19 07:29 Last Admin: 05/19/19 06:37 Dose: Not Given Lorazepam (Ativan) 0.5 mg PO Q4HR PRN; Protocol PRN Reason: Agitation Stop: 06/14/19 21:09 Magnesium Hydroxide (Milk Of Magnesia) 30 ml PO HS PRN PRN Reason: Constipation Multivitamins/Vitamin C (Theragran) 1 tab PO DAILY [facility] Stop: 07/15/19 08:59 Last Admin: 05/18/19 09:10 Dose: 1 tab Quetiapine Fumarate (Seroquel) 25 mg PO BID [facility]; Protocol Stop: 07/17/19 08:59 Last Admin: 05/18/19 16:48 Dose: 25 mg Sodium Phosphate (Fleet Enema) 135 ml RC Q2D PRN PRN Reason: Constipation Stop: 07/14/19 22:20 Zolpidem Tartrate (Ambien) 5 mg PO HS PRN PRN Reason: Insomnia Stop: 07/14/19 22:10 Last Admin: 05/18/19 23:34 Dose: 5 mg General: Alert, Oriented x3, No acute distress HEENT: Atraumatic, PERRLA, EOMI Neck: Supple Cardiovascular: Regular rate, Normal S1, Normal S2 Lungs: Clear to auscultation Abdomen: Bowel sounds, Soft Extremities: no Clubbing, no Cyanosis, no Edema Neurological: Normal gait - Procedures Procedures: Procedures Procedure Code Date COLONOSCOPY 45.23 06/28/11 ESOPHAGOGASTRODUODENOSCOPY [EGD] W/CLOSED BIOPSY 45.16 06/28/11 Assessment/Plan - Assessment Assessment: psychosis PUD/GERD HTN improved Anemia Depression Schizophrenia - Plan Plan: BP slightly elevated will add clonidine PRN
[2019-05-19] MEDS: Calcium Carb/Vit D 500 mg/200 U Tab PO SCH (08:23)
[2019-05-19] MEDS: Multivitamin Tab PO SCH (08:23)
[2019-05-19] MEDS: Benztropine 1 MG TAB PO SCH ×2 (08:23→16:23)
--- NOTE | 2019-05-19 16:03 | Progress Notes ---
DATE: 05/19/2019 SUBJECTIVE: Staff was spoken to. The patient is interviewed. Mood is noted to be irritable. Affect is constricted. Coping skills are noted to be very poor. The patient has been having difficult time. The patient is reported to have been doing okay, but after the breakfast he got up and then he almost fell. The patient's coping skills are noted to be very poor. Continues to be very paranoid and he is trying to expose himself and the patient needs to be redirected. ASSESSMENT: The patient is still psychotic. PLAN: To continue the patient with the Depakote and Seroquel and follow up. JOB# [id number]
[2019-05-20] MEDS: INSULIN LISPRO SLIDING SCALE 100 UNITS/ML UNIT SUBQ SCH ×4 (06:31→21:36)
--- NOTE | 2019-05-20 08:51 | General Progress Note ---
Subjective - Review of Systems Service Date: 05/20/19 Subjective: Patient was seen awake, alert. VS T 97.2 P 66 R 20 BP 110/74 Objective - Results Result Diagrams: 05/15/19 19:00 05/15/19 19:00 Recent Labs: Laboratory Last Values WBC 9.0 Th/cmm (4.8-10.8) 05/15/19 19:00 RBC 5.08 Mil/cmm (3.80-5.80) 05/15/19 19:00 Hgb 15.8 gm/dL (12-16) 05/15/19 19:00 Hct 47.2 % (41.0-60) 05/15/19 19:00 MCV 93.1 fl (80-99) 05/15/19 19:00 MCH 31.0 pg (27.0-31.0) 05/15/19 19: MCHC Differential 33.3 pg (28.0-36.0) 05/15/19:00 RDW 13.1 % (11.5-20.0) 05/15/19: Plt Count 237 Th/cmm (150-400) 05/15/19 19:00 MPV 8.3 fl 05/15/19 19:00 Neutrophils % 61.0 % (40.0-80.0) 05/15/19 19:00 Lymphocytes % 25.3 % (20.0-50.0) 05/15/19 19:00 Monocytes % 9.6 % (2.0-10.0) 05/15/19:00 Eosinophils % 2.5 % (0.0-5.0) 05/15/19: Basophils % 1.6 % (0.0-2.0) 05/15/19 19:00 PT 10.8 SECONDS (9.5-11.5) 05/15/19 19:00 INR 1.04 (0.5-1.4) 05/15/19 19:00 PTT (Actin FS) 31.0 SECONDS (26.0-38.0) 05/15/19 19:00 Sodium 140 mEq/L (136-145) 05/15/19 19:00 Potassium 4.4 mEq/L (3.5-5.1) 05/15/19 19:00 Chloride 104 mEq/L (98-107) 05/15/19 19:00 Carbon Dioxide 31.1 mEq/L (21.0-31.0) H 05/15/19 19:00 Anion Gap 9.3 (7.0-16.0) 05/15/19 19:00 BUN 22 mg/dL (7-25) 05/15/19 19:00 Creatinine 0.9 mg/dL (0.7-1.3) 05/15/19 19:00 Est GFR ( Amer) > 60.0 ml/min (>90) 05/15/19 19:00 Est GFR (Non-Af Amer) > 60.0 ml/min 05/15/19 19:00 BUN/Creatinine Ratio 24.4 05/15/19 19:00 Glucose 93 mg/dL (70-105) 05/15/19 19:00 POC Glucose 77 MG/DL (70 - 105) 05/20/19 06:17 Calcium 9.1 mg/dL (8.6-10.3) 05/15/19 19:00 Total Bilirubin 0.4 mg/dL (0.3-1.0) 05/15/19 19:00 AST 15 U/L (13-39) 05/15/19 19:00 ALT 13 U/L (7-52) 05/15/19 19:00 Alkaline Phosphatase 43 U/L (34-104) 05/15/19 19:00 Troponin I < 0.01 ng/mL (0.01-0.05) L 05/15/19 19:00 B-Natriuretic Peptide 9.7 pg/mL (5.0-100.0) 05/15/19 19:00 Total Protein 6.3 gm/dL (6.0-8.3) 05/15/19 19:00 Albumin 3.8 gm/dL (4.2-5.5) L 05/15/19 19:00 Globulin 2.5 gm/dL 05/15/19 19:00 Albumin/Globulin Ratio 1.5 (1.0-1.8) 05/15/19 19:00 Triglycerides 209 mg/dL (<150) H 05/15/19 19:00 Cholesterol 189 mg/dL (<200) 05/15/19 19:00 LDL Cholesterol Direct 130 mg/dL (75-193) 05/15/19 19:00 HDL Cholesterol 36 mg/dL (23-92) 05/15/19 19:00 TSH 2.87 uIU/ml (0.34-5.60) 05/15/19 19:00 Urine Source RANDOM 05/15/19 20:25 Urine Color YELLOW 05/15/19 20:25 Urine Clarity HAZY (CLEAR) 05/15/19 20:25 Urine pH 5.5 (4.6 - 8.0) 05/15/19 20:25 Ur Specific [place] 1.025 (1.005-1.030) 05/15/19 20:25 Urine Protein NEGATIVE mg/dL (NEGATIVE) 05/15/19 20:25 Urine Glucose (UA) NEGATIVE mg/dL (NEGATIVE) 05/15/19 20:25 Urine Ketones NEGATIVE mg/dL (NEGATIVE) 05/15/19 20:25 Urine Blood NEGATIVE (NEGATIVE) 05/15/19 20:25 Urine Nitrate NEGATIVE (NEGATIVE) 05/15/19 20:25 Urine Bilirubin NEGATIVE (NEGATIVE) 05/15/19 20:25 Urine Urobilinogen 0.2 E.U./dL (0.2 - 1.0) 05/15/19 20:25 Ur Leukocyte Esterase NEGATIVE (NEGATIVE) 05/15/19 20:25 Urine RBC 0-2 /hpf (0-5) H 05/15/19 20:25 Urine WBC 2-5 /hpf (0-5) 05/15/19 20:25 Ur Epithelial Cells FEW /lpf (FEW) 05/15/19 20:25 Urine Bacteria FEW /hpf (NONE SEEN) 05/15/19 20:25 Urine Mucus FEW /lpf (FEW) 05/15/19 20:25 Urine Opiates Screen NEGATIVE (NEGATIVE) 05/15/19 20:25 Urine Methadone Screen NEGATIVE (NEGATIVE) 05/15/19 20:25 Ur Barbiturates Screen NEGATIVE (NEGATIVE) 05/15/19 20:25 Ur Tricyclics Screen NEGATIVE (NEGATIVE) 05/15/19 20:25 Ur Phencyclidine Scrn NEGATIVE (NEGATIVE) 05/15/19 20:25 Amphetamines Screen NEGATIVE (NEGATIVE) 05/15/19 20:25 U Methamphetamines Scrn NEGATIVE (NEGATIVE) 05/15/19 20:25 U Benzodiazepines Scrn NEGATIVE (NEGATIVE) 05/15/19 20:25 U Cocaine Metab Screen NEGATIVE (NEGATIVE) 05/15/19 20:25 U Cannabinoids Screen NEGATIVE (NEGATIVE) 05/15/19 20:25 RPR NONREACTIVE (NONREACTIVE) 05/15/19 19:00 - Physical Exam Vitals and I&O: Vital Signs Temp 97.2 F 05/19/19 20:00 Pulse 66 05/19/19 20:00 Resp 20 05/19/19 20:00 BP 110/74 05/19/19 20:00 Pulse Ox 96 05/19/19 20:00 Intake & Output 05/19/19 05/20/19 05/20/19 18:59 06:59 18:59 Intake Total 1200 Balance 1200 Intake: Oral 1200 Other: # Bowel Movements 1 Active Medications: Current Medications Acetaminophen (Tylenol) 650 mg PO Q4HR PRN PRN Reason: Mild Pain / Temp above 100 Stop: 07/14/19 22:10 Al Hydrox/Mg Hydrox/Simethicone (Maalox) 30 ml PO Q4HR PRN PRN Reason: GI DISTRESS Stop: 07/14/19 22:10 Benztropine Mesylate (Cogentin) 2 mg PO BID [facility] Stop: 07/15/19 08:59 Last Admin: 05/19/19 16:23 Dose: 2 mg Bisacodyl (Dulcolax 10 Mg Supp) 10 mg RC DAILY PRN PRN Reason: Constipation Stop: 07/14/19 22:20 Calcium/Vitamin D (Oscal W/Vitamin D) 1 tab PO DAILY [facility] Stop: 07/15/19 08:59 Last Admin: 05/19/19 08:23 Dose: 1 tab Dextrose (D50w) 50 ml IVP PRN PRN PRN Reason: Blood Glucose less than 70 Stop: 07/14/19 22:28 Dextrose (Glutose 40%) 18.75 gm PO PRN PRN PRN Reason: Blood Glucose less than 70 Stop: 07/14/19 22:28 Divalproex Sodium (Depakote Dr) 250 mg PO BID [facility]; Protocol Stop: 07/15/19 08:59 Last Admin: 05/19/19 16:23 Dose: 250 mg Docusate Sodium (Colace) 100 mg PO DAILY [facility] Stop: 07/15/19 08:59 Last Admin: 05/19/19 08:23 Dose: 100 mg Glucagon (Glucagen) 1 mg IM PRN PRN PRN Reason: Blood Glucose less than 70 Stop: 07/14/19 22:28 Insulin Human Lispro (Humalog Insulin Sliding Scale) 0 units SUBQ ACHS [facility]; Protocol Stop: 07/15/19 07:29 Last Admin: 05/20/19 06:31 Dose: Not Given Lorazepam (Ativan) 0.5 mg PO Q4HR PRN; Protocol PRN Reason: Agitation Stop: 06/14/19 21:09 Magnesium Hydroxide (Milk Of Magnesia) 30 ml PO HS PRN PRN Reason: Constipation Multivitamins/Vitamin C (Theragran) 1 tab PO DAILY [facility] Stop: 07/15/19 08:59 Last Admin: 05/19/19 08:23 Dose: 1 tab Quetiapine Fumarate (Seroquel) 25 mg PO BID [facility]; Protocol Stop: 07/17/19 08:59 Last Admin: 05/19/19 16:23 Dose: 25 mg Sodium Phosphate (Fleet Enema) 135 ml RC Q2D PRN PRN Reason: Constipation Stop: 07/14/19 22:20 Zolpidem Tartrate (Ambien) 5 mg PO HS PRN PRN Reason: Insomnia Stop: 07/14/19 22:10 Last Admin: 05/19/19 21:36 Dose: 5 mg General: Alert, Oriented x3, No acute distress HEENT: Atraumatic, PERRLA, EOMI Neck: Supple Cardiovascular: Regular rate, Normal S1, Normal S2 Lungs: Clear to auscultation Abdomen: Bowel sounds, Soft Extremities: no Clubbing, no Cyanosis, no Edema Neurological: Normal gait - Procedures Procedures: Procedures Procedure Code Date COLONOSCOPY 45.06/28/11 ESOPHAGOGASTRODUODENOSCOPY [EGD] W/CLOSED BIOPSY 45.16 06/28/11 Assessment/Plan - Assessment Assessment: psychosis PUD/GERD HTN improved Anemia Depression Schizophrenia - Plan Plan: BP slightly elevated will add clonidine PRN
[2019-05-20] MEDS: Calcium Carb/Vit D 500 mg/200 U Tab PO SCH (08:54)
[2019-05-20] MEDS: Multivitamin Tab PO SCH (08:54)
[2019-05-20] MEDS: Benztropine 1 MG TAB PO SCH ×2 (08:54→16:42)
--- NOTE | 2019-05-20 17:37 | Progress Notes ---
DATE: 05/20/2019 PSYCHIATRIC PROGRESS NOTE SUBJECTIVE: Staff was spoken to. The patient is interviewed. Mood is noted to be irritable. Affect is constricted. Insight and judgment at this time are noted to be still impaired. Impulse control seems to be limited. The patient has been having difficult time to cope with the stress, continues to be disruptive. ASSESSMENT: The patient is still psychotic and impulsive. PLAN: To continue the patient with the supportive therapy and followup. [facility]# [id number]
[2019-05-21] MEDS: INSULIN LISPRO SLIDING SCALE 100 UNITS/ML UNIT SUBQ SCH ×5 (06:58→20:58)
--- NOTE | 2019-05-21 08:02 | General Progress Note ---
Subjective - Review of Systems Service Date: 05/21/19 Subjective: Patient was seen awake, alert. VS T 97.2 P 66 R 20 BP 110/74 Objective - Results Result Diagrams: 05/15/19 19:00 05/15/19 19: Recent Labs: Laboratory Last Values WBC 9.0 Th/cmm (4.8-10.8) 05/15/19 19:00 RBC 5.08 Mil/cmm (3.80-5.80) 05/15/19 19: Hgb 15.8 gm/dL (12-16) 05/15/19 19:00 Hct 47.2 % (41.0-60) 05/15/19 19:00 MCV 93.1 fl (80-99) 05/15/19 19:00 MCH 31.0 pg (27.0-31.0) 05/15/19: MCHC Differential 33.3 pg (28.0-36.0) 05/15/19: RDW 13.1 % (11.5-20.0) 05/15/19: Plt Count 237 Th/cmm (150-400) 05/15/19 19:00 MPV 8.3 fl 05/15/19 19:00 Neutrophils % 61.0 % (40.0-80.0) 05/15/19:00 Lymphocytes % 25.3 % (20.0-50.0) 05/15/19 19:00 Monocytes % 9.6 % (2.0-10.0) 05/15/19: Eosinophils % 2.5 % (0.0-5.0) 05/15/19: Basophils % 1.6 % (0.0-2.0) 05/15/19 19:00 PT 10.8 SECONDS (9.5-11.5) 05/15/19 19:00 INR 1.04 (0.5-1.4) 05/15/19 19:00 PTT (Actin FS) 31.0 SECONDS (26.0-38.0) 05/15/19 19:00 Sodium 140 mEq/L (136-145) 05/15/19 19:00 Potassium 4.4 mEq/L (3.5-5.1) 05/15/19 19:00 Chloride 104 mEq/L (98-107) 05/15/19 19:00 Carbon Dioxide 31.1 mEq/L (21.0-31.0) H 05/15/19 19:00 Anion Gap 9.3 (7.0-16.0) 05/15/19 19:00 BUN 22 mg/dL (7-25) 05/15/19 19:00 Creatinine 0.9 mg/dL (0.7-1.3) 05/15/19 19:00 Est GFR ( Amer) > 60.0 ml/min (>90) 05/15/19 19:00 Est GFR (Non-Af Amer) > 60.0 ml/min 05/15/19 19:00 BUN/Creatinine Ratio 24.4 05/15/19 19:00 Glucose 93 mg/dL (70-105) 05/15/19 19:00 POC Glucose 145 MG/DL (70 - 105) H 05/21/19 06:18 Calcium 9.1 mg/dL (8.6-10.3) 05/15/19 19:00 Total Bilirubin 0.4 mg/dL (0.3-1.0) 05/15/19 19:00 AST 15 U/L (13-39) 05/15/19 19:00 ALT 13 U/L (7-52) 05/15/19 19:00 Alkaline Phosphatase 43 U/L (34-104) 05/15/19 19:00 Troponin I < 0.01 ng/mL (0.01-0.05) L 05/15/19 19:00 B-Natriuretic Peptide 9.7 pg/mL (5.0-100.0) 05/15/19 19:00 Total Protein 6.3 gm/dL (6.0-8.3) 05/15/19 19:00 Albumin 3.8 gm/dL (4.2-5.5) L 05/15/19 19:00 Globulin 2.5 gm/dL 05/15/19 19:00 Albumin/Globulin Ratio 1.5 (1.0-1.8) 05/15/19 19:00 Triglycerides 209 mg/dL (<150) H 05/15/19 19:00 Cholesterol 189 mg/dL (<200) 05/15/19 19:00 LDL Cholesterol Direct 130 mg/dL (75-193) 05/15/19 19:00 HDL Cholesterol 36 mg/dL (23-92) 05/15/19 19:00 TSH 2.87 uIU/ml (0.34-5.60) 05/15/19 19:00 Urine Source RANDOM 05/15/19 20:25 Urine Color YELLOW 05/15/19 20:25 Urine Clarity HAZY (CLEAR) 05/15/19 20:25 Urine pH 5.5 (4.6 - 8.0) 05/15/19 20:25 Ur Specific [place] 1.025 (1.005-1.030) 05/15/19 20:25 Urine Protein NEGATIVE mg/dL (NEGATIVE) 05/15/19 20:25 Urine Glucose (UA) NEGATIVE mg/dL (NEGATIVE) 05/15/19 20:25 Urine Ketones NEGATIVE mg/dL (NEGATIVE) 05/15/19 20:25 Urine Blood NEGATIVE (NEGATIVE) 05/15/19 20:25 Urine Nitrate NEGATIVE (NEGATIVE) 05/15/19 20:25 Urine Bilirubin NEGATIVE (NEGATIVE) 05/15/19 20:25 Urine Urobilinogen 0.2 E.U./dL (0.2 - 1.0) 05/15/19 20:25 Ur Leukocyte Esterase NEGATIVE (NEGATIVE) 05/15/19 20:25 Urine RBC 0-2 /hpf (0-5) H 05/15/19 20:25 Urine WBC 2-5 /hpf (0-5) 05/15/19 20:25 Ur Epithelial Cells FEW /lpf (FEW) 05/15/19 20:25 Urine Bacteria FEW /hpf (NONE SEEN) 05/15/19 20:25 Urine Mucus FEW /lpf (FEW) 05/15/19 20:25 Urine Opiates Screen NEGATIVE (NEGATIVE) 05/15/19 20:25 Urine Methadone Screen NEGATIVE (NEGATIVE) 05/15/19 20:25 Ur Barbiturates Screen NEGATIVE (NEGATIVE) 05/15/19 20:25 Ur Tricyclics Screen NEGATIVE (NEGATIVE) 05/15/19 20:25 Ur Phencyclidine Scrn NEGATIVE (NEGATIVE) 05/15/19 20:25 Amphetamines Screen NEGATIVE (NEGATIVE) 05/15/19 20:25 U Methamphetamines Scrn NEGATIVE (NEGATIVE) 05/15/19 20:25 U Benzodiazepines Scrn NEGATIVE (NEGATIVE) 05/15/19 20:25 U Cocaine Metab Screen NEGATIVE (NEGATIVE) 05/15/19 20:25 U Cannabinoids Screen NEGATIVE (NEGATIVE) 05/15/19 20:25 RPR NONREACTIVE (NONREACTIVE) 05/15/19 19:00 - Physical Exam Vitals and I&O: Vital Signs Temp 0 F 05/21/19 06:46 Pulse 66 05/19/19 20:00 Resp 20 05/19/19 20:00 BP 110/74 05/19/19 20:00 Pulse Ox 96 05/19/19 20:00 Intake & Output 05/20/19 05/21/19 05/21/19 18:59 06:59 18:59 Intake Total 900 120 Balance 900 120 Intake: Oral 900 120 Other: # Voids 4 3 # Bowel Movements 1 1 Active Medications: Current Medications Acetaminophen (Tylenol) 650 mg PO Q4HR PRN PRN Reason: Mild Pain / Temp above 100 Stop: 07/14/19 22:10 Al Hydrox/Mg Hydrox/Simethicone (Maalox) 30 ml PO Q4HR PRN PRN Reason: GI DISTRESS Stop: 07/14/19 22:10 Benztropine Mesylate (Cogentin) 2 mg PO BID [facility] Stop: 07/15/19 08:59 Last Admin: 05/20/19 16:42 Dose: 2 mg Bisacodyl (Dulcolax 10 Mg Supp) 10 mg RC DAILY PRN PRN Reason: Constipation Stop: 07/14/19 22:20 Calcium/Vitamin D (Oscal W/Vitamin D) 1 tab PO DAILY [facility] Stop: 07/15/19 08:59 Last Admin: 05/20/19 08:54 Dose: 1 tab Dextrose (D50w) 50 ml IVP PRN PRN PRN Reason: Blood Glucose less than 70 Stop: 07/14/19 22:28 Dextrose (Glutose 40%) 18.75 gm PO PRN PRN PRN Reason: Blood Glucose less than 70 Stop: 07/14/19 22:28 Divalproex Sodium (Depakote Dr) 250 mg PO BID [facility]; Protocol Stop: 07/15/19 08:59 Last Admin: 05/20/19 16:42 Dose: 250 mg Docusate Sodium (Colace) 100 mg PO DAILY [facility] Stop: 07/15/19 08:59 Last Admin: 05/20/19 08:54 Dose: 100 mg Glucagon (Glucagen) 1 mg IM PRN PRN PRN Reason: Blood Glucose less than 70 Stop: 07/14/19 22:28 Insulin Human Lispro (Humalog Insulin Sliding Scale) 0 units SUBQ ACHS [facility]; Protocol Stop: 07/15/19 07:29 Last Admin: 05/21/19 06:58 Dose: Not Given Lorazepam (Ativan) 0.5 mg PO Q4HR PRN; Protocol PRN Reason: Agitation Stop: 06/14/19 21:09 Magnesium Hydroxide (Milk Of Magnesia) 30 ml PO HS PRN PRN Reason: Constipation Multivitamins/Vitamin C (Theragran) 1 tab PO DAILY [facility] Stop: 07/15/19 08:59 Last Admin: 05/20/19 08:54 Dose: 1 tab Quetiapine Fumarate (Seroquel) 25 mg PO BID [facility]; Protocol Stop: 07/17/19 08:59 Last Admin: 05/20/19 16:42 Dose: 25 mg Sodium Phosphate (Fleet Enema) 135 ml RC Q2D PRN PRN Reason: Constipation Stop: 07/14/19 22:20 Zolpidem Tartrate (Ambien) 5 mg PO HS PRN PRN Reason: Insomnia Stop: 07/14/19 22:10 Last Admin: 05/20/19 21:37 Dose: 5 mg General: Alert, Oriented x3, No acute distress HEENT: Atraumatic, PERRLA, EOMI Neck: Supple Cardiovascular: Regular rate, Normal S1, Normal S2 Lungs: Clear to auscultation Abdomen: Bowel sounds, Soft Extremities: no Clubbing, no Cyanosis, no Edema Neurological: Normal gait - Procedures Procedures: Procedures Procedure Code Date COLONOSCOPY 45.23 06/28/11 ESOPHAGOGASTRODUODENOSCOPY [EGD] W/CLOSED BIOPSY 45.16 06/28/11 Assessment/Plan - Assessment Assessment: psychosis PUD/GERD HTN improved Anemia Depression Schizophrenia - Plan Plan: BP slightly elevated will add clonidine PRN
[2019-05-21] MEDS: Multivitamin Tab PO SCH (09:08)
[2019-05-21] MEDS: Calcium Carb/Vit D 500 mg/200 U Tab PO SCH (09:08)
[2019-05-21] MEDS: Benztropine 1 MG TAB PO SCH ×3 (09:08→16:57)
--- NOTE | 2019-05-22 03:44 | Progress Notes ---
DATE: 05/21/2019 SUBJECTIVE: Staff was spoken to. The patient is interviewed. Mood is noted to be irritable. Affect is constricted. Coping skills at this time are noted to be very poor. The patient has been getting easily irritable. The patient has been very agitated and throwing the stuff on to the floor and has been trying to spit the medication out. ASSESSMENT: The patient is still psychotic and impulsive. PLAN: To continue the patient with the supportive therapy and followup. [facility]# [id number]
[2019-05-22] MEDS: INSULIN LISPRO SLIDING SCALE 100 UNITS/ML UNIT SUBQ SCH ×4 (06:50→21:01)
--- NOTE | 2019-05-22 08:04 | General Progress Note ---
Subjective - Review of Systems Service Date: 05/22/19 Subjective: Patient was seen awake, alert. VS T 97.9 P 65 R 20 BP 121/70 Objective - Results Result Diagrams: 05/15/19 19:00 05/15/19 19:00 Recent Labs: Laboratory Last Values WBC 9.0 Th/cmm (4.8-10.8) 05/15/19 19:00 RBC 5.08 Mil/cmm (3.80-5.80) 05/15/19 19:00 Hgb 15.8 gm/dL (12-16) 05/15/19 19:00 Hct 47.2 % (41.0-60) 05/15/19 19:00 MCV 93.1 fl (80-99) 05/15/19 19:00 MCH 31.0 pg (27.0-31.0) 05/15/19 19: MCHC Differential 33.3 pg (28.0-36.0) 05/15/19:00 RDW 13.1 % (11.5-20.0) 05/15/19: Plt Count 237 Th/cmm (150-400) 05/15/19 19:00 MPV 8.3 fl 05/15/19 19:00 Neutrophils % 61.0 % (40.0-80.0) 05/15/19 19:00 Lymphocytes % 25.3 % (20.0-50.0) 05/15/19 19:00 Monocytes % 9.6 % (2.0-10.0) 05/15/19:00 Eosinophils % 2.5 % (0.0-5.0) 05/15/19: Basophils % 1.6 % (0.0-2.0) 05/15/19 19:00 PT 10.8 SECONDS (9.5-11.5) 05/15/19 19:00 INR 1.04 (0.5-1.4) 05/15/19 19:00 PTT (Actin FS) 31.0 SECONDS (26.0-38.0) 05/15/19 19:00 Sodium 140 mEq/L (136-145) 05/15/19 19:00 Potassium 4.4 mEq/L (3.5-5.1) 05/15/19 19:00 Chloride 104 mEq/L (98-107) 05/15/19 19:00 Carbon Dioxide 31.1 mEq/L (21.0-31.0) H 05/15/19 19:00 Anion Gap 9.3 (7.0-16.0) 05/15/19 19:00 BUN 22 mg/dL (7-25) 05/15/19 19:00 Creatinine 0.9 mg/dL (0.7-1.3) 05/15/19 19:00 Est GFR ( Amer) > 60.0 ml/min (>90) 05/15/19 19:00 Est GFR (Non-Af Amer) > 60.0 ml/min 05/15/19 19:00 BUN/Creatinine Ratio 24.4 05/15/19 19:00 Glucose 93 mg/dL (70-105) 05/15/19 19:00 POC Glucose 145 MG/DL (70 - 105) H 05/21/19 06:18 Calcium 9.1 mg/dL (8.6-10.3) 05/15/19 19:00 Total Bilirubin 0.4 mg/dL (0.3-1.0) 05/15/19 19:00 AST 15 U/L (13-39) 05/15/19 19:00 ALT 13 U/L (7-52) 05/15/19 19:00 Alkaline Phosphatase 43 U/L (34-104) 05/15/19 19:00 Troponin I < 0.01 ng/mL (0.01-0.05) L 05/15/19 19:00 B-Natriuretic Peptide 9.7 pg/mL (5.0-100.0) 05/15/19 19:00 Total Protein 6.3 gm/dL (6.0-8.3) 05/15/19 19:00 Albumin 3.8 gm/dL (4.2-5.5) L 05/15/19 19:00 Globulin 2.5 gm/dL 05/15/19 19:00 Albumin/Globulin Ratio 1.5 (1.0-1.8) 05/15/19 19:00 Triglycerides 209 mg/dL (<150) H 05/15/19 19:00 Cholesterol 189 mg/dL (<200) 05/15/19 19:00 LDL Cholesterol Direct 130 mg/dL (75-193) 05/15/19 19:00 HDL Cholesterol 36 mg/dL (23-92) 05/15/19 19:00 TSH 2.87 uIU/ml (0.34-5.60) 05/15/19 19:00 Urine Source RANDOM 05/15/19 20:25 Urine Color YELLOW 05/15/19 20:25 Urine Clarity HAZY (CLEAR) 05/15/19 20:25 Urine pH 5.5 (4.6 - 8.0) 05/15/19 20:25 Ur Specific [place] 1.025 (1.005-1.030) 05/15/19 20:25 Urine Protein NEGATIVE mg/dL (NEGATIVE) 05/15/19 20:25 Urine Glucose (UA) NEGATIVE mg/dL (NEGATIVE) 05/15/19 20:25 Urine Ketones NEGATIVE mg/dL (NEGATIVE) 05/15/19 20:25 Urine Blood NEGATIVE (NEGATIVE) 05/15/19 20:25 Urine Nitrate NEGATIVE (NEGATIVE) 05/15/19 20:25 Urine Bilirubin NEGATIVE (NEGATIVE) 05/15/19 20:25 Urine Urobilinogen 0.2 E.U./dL (0.2 - 1.0) 05/15/19 20:25 Ur Leukocyte Esterase NEGATIVE (NEGATIVE) 05/15/19 20:25 Urine RBC 0-2 /hpf (0-5) H 05/15/19 20:25 Urine WBC 2-5 /hpf (0-5) 05/15/19 20:25 Ur Epithelial Cells FEW /lpf (FEW) 05/15/19 20:25 Urine Bacteria FEW /hpf (NONE SEEN) 05/15/19 20:25 Urine Mucus FEW /lpf (FEW) 05/15/19 20:25 Urine Opiates Screen NEGATIVE (NEGATIVE) 05/15/19 20:25 Urine Methadone Screen NEGATIVE (NEGATIVE) 05/15/19 20:25 Ur Barbiturates Screen NEGATIVE (NEGATIVE) 05/15/19 20:25 Ur Tricyclics Screen NEGATIVE (NEGATIVE) 05/15/19 20:25 Ur Phencyclidine Scrn NEGATIVE (NEGATIVE) 05/15/19 20:25 Amphetamines Screen NEGATIVE (NEGATIVE) 05/15/19 20:25 U Methamphetamines Scrn NEGATIVE (NEGATIVE) 05/15/19 20:25 U Benzodiazepines Scrn NEGATIVE (NEGATIVE) 05/15/19 20:25 U Cocaine Metab Screen NEGATIVE (NEGATIVE) 05/15/19 20:25 U Cannabinoids Screen NEGATIVE (NEGATIVE) 05/15/19 20:25 RPR NONREACTIVE (NONREACTIVE) 05/15/19 19:00 - Physical Exam Vitals and I&O: Vital Signs Temp 0 F 05/22/19 05:55 Pulse 65 05/21/19 20:45 Resp 20 05/21/19 20:45 BP 121/70 05/21/19 20:45 Pulse Ox 96 05/21/19 20:45 Intake & Output 05/21/19 05/22/19 05/22/19 18:59 06:59 18:59 Intake Total 2200 240 Balance 2200 240 Intake: Oral 2200 240 Other: # Voids 4 3 # Bowel Movements 1 1 Active Medications: Current Medications Acetaminophen (Tylenol) 650 mg PO Q4HR PRN PRN Reason: Mild Pain / Temp above 100 Stop: 07/14/19 22:10 Al Hydrox/Mg Hydrox/Simethicone (Maalox) 30 ml PO Q4HR PRN PRN Reason: GI DISTRESS Stop: 07/14/19 22:10 Benztropine Mesylate (Cogentin) 2 mg PO BID [facility] Stop: 07/15/19 08:59 Last Admin: 05/21/19 16:57 Dose: Not Given Bisacodyl (Dulcolax 10 Mg Supp) 10 mg RC DAILY PRN PRN Reason: Constipation Stop: 07/14/19 22:20 Calcium/Vitamin D (Oscal W/Vitamin D) 1 tab PO DAILY [facility] Stop: 07/15/19 08:59 Last Admin: 05/21/19 09:08 Dose: 1 tab Dextrose (D50w) 50 ml IVP PRN PRN PRN Reason: Blood Glucose less than 70 Stop: 07/14/19 22:28 Dextrose (Glutose 40%) 18.75 gm PO PRN PRN PRN Reason: Blood Glucose less than 70 Stop: 07/14/19 22:28 Divalproex Sodium (Depakote Dr) 250 mg PO BID [facility]; Protocol Stop: 07/15/19 08:59 Last Admin: 05/21/19 16:58 Dose: Not Given Docusate Sodium (Colace) 100 mg PO DAILY [facility] Stop: 07/15/19 08:59 Last Admin: 05/21/19 09:08 Dose: 100 mg Glucagon (Glucagen) 1 mg IM PRN PRN PRN Reason: Blood Glucose less than 70 Stop: 07/14/19 22:28 Insulin Human Lispro (Humalog Insulin Sliding Scale) 0 units SUBQ ACHS [facility]; Protocol Stop: 07/15/19 07:29 Last Admin: 05/22/19 06:50 Dose: Not Given Lorazepam (Ativan) 0.5 mg PO Q4HR PRN; Protocol PRN Reason: Agitation Stop: 06/14/19 21:09 Magnesium Hydroxide (Milk Of Magnesia) 30 ml PO HS PRN PRN Reason: Constipation Multivitamins/Vitamin C (Theragran) 1 tab PO DAILY [facility] Stop: 07/15/19 08:59 Last Admin: 05/21/19 09:08 Dose: 1 tab Quetiapine Fumarate (Seroquel) 25 mg PO BID [facility]; Protocol Stop: 07/17/19 08:59 Last Admin: 05/21/19 16:58 Dose: Not Given Sodium Phosphate (Fleet Enema) 135 ml RC Q2D PRN PRN Reason: Constipation Stop: 07/14/19 22:20 Zolpidem Tartrate (Ambien) 5 mg PO HS PRN PRN Reason: Insomnia Stop: 07/14/19 22:10 Last Admin: 05/22/19 01:12 Dose: 5 mg General: Alert, Oriented x3, No acute distress HEENT: Atraumatic, PERRLA, EOMI Neck: Supple Cardiovascular: Regular rate, Normal S1, Normal S2 Lungs: Clear to auscultation Abdomen: Bowel sounds, Soft Extremities: no Clubbing, no Cyanosis, no Edema Neurological: Normal gait - Procedures Procedures: Procedures Procedure Code Date COLONOSCOPY 45.23 06/28/11 ESOPHAGOGASTRODUODENOSCOPY [EGD] W/CLOSED BIOPSY 45.16 06/28/11 Assessment/Plan - Assessment Assessment: psychosis PUD/GERD HTN improved Anemia Depression Schizophrenia - Plan Plan: BP slightly elevated will add clonidine PRN Nutritional Asmnt/Malnutr-PDOC - Dietary Evaluation Malnutrition Findings (Please click <Entered> for more info): Nutritional Asmnt/Malnutrition Start: 05/21/19 12: 19 Text: Status: Complete Freq: Protocol: Document 05/21/19 12:19 VANITA (Rec: 05/21/19 12:22 [email or web address]) Nutritional Asmnt/Malnutrition Patient General Information Nutritional Screening Low Risk Diagnosis Psychosis Pertinent Medical Hx/Surgical Hx HTN, PUD/GERD, Extrapyramidal symptoms, PVD, Duodenal ulcer, Psychosis, Depression, Schizophrenia, Bipolar, Anxiety Subjective Information Pt is a 68-year-old male from [facility] admitted on 05/15 c/o increased agitation and aggressive behavior. Per Meal/ Nutrition Activity Record, Pt PO intake 92% meals x 3 days. HT: 57 WT: 139 LB (63.18 kg) BMI: 21.77 (Normal) GI: WNL, Flat, Soft BM: 05/21 x1 I/O: 1020/Not Noted Skin: WNL, Intact, Dryness Marek: 20 Diet Order: Pureed Estimated Energy Needs: ( Geriatric, CBW) 9343-6292 kcals (25-30 kcals/ kg) 63-76g Pro (1.0-1.2 g/kg) 9706-9157 ml (25-30 ml/kg) Pt PO intake 92% meals x 3 days Per Meal/Nutrition Activity Record. Dietary is currently providing an estimated 2229 kcals and 97 gm Pro, per Pt PO intake this is providing an estimated 2050 kcals and 89 gm Pro to meet 100% kcal and 100+% Pro needs- Adequate. Current Diet Order/ Nutrition Support Pureed Pertinent Medications Maalox (PRN), Dulcolax (PRN), Oscal w/Vitamin D, D50w (PRN), Glutose 40% (PRN), Colace, Glucagen (PRN), INS-SS, MOM ( PRN), Theragran, Fleet enema ( PRN) Pertinent Labs 05/21: POC Glucose (last 24 hours) 77, 145 05/18: POC Glucose (last 24 hours) 118, 119, 118 Nutritional Hx/Data Height 1.7 m Height (Calculated Centimeters) 170.2 Current Weight (lbs) 63.049 kg Weight (Calculated Kilograms) 63.0 Weight (Calculated Grams) 77669.3 [place] Body Weight 66.1 kg % [place] Body Weight 96 Body Mass Index (BMI) 21.7 Weight Status Approriate GI Symptoms GI Symptoms None Last BM 05/21 x1 Skin Integrity/Comment: WNL, Intact, Dryness Marek: 20 Current %PO Good (75-100%) Estimated Nutritional Goals BEE in Kcals: Using Current wt Calories/Kcals/Kg 25-30 Kcals Calculated 6550-8306 Protein: Using Current wt Protein g/k.0-1.2 Protein Calculated 63-76 Fluid: ml 2316-4104 ml (25-30 ml/kg) Nutritional Problem 1. Problem Problem Altered nutrition related labs Etiology r/t endocrine dysfunction Signs/Symptoms: aeb 05/21: POC Glucose (last 24 hours) 77, 145 Malnutrition Related to Morbid Obesity Malnutrition related to morbid obesity No Intervention/Recommendation Comments 1.Continue with Pureed diet as ordered. 2.Continue anti-hyperglycemia meds for glucose control per MD order. Expected Outcomes/Goals Expected Outcomes/Goals 1.PO intake to continue to meet 75% of nutritional needs. 2.Monitor PO intake, wt, nutrition related labs, and skin integrity. 3.F/U as low risk in 7 days,
[2019-05-22] MEDS: Calcium Carb/Vit D 500 mg/200 U Tab PO SCH (09:09)
[2019-05-22] MEDS: Multivitamin Tab PO SCH (09:09)
[2019-05-22] MEDS: Benztropine 1 MG TAB PO SCH ×2 (09:10→18:02)
--- NOTE | 2019-05-23 05:07 | Progress Notes ---
DATE: 05/22/2019 SUBJECTIVE: Staff was spoken to. The patient is interviewed. Mood is noted to be irritable. Affect is constricted. The patient's coping skills are noted to be very poor. The patient has been hard to be redirected. No side effects to the medications are noted and the patient is currently on the Seroquel and valproic acid and has been able to tolerate. The patient is being closely monitored. ASSESSMENT AND PLAN: To continue the patient with the supportive therapy, encouraged the patient to verbalize the concerns rather than to act out. JOB# [id number]
[2019-05-23] MEDS: INSULIN LISPRO SLIDING SCALE 100 UNITS/ML UNIT SUBQ SCH ×4 (06:48→21:38)
--- NOTE | 2019-05-23 08:44 | General Progress Note ---
Subjective - Review of Systems Service Date: 05/23/19 Subjective: Patient was seen awake, alert. VS T 97.9 P 65 R 20 BP 121/70 Objective - Results Result Diagrams: 05/15/19 19:00 05/15/19 19: Recent Labs: Laboratory Last Values WBC 9.0 Th/cmm (4.8-10.8) 05/15/19 19:00 RBC 5.08 Mil/cmm (3.80-5.80) 05/15/19 19:00 Hgb 15.8 gm/dL (12-16) 05/15/19 19:00 Hct 47.2 % (41.0-60) 05/15/19 19:00 MCV 93.1 fl (80-99) 05/15/19 19:00 MCH 31.0 pg (27.0-31.0) 05/15/19 19: MCHC Differential 33.3 pg (28.0-36.0) 05/15/19:00 RDW 13.1 % (11.5-20.0) 05/15/19: Plt Count 237 Th/cmm (150-400) 05/15/19 19:00 MPV 8.3 fl 05/15/19 19:00 Neutrophils % 61.0 % (40.0-80.0) 05/15/19 19:00 Lymphocytes % 25.3 % (20.0-50.0) 05/15/19 19:00 Monocytes % 9.6 % (2.0-10.0) 05/15/19:00 Eosinophils % 2.5 % (0.0-5.0) 05/15/19: Basophils % 1.6 % (0.0-2.0) 05/15/19 19:00 PT 10.8 SECONDS (9.5-11.5) 05/15/19 19:00 INR 1.04 (0.5-1.4) 05/15/19 19:00 PTT (Actin FS) 31.0 SECONDS (26.0-38.0) 05/15/19 19:00 Sodium 140 mEq/L (136-145) 05/15/19 19:00 Potassium 4.4 mEq/L (3.5-5.1) 05/15/19 19:00 Chloride 104 mEq/L (98-107) 05/15/19 19:00 Carbon Dioxide 31.1 mEq/L (21.0-31.0) H 05/15/19 19:00 Anion Gap 9.3 (7.0-16.0) 05/15/19 19:00 BUN 22 mg/dL (7-25) 05/15/19 19:00 Creatinine 0.9 mg/dL (0.7-1.3) 05/15/19 19:00 Est GFR ( Amer) > 60.0 ml/min (>90) 05/15/19 19:00 Est GFR (Non-Af Amer) > 60.0 ml/min 05/15/19 19:00 BUN/Creatinine Ratio 24.4 05/15/19 19:00 Glucose 93 mg/dL (70-105) 05/15/19 19:00 POC Glucose 145 MG/DL (70 - 105) H 05/21/19 06:18 Calcium 9.1 mg/dL (8.6-10.3) 05/15/19 19:00 Total Bilirubin 0.4 mg/dL (0.3-1.0) 05/15/19 19:00 AST 15 U/L (13-39) 05/15/19 19:00 ALT 13 U/L (7-52) 05/15/19 19:00 Alkaline Phosphatase 43 U/L (34-104) 05/15/19 19:00 Troponin I < 0.01 ng/mL (0.01-0.05) L 05/15/19 19:00 B-Natriuretic Peptide 9.7 pg/mL (5.0-100.0) 05/15/19 19:00 Total Protein 6.3 gm/dL (6.0-8.3) 05/15/19 19:00 Albumin 3.8 gm/dL (4.2-5.5) L 05/15/19 19:00 Globulin 2.5 gm/dL 05/15/19 19:00 Albumin/Globulin Ratio 1.5 (1.0-1.8) 05/15/19 19:00 Triglycerides 209 mg/dL (<150) H 05/15/19 19:00 Cholesterol 189 mg/dL (<200) 05/15/19 19:00 LDL Cholesterol Direct 130 mg/dL (75-193) 05/15/19 19:00 HDL Cholesterol 36 mg/dL (23-92) 05/15/19 19:00 TSH 2.87 uIU/ml (0.34-5.60) 05/15/19 19:00 Urine Source RANDOM 05/15/19 20:25 Urine Color YELLOW 05/15/19 20:25 Urine Clarity HAZY (CLEAR) 05/15/19 20:25 Urine pH 5.5 (4.6 - 8.0) 05/15/19 20:25 Ur Specific [place] 1.025 (1.005-1.030) 05/15/19 20:25 Urine Protein NEGATIVE mg/dL (NEGATIVE) 05/15/19 20:25 Urine Glucose (UA) NEGATIVE mg/dL (NEGATIVE) 05/15/19 20:25 Urine Ketones NEGATIVE mg/dL (NEGATIVE) 05/15/19 20:25 Urine Blood NEGATIVE (NEGATIVE) 05/15/19 20:25 Urine Nitrate NEGATIVE (NEGATIVE) 05/15/19 20:25 Urine Bilirubin NEGATIVE (NEGATIVE) 05/15/19 20:25 Urine Urobilinogen 0.2 E.U./dL (0.2 - 1.0) 05/15/19 20:25 Ur Leukocyte Esterase NEGATIVE (NEGATIVE) 05/15/19 20:25 Urine RBC 0-2 /hpf (0-5) H 05/15/19 20:25 Urine WBC 2-5 /hpf (0-5) 05/15/19 20:25 Ur Epithelial Cells FEW /lpf (FEW) 05/15/19 20:25 Urine Bacteria FEW /hpf (NONE SEEN) 05/15/19 20:25 Urine Mucus FEW /lpf (FEW) 05/15/19 20:25 Urine Opiates Screen NEGATIVE (NEGATIVE) 05/15/19 20:25 Urine Methadone Screen NEGATIVE (NEGATIVE) 05/15/19 20:25 Ur Barbiturates Screen NEGATIVE (NEGATIVE) 05/15/19 20:25 Ur Tricyclics Screen NEGATIVE (NEGATIVE) 05/15/19 20:25 Ur Phencyclidine Scrn NEGATIVE (NEGATIVE) 05/15/19 20:25 Amphetamines Screen NEGATIVE (NEGATIVE) 05/15/19 20:25 U Methamphetamines Scrn NEGATIVE (NEGATIVE) 05/15/19 20:25 U Benzodiazepines Scrn NEGATIVE (NEGATIVE) 05/15/19 20:25 U Cocaine Metab Screen NEGATIVE (NEGATIVE) 05/15/19 20:25 U Cannabinoids Screen NEGATIVE (NEGATIVE) 05/15/19 20:25 RPR NONREACTIVE (NONREACTIVE) 05/15/19 19:00 - Physical Exam Vitals and I&O: Vital Signs Temp 0 F 05/22/19 05:55 Pulse 65 05/21/19 20:45 Resp 20 05/21/19 20:45 BP 121/70 05/21/19 20:45 Pulse Ox 96 05/21/19 20:45 Intake & Output 05/22/19 05/23/19 05/23/19 18:59 06:59 18:59 Intake Total 800 120 Balance 800 120 Intake: Oral 800 120 Other: # Voids 3 3 # Bowel Movements 1 Active Medications: Current Medications Acetaminophen (Tylenol) 650 mg PO Q4HR PRN PRN Reason: Mild Pain / Temp above 100 Stop: 07/14/19 22:10 Al Hydrox/Mg Hydrox/Simethicone (Maalox) 30 ml PO Q4HR PRN PRN Reason: GI DISTRESS Stop: 07/14/19 22:10 Benztropine Mesylate (Cogentin) 2 mg PO BID [facility] Stop: 07/15/19 08:59 Last Admin: 05/22/19 18:02 Dose: Not Given Bisacodyl (Dulcolax 10 Mg Supp) 10 mg RC DAILY PRN PRN Reason: Constipation Stop: 07/14/19 22:20 Calcium/Vitamin D (Oscal W/Vitamin D) 1 tab PO DAILY [facility] Stop: 07/15/19 08:59 Last Admin: 05/22/19 09:09 Dose: 1 tab Dextrose (D50w) 50 ml IVP PRN PRN PRN Reason: Blood Glucose less than 70 Stop: 07/14/19 22:28 Dextrose (Glutose 40%) 18.75 gm PO PRN PRN PRN Reason: Blood Glucose less than 70 Stop: 07/14/19 22:28 Divalproex Sodium (Depakote Dr) 250 mg PO BID [facility]; Protocol Stop: 07/15/19 08:59 Last Admin: 05/22/19 18:02 Dose: Not Given Docusate Sodium (Colace) 100 mg PO DAILY [facility] Stop: 07/15/19 08:59 Last Admin: 05/22/19 09:09 Dose: 100 mg Glucagon (Glucagen) 1 mg IM PRN PRN PRN Reason: Blood Glucose less than 70 Stop: 07/14/19 22:28 Insulin Human Lispro (Humalog Insulin Sliding Scale) 0 units SUBQ ACHS [facility]; Protocol Stop: 07/15/19 07:29 Last Admin: 05/23/19 06:48 Dose: Not Given Lorazepam (Ativan) 0.5 mg PO Q4HR PRN; Protocol PRN Reason: Agitation Stop: 06/14/19 21:09 Magnesium Hydroxide (Milk Of Magnesia) 30 ml PO HS PRN PRN Reason: Constipation Multivitamins/Vitamin C (Theragran) 1 tab PO DAILY [facility] Stop: 07/15/19 08:59 Last Admin: 05/22/19 09:09 Dose: 1 tab Quetiapine Fumarate (Seroquel) 25 mg PO BID [facility]; Protocol Stop: 07/17/19 08:59 Last Admin: 05/22/19 18:02 Dose: Not Given Sodium Phosphate (Fleet Enema) 135 ml RC Q2D PRN PRN Reason: Constipation Stop: 07/14/19 22:20 Zolpidem Tartrate (Ambien) 5 mg PO HS PRN PRN Reason: Insomnia Stop: 07/14/19 22:10 Last Admin: 05/22/19 22:24 Dose: 5 mg General: Alert, Oriented x3, No acute distress HEENT: Atraumatic, PERRLA, EOMI Neck: Supple Cardiovascular: Regular rate, Normal S1, Normal S2 Lungs: Clear to auscultation Abdomen: Bowel sounds, Soft Extremities: no Clubbing, no Cyanosis, no Edema Neurological: Normal gait - Procedures Procedures: Procedures Procedure Code Date COLONOSCOPY 45.23 06/28/11 ESOPHAGOGASTRODUODENOSCOPY [EGD] W/CLOSED BIOPSY 45.16 06/28/11 Assessment/Plan - Assessment Assessment: psychosis PUD/GERD HTN improved Anemia Depression Schizophrenia - Plan Plan: BP slightly elevated will add clonidine PRN Nutritional Asmnt/Malnutr-PDOC - Dietary Evaluation Malnutrition Findings (Please click <Entered> for more info): Nutritional Asmnt/Malnutrition Start: 05/21/19 12: 19 Text: Status: Complete Freq: Protocol: Document 05/21/19 12:19 VANITA (Rec: 05/21/19 12:22 [email or web address] [email or web address]) Nutritional Asmnt/Malnutrition Patient General Information Nutritional Screening Low Risk Diagnosis Psychosis Pertinent Medical Hx/Surgical Hx HTN, PUD/GERD, Extrapyramidal symptoms, PVD, Duodenal ulcer, Psychosis, Depression, Schizophrenia, Bipolar, Anxiety Subjective Information Pt is a 68-year-old [facility] admitted [facility]/15 c/o increased agitation and aggressive behavior. Per Meal/ Nutrition Activity Record, Pt PO intake 92% meals x 3 days. HT: 57 WT: 139 LB (63.18 kg) BMI: 21.77 (Normal) GI: WNL, Flat, Soft BM: 05/21 x1 I/O: 1020/Not Noted Skin: WNL, Intact, Dryness Marek: 20 Diet Order: Pureed Estimated Energy Needs: ( Geriatric, CBW) 6301-4846 kcals (25-30 kcals/ kg) 63-76g Pro (1.0-1.2 g/kg) 1114-6314 ml (25-30 ml/kg) Pt PO intake 92% meals x 3 days Per Meal/Nutrition Activity Record. Dietary is currently providing an estimated 2229 kcals and 97 gm Pro, per Pt PO intake this is providing an estimated 2050 kcals and 89 gm Pro to meet 100% kcal and 100+% Pro needs- Adequate. Current Diet Order/ Nutrition Support Pureed Pertinent Medications Maalox (PRN), Dulcolax (PRN), Oscal w/Vitamin D, D50w (PRN), Glutose 40% (PRN), Colace, Glucagen (PRN), INS-SS, MOM ( PRN), Theragran, Fleet enema ( PRN) Pertinent Labs 05/21: POC Glucose (last 24 hours) 77, 145 05/18: POC Glucose (last 24 hours) 118, 119, 118 Nutritional Hx/Data Height 1.7 m Height (Calculated Centimeters) 170.2 Current Weight (lbs) 63.049 kg Weight (Calculated Kilograms) 63.0 Weight (Calculated Grams) 95129.3 [place] Body Weight 66.1 kg % [place] Body Weight 96 Body Mass Index (BMI) 21.7 Weight Status Approriate GI Symptoms GI Symptoms None Last BM 05/21 x1 Skin Integrity/Comment: WNL, Intact, Dryness Marek: 20 Current %PO Good (75-100%) Estimated Nutritional Goals BEE in Kcals: Using Current wt Calories/Kcals/Kg 25-30 Kcals Calculated 5980-2438 Protein: Using Current wt Protein g/k.0-1.2 Protein Calculated 63-76 Fluid: ml 1820-4902 ml (25-30 ml/kg) Nutritional Problem 1. Problem Problem Altered nutrition related labs Etiology r/t endocrine dysfunction Signs/Symptoms: aeb 05/21: POC Glucose (last 24 hours) 77, 145 Malnutrition Related to Morbid Obesity Malnutrition related to morbid obesity No Intervention/Recommendation Comments 1.Continue with Pureed diet as ordered. 2.Continue anti-hyperglycemia meds for glucose control per MD order. Expected Outcomes/Goals Expected Outcomes/Goals 1.PO intake to continue to meet 75% of nutritional needs. 2.Monitor PO intake, wt, nutrition related labs, and skin integrity. 3.F/U as low risk in 7 days,
[2019-05-23] MEDS: Calcium Carb/Vit D 500 mg/200 U Tab PO SCH (08:59)
[2019-05-23] MEDS: Benztropine 1 MG TAB PO SCH ×2 (09:00→17:22)
[2019-05-23] MEDS: Multivitamin Tab PO SCH (09:01)
--- NOTE | 2019-05-23 22:51 | Progress Notes ---
DATE: 05/23/2019 PSYCHIATRIC PROGRESS NOTE SUBJECTIVE: Staff was spoken to. The patient is interviewed. Mood is noted to be irritable. Affect is constricted. Insight and judgment at this time are noted to be still impaired. Impulse control is noted to be limited. Coping skills are noted to be limited. The patient has been coming very close to the female staff and has been playing with his genitals. No side effects to the medications are noted. The patient needs to be redirected and the patient seems to be psychotic. PLAN: To continue the patient with the current medications and followup. JOB# [id number]
[2019-05-24] MEDS: INSULIN LISPRO SLIDING SCALE 100 UNITS/ML UNIT SUBQ SCH ×4 (06:31→20:08)
--- NOTE | 2019-05-24 08:01 | General Progress Note ---
Subjective - Review of Systems Service Date: 05/24/19 Subjective: Patient was seen awake, alert. VS T 97.8 P 77 R 18 BP 128/84 Objective - Results Result Diagrams: 05/15/19 19:00 05/15/19 19: Recent Labs: Laboratory Last Values WBC 9.0 Th/cmm (4.8-10.8) 05/15/19 19:00 RBC 5.08 Mil/cmm (3.80-5.80) 05/15/19 19:00 Hgb 15.8 gm/dL (12-16) 05/15/19 19:00 Hct 47.2 % (41.0-60) 05/15/19 19:00 MCV 93.1 fl (80-99) 05/15/19 19:00 MCH 31.0 pg (27.0-31.0) 05/15/19 19: MCHC Differential 33.3 pg (28.0-36.0) 05/15/19:00 RDW 13.1 % (11.5-20.0) 05/15/19: Plt Count 237 Th/cmm (150-400) 05/15/19 19:00 MPV 8.3 fl 05/15/19 19:00 Neutrophils % 61.0 % (40.0-80.0) 05/15/19 19:00 Lymphocytes % 25.3 % (20.0-50.0) 05/15/19 19:00 Monocytes % 9.6 % (2.0-10.0) 05/15/19: Eosinophils % 2.5 % (0.0-5.0) 05/15/19: Basophils % 1.6 % (0.0-2.0) 05/15/19 19:00 PT 10.8 SECONDS (9.5-11.5) 05/15/19 19:00 INR 1.04 (0.5-1.4) 05/15/19 19:00 PTT (Actin FS) 31.0 SECONDS (26.0-38.0) 05/15/19 19:00 Sodium 140 mEq/L (136-145) 05/15/19 19:00 Potassium 4.4 mEq/L (3.5-5.1) 05/15/19 19:00 Chloride 104 mEq/L (98-107) 05/15/19 19:00 Carbon Dioxide 31.1 mEq/L (21.0-31.0) H 05/15/19 19:00 Anion Gap 9.3 (7.0-16.0) 05/15/19 19:00 BUN 22 mg/dL (7-25) 05/15/19 19:00 Creatinine 0.9 mg/dL (0.7-1.3) 05/15/19 19:00 Est GFR ( Amer) > 60.0 ml/min (>90) 05/15/19 19:00 Est GFR (Non-Af Amer) > 60.0 ml/min 05/15/19 19:00 BUN/Creatinine Ratio 24.4 05/15/19 19:00 Glucose 93 mg/dL (70-105) 05/15/19 19:00 POC Glucose 145 MG/DL (70 - 105) H 05/21/19 06:18 Calcium 9.1 mg/dL (8.6-10.3) 05/15/19 19:00 Total Bilirubin 0.4 mg/dL (0.3-1.0) 05/15/19 19:00 AST 15 U/L (13-39) 05/15/19 19:00 ALT 13 U/L (7-52) 05/15/19 19:00 Alkaline Phosphatase 43 U/L (34-104) 05/15/19 19:00 Troponin I < 0.01 ng/mL (0.01-0.05) L 05/15/19 19:00 B-Natriuretic Peptide 9.7 pg/mL (5.0-100.0) 05/15/19 19:00 Total Protein 6.3 gm/dL (6.0-8.3) 05/15/19 19:00 Albumin 3.8 gm/dL (4.2-5.5) L 05/15/19 19:00 Globulin 2.5 gm/dL 05/15/19 19:00 Albumin/Globulin Ratio 1.5 (1.0-1.8) 05/15/19 19:00 Triglycerides 209 mg/dL (<150) H 05/15/19 19:00 Cholesterol 189 mg/dL (<200) 05/15/19 19:00 LDL Cholesterol Direct 130 mg/dL (75-193) 05/15/19 19:00 HDL Cholesterol 36 mg/dL (23-92) 05/15/19 19:00 TSH 2.87 uIU/ml (0.34-5.60) 05/15/19 19:00 Urine Source RANDOM 05/15/19 20:25 Urine Color YELLOW 05/15/19 20:25 Urine Clarity HAZY (CLEAR) 05/15/19 20:25 Urine pH 5.5 (4.6 - 8.0) 05/15/19 20:25 Ur Specific [place] 1.025 (1.005-1.030) 05/15/19 20:25 Urine Protein NEGATIVE mg/dL (NEGATIVE) 05/15/19 20:25 Urine Glucose (UA) NEGATIVE mg/dL (NEGATIVE) 05/15/19 20:25 Urine Ketones NEGATIVE mg/dL (NEGATIVE) 05/15/19 20:25 Urine Blood NEGATIVE (NEGATIVE) 05/15/19 20:25 Urine Nitrate NEGATIVE (NEGATIVE) 05/15/19 20:25 Urine Bilirubin NEGATIVE (NEGATIVE) 05/15/19 20:25 Urine Urobilinogen 0.2 E.U./dL (0.2 - 1.0) 05/15/19 20:25 Ur Leukocyte Esterase NEGATIVE (NEGATIVE) 05/15/19 20:25 Urine RBC 0-2 /hpf (0-5) H 05/15/19 20:25 Urine WBC 2-5 /hpf (0-5) 05/15/19 20:25 Ur Epithelial Cells FEW /lpf (FEW) 05/15/19 20:25 Urine Bacteria FEW /hpf (NONE SEEN) 05/15/19 20:25 Urine Mucus FEW /lpf (FEW) 05/15/19 20:25 Urine Opiates Screen NEGATIVE (NEGATIVE) 05/15/19 20:25 Urine Methadone Screen NEGATIVE (NEGATIVE) 05/15/19 20:25 Ur Barbiturates Screen NEGATIVE (NEGATIVE) 05/15/19 20:25 Ur Tricyclics Screen NEGATIVE (NEGATIVE) 05/15/19 20:25 Ur Phencyclidine Scrn NEGATIVE (NEGATIVE) 05/15/19 20:25 Amphetamines Screen NEGATIVE (NEGATIVE) 05/15/19 20:25 U Methamphetamines Scrn NEGATIVE (NEGATIVE) 05/15/19 20:25 U Benzodiazepines Scrn NEGATIVE (NEGATIVE) 05/15/19 20:25 U Cocaine Metab Screen NEGATIVE (NEGATIVE) 05/15/19 20:25 U Cannabinoids Screen NEGATIVE (NEGATIVE) 05/15/19 20:25 RPR NONREACTIVE (NONREACTIVE) 05/15/19 19:00 - Physical Exam Vitals and I&O: Vital Signs Temp 97.8 F 05/23/19 14:00 Pulse 77 05/23/19 14:00 Resp 18 05/23/19 14:00 BP 128/84 05/23/19 14:00 Pulse Ox 93 05/23/19 14:00 Intake & Output 05/23/19 05/24/19 05/24/19 18:59 06:59 18:59 Intake Total 1200 120 Balance 1200 120 Intake: Oral 1200 120 Other: # Voids 3 # Bowel Movements 1 Active Medications: Current Medications Acetaminophen (Tylenol) 650 mg PO Q4HR PRN PRN Reason: Mild Pain / Temp above 100 Stop: 07/14/19 22:10 Al Hydrox/Mg Hydrox/Simethicone (Maalox) 30 ml PO Q4HR PRN PRN Reason: GI DISTRESS Stop: 07/14/19 22:10 Benztropine Mesylate (Cogentin) 2 mg PO BID [facility] Stop: 07/15/19 08:59 Last Admin: 05/23/19 17:22 Dose: 2 mg Bisacodyl (Dulcolax 10 Mg Supp) 10 mg RC DAILY PRN PRN Reason: Constipation Stop: 07/14/19 22:20 Calcium/Vitamin D (Oscal W/Vitamin D) 1 tab PO DAILY [facility] Stop: 07/15/19 08:59 Last Admin: 05/23/19 08:59 Dose: 1 tab Dextrose (D50w) 50 ml IVP PRN PRN PRN Reason: Blood Glucose less than 70 Stop: 07/14/19 22:28 Dextrose (Glutose 40%) 18.75 gm PO PRN PRN PRN Reason: Blood Glucose less than 70 Stop: 07/14/19 22:28 Divalproex Sodium (Depakote Dr) 250 mg PO BID [facility]; Protocol Stop: 07/15/19 08:59 Last Admin: 05/23/19 17:21 Dose: 250 mg Docusate Sodium (Colace) 100 mg PO DAILY [facility] Stop: 07/15/19 08:59 Last Admin: 05/23/19 09:00 Dose: 100 mg Glucagon (Glucagen) 1 mg IM PRN PRN PRN Reason: Blood Glucose less than 70 Stop: 07/14/19 22:28 Insulin Human Lispro (Humalog Insulin Sliding Scale) 0 units SUBQ ACHS [facility]; Protocol Stop: 07/15/19 07:29 Last Admin: 05/24/19 06:31 Dose: Not Given Lorazepam (Ativan) 0.5 mg PO Q4HR PRN; Protocol PRN Reason: Agitation Stop: 06/14/19 21:09 Last Admin: 05/24/19 02:15 Dose: 0.5 mg Magnesium Hydroxide (Milk Of Magnesia) 30 ml PO HS PRN PRN Reason: Constipation Multivitamins/Vitamin C (Theragran) 1 tab PO DAILY [facility] Stop: 07/15/19 08:59 Last Admin: 05/23/19 09:01 Dose: 1 tab Quetiapine Fumarate (Seroquel) 25 mg PO BID [facility]; Protocol Stop: 07/17/19 08:59 Last Admin: 05/23/19 17:22 Dose: 25 mg Sodium Phosphate (Fleet Enema) 135 ml RC Q2D PRN PRN Reason: Constipation Stop: 07/14/19 22:20 Zolpidem Tartrate (Ambien) 5 mg PO HS PRN PRN Reason: Insomnia Stop: 07/14/19 22:10 Last Admin: 05/22/19 22:24 Dose: 5 mg General: Alert, Oriented x3, No acute distress HEENT: Atraumatic, PERRLA, EOMI Neck: Supple Cardiovascular: Regular rate, Normal S1, Normal S2 Lungs: Clear to auscultation Abdomen: Bowel sounds, Soft Extremities: no Clubbing, no Cyanosis, no Edema Neurological: Normal gait - Procedures Procedures: Procedures Procedure Code Date COLONOSCOPY 45.23 06/28/11 ESOPHAGOGASTRODUODENOSCOPY [EGD] W/CLOSED BIOPSY 45.16 06/28/11 Assessment/Plan - Assessment Assessment: psychosis PUD/GERD HTN improved Anemia Depression Schizophrenia - Plan Plan: BP slightly elevated will add clonidine PRN Nutritional Asmnt/Malnutr-PDOC - Dietary Evaluation Malnutrition Findings (Please click <Entered> for more info): Nutritional Asmnt/Malnutrition Start: 05/21/19 12: 19 Text: Status: Complete Freq: Protocol: Document 05/21/19 12:19 VANITA (Rec: 05/21/19 12:22 [email or web address]) Nutritional Asmnt/Malnutrition Patient General Information Nutritional Screening Low Risk Diagnosis Psychosis Pertinent Medical Hx/Surgical Hx HTN, PUD/GERD, Extrapyramidal symptoms, PVD, Duodenal ulcer, Psychosis, Depression, Schizophrenia, Bipolar, Anxiety Subjective Information Pt is a 68-year-old [facility]/15 c/o increased agitation and aggressive behavior. Per Meal/ Nutrition Activity Record, Pt PO intake 92% meals x 3 days. HT: 57 WT: 139 LB (63.18 kg) BMI: 21.77 (Normal) GI: WNL, Flat, Soft BM: 05/21 x1 I/O: 1020/Not Noted Skin: WNL, Intact, Dryness Marek: 20 Diet Order: Pureed Estimated Energy Needs: ( Geriatric, CBW) 4576-8574 kcals (25-30 kcals/ kg) 63-76g Pro (1.0-1.2 g/kg) 5175-5542 ml (25-30 ml/kg) Pt PO intake 92% meals x 3 days Per Meal/Nutrition Activity Record. Dietary is currently providing an estimated 2229 kcals and 97 gm Pro, per Pt PO intake this is providing an estimated 2050 kcals and 89 gm Pro to meet 100% kcal and 100+% Pro needs- Adequate. Current Diet Order/ Nutrition Support Pureed Pertinent Medications Maalox (PRN), Dulcolax (PRN), Oscal w/Vitamin D, D50w (PRN), Glutose 40% (PRN), Colace, Glucagen (PRN), INS-SS, MOM ( PRN), Theragran, Fleet enema ( PRN) Pertinent Labs 05/21: POC Glucose (last 24 hours) 77, 145 05/18: POC Glucose (last 24 hours) 118, 119, 118 Nutritional Hx/Data Height 1.7 m Height (Calculated Centimeters) 170.2 Current Weight (lbs) 63.049 kg Weight (Calculated Kilograms) 63.0 Weight (Calculated Grams) 76389.3 [place] Body Weight 66.1 kg % [place] Body Weight 96 Body Mass Index (BMI) 21.7 Weight Status Approriate GI Symptoms GI Symptoms None Last BM 05/21 x1 Skin Integrity/Comment: WNL, Intact, Dryness Marek: 20 Current %PO Good (75-100%) Estimated Nutritional Goals BEE in Kcals: Using Current wt Calories/Kcals/Kg 25-30 Kcals Calculated 6608-7911 Protein: Using Current wt Protein g/k.0-1.2 Protein Calculated 63-76 Fluid: ml 1544-0848 ml (25-30 ml/kg) Nutritional Problem 1. Problem Problem Altered nutrition related labs Etiology r/t endocrine dysfunction Signs/Symptoms: aeb 05/21: POC Glucose (last 24 hours) 77, 145 Malnutrition Related to Morbid Obesity Malnutrition related to morbid obesity No Intervention/Recommendation Comments 1.Continue with Pureed diet as ordered. 2.Continue anti-hyperglycemia meds for glucose control per MD order. Expected Outcomes/Goals Expected Outcomes/Goals 1.PO intake to continue to meet 75% of nutritional needs. 2.Monitor PO intake, wt, nutrition related labs, and skin integrity. 3.F/U as low risk in 7 days,
[2019-05-24] MEDS: Multivitamin Tab PO SCH (08:24)
[2019-05-24] MEDS: Benztropine 1 MG TAB PO SCH ×2 (08:24→16:59)
[2019-05-24] MEDS: Calcium Carb/Vit D 500 mg/200 U Tab PO SCH (08:24)
--- NOTE | 2019-05-24 14:02 | Progress Notes ---
DATE: 05/24/2019 SUBJECTIVE: Staff was spoken to. The patient is interviewed. Mood is noted to be irritable. Affect is constricted. The patient has been very disruptive and has been walking naked. The patient is also reported to be sexually preoccupied. Insight and judgment at this time are noted to be still impaired. Impulse control is noted to be poor. In view of the acute agitation and psychosis, it is decided to increase the dose on the Seroquel to 50 mg twice a day and follow the patient up with the supportive therapy. Please note that the patient is not ready to be discharged to be a lower level of care. JOB# [id number]
[2019-05-25] MEDS: INSULIN LISPRO SLIDING SCALE 100 UNITS/ML UNIT SUBQ SCH ×4 (06:59→20:00)
--- NOTE | 2019-05-25 08:27 | General Progress Note ---
Subjective - Review of Systems Service Date: 05/25/19 Subjective: Patient was seen awake, alert. VS T 98.2 P 75 R 20 BP 161/60 Objective - Results Result Diagrams: 05/15/19 19:00 05/15/19 19: Recent Labs: Laboratory Last Values WBC 9.0 Th/cmm (4.8-10.8) 05/15/19 19:00 RBC 5.08 Mil/cmm (3.80-5.80) 05/15/19 19: Hgb 15.8 gm/dL (12-16) 05/15/19 19:00 Hct 47.2 % (41.0-60) 05/15/19 19:00 MCV 93.1 fl (80-99) 05/15/19 19:00 MCH 31.0 pg (27.0-31.0) 05/15/19: MCHC Differential 33.3 pg (28.0-36.0) 05/15/19: RDW 13.1 % (11.5-20.0) 05/15/19: Plt Count 237 Th/cmm (150-400) 05/15/19 19:00 MPV 8.3 fl 05/15/19 19:00 Neutrophils % 61.0 % (40.0-80.0) 05/15/19 19:00 Lymphocytes % 25.3 % (20.0-50.0) 05/15/19 19:00 Monocytes % 9.6 % (2.0-10.0) 05/15/19: Eosinophils % 2.5 % (0.0-5.0) 05/15/19: Basophils % 1.6 % (0.0-2.0) 05/15/19 19:00 PT 10.8 SECONDS (9.5-11.5) 05/15/19 19:00 INR 1.04 (0.5-1.4) 05/15/19 19:00 PTT (Actin FS) 31.0 SECONDS (26.0-38.0) 05/15/19 19:00 Sodium 140 mEq/L (136-145) 05/15/19 19:00 Potassium 4.4 mEq/L (3.5-5.1) 05/15/19 19:00 Chloride 104 mEq/L (98-107) 05/15/19 19:00 Carbon Dioxide 31.1 mEq/L (21.0-31.0) H 05/15/19 19:00 Anion Gap 9.3 (7.0-16.0) 05/15/19 19:00 BUN 22 mg/dL (7-25) 05/15/19 19:00 Creatinine 0.9 mg/dL (0.7-1.3) 05/15/19 19:00 Est GFR ( Amer) > 60.0 ml/min (>90) 05/15/19 19:00 Est GFR (Non-Af Amer) > 60.0 ml/min 05/15/19 19:00 BUN/Creatinine Ratio 24.4 05/15/19 19:00 Glucose 93 mg/dL (70-105) 05/15/19 19:00 POC Glucose 102 MG/DL (70 - 105) 05/24/19 20:04 Calcium 9.1 mg/dL (8.6-10.3) 05/15/19 19:00 Total Bilirubin 0.4 mg/dL (0.3-1.0) 05/15/19 19:00 AST 15 U/L (13-39) 05/15/19 19:00 ALT 13 U/L (7-52) 05/15/19 19:00 Alkaline Phosphatase 43 U/L (34-104) 05/15/19 19:00 Troponin I < 0.01 ng/mL (0.01-0.05) L 05/15/19 19:00 B-Natriuretic Peptide 9.7 pg/mL (5.0-100.0) 05/15/19 19:00 Total Protein 6.3 gm/dL (6.0-8.3) 05/15/19 19:00 Albumin 3.8 gm/dL (4.2-5.5) L 05/15/19 19:00 Globulin 2.5 gm/dL 05/15/19 19:00 Albumin/Globulin Ratio 1.5 (1.0-1.8) 05/15/19 19:00 Triglycerides 209 mg/dL (<150) H 05/15/19 19:00 Cholesterol 189 mg/dL (<200) 05/15/19 19:00 LDL Cholesterol Direct 130 mg/dL (75-193) 05/15/19 19:00 HDL Cholesterol 36 mg/dL (23-92) 05/15/19 19:00 TSH 2.87 uIU/ml (0.34-5.60) 05/15/19 19:00 Urine Source RANDOM 05/15/19 20:25 Urine Color YELLOW 05/15/19 20:25 Urine Clarity HAZY (CLEAR) 05/15/19 20:25 Urine pH 5.5 (4.6 - 8.0) 05/15/19 20:25 Ur Specific [place] 1.025 (1.005-1.030) 05/15/19 20:25 Urine Protein NEGATIVE mg/dL (NEGATIVE) 05/15/19 20:25 Urine Glucose (UA) NEGATIVE mg/dL (NEGATIVE) 05/15/19 20:25 Urine Ketones NEGATIVE mg/dL (NEGATIVE) 05/15/19 20:25 Urine Blood NEGATIVE (NEGATIVE) 05/15/19 20:25 Urine Nitrate NEGATIVE (NEGATIVE) 05/15/19 20:25 Urine Bilirubin NEGATIVE (NEGATIVE) 05/15/19 20:25 Urine Urobilinogen 0.2 E.U./dL (0.2 - 1.0) 05/15/19 20:25 Ur Leukocyte Esterase NEGATIVE (NEGATIVE) 05/15/19 20:25 Urine RBC 0-2 /hpf (0-5) H 05/15/19 20:25 Urine WBC 2-5 /hpf (0-5) 05/15/19 20:25 Ur Epithelial Cells FEW /lpf (FEW) 05/15/19 20:25 Urine Bacteria FEW /hpf (NONE SEEN) 05/15/19 20:25 Urine Mucus FEW /lpf (FEW) 05/15/19 20:25 Urine Opiates Screen NEGATIVE (NEGATIVE) 05/15/19 20:25 Urine Methadone Screen NEGATIVE (NEGATIVE) 05/15/19 20:25 Ur Barbiturates Screen NEGATIVE (NEGATIVE) 05/15/19 20:25 Ur Tricyclics Screen NEGATIVE (NEGATIVE) 05/15/19 20:25 Ur Phencyclidine Scrn NEGATIVE (NEGATIVE) 05/15/19 20:25 Amphetamines Screen NEGATIVE (NEGATIVE) 05/15/19 20:25 U Methamphetamines Scrn NEGATIVE (NEGATIVE) 05/15/19 20:25 U Benzodiazepines Scrn NEGATIVE (NEGATIVE) 05/15/19 20:25 U Cocaine Metab Screen NEGATIVE (NEGATIVE) 05/15/19 20:25 U Cannabinoids Screen NEGATIVE (NEGATIVE) 05/15/19 20:25 RPR NONREACTIVE (NONREACTIVE) 05/15/19 19:00 - Physical Exam Vitals and I&O: Vital Signs Temp 98.2 F 05/24/19 14:00 Pulse 75 05/24/19 14:00 Resp 20 05/24/19 16:18 BP 161/60 05/24/19 14:00 Pulse Ox 93 05/24/19 14:00 Intake & Output 05/24/19 05/25/19 05/25/19 18:59 06:59 18:59 Intake Total 1200 Balance 1200 Intake: Oral 1200 Active Medications: Current Medications Acetaminophen (Tylenol) 650 mg PO Q4HR PRN PRN Reason: Mild Pain / Temp above 100 Stop: 07/14/19 22:10 Al Hydrox/Mg Hydrox/Simethicone (Maalox) 30 ml PO Q4HR PRN PRN Reason: GI DISTRESS Stop: 07/14/19 22:10 Benztropine Mesylate (Cogentin) 2 mg PO BID [facility] Stop: 07/15/19 08:59 Last Admin: 05/24/19 16:59 Dose: Not Given Bisacodyl (Dulcolax 10 Mg Supp) 10 mg RC DAILY PRN PRN Reason: Constipation Stop: 07/14/19 22:20 Calcium/Vitamin D (Oscal W/Vitamin D) 1 tab PO DAILY [facility] Stop: 07/15/19 08:59 Last Admin: 05/24/19 08:24 Dose: 1 tab Dextrose (D50w) 50 ml IVP PRN PRN PRN Reason: Blood Glucose less than 70 Stop: 07/14/19 22:28 Dextrose (Glutose 40%) 18.75 gm PO PRN PRN PRN Reason: Blood Glucose less than 70 Stop: 07/14/19 22:28 Divalproex Sodium (Depakote Dr) 250 mg PO BID [facility]; Protocol Stop: 07/15/19 08:59 Last Admin: 05/24/19 17:00 Dose: Not Given Docusate Sodium (Colace) 100 mg PO DAILY [facility] Stop: 07/15/19 08:59 Last Admin: 05/24/19 08:24 Dose: 100 mg Glucagon (Glucagen) 1 mg IM PRN PRN PRN Reason: Blood Glucose less than 70 Stop: 07/14/19 22:28 Insulin Human Lispro (Humalog Insulin Sliding Scale) 0 units SUBQ ACHS [facility]; Protocol Stop: 07/15/19 07:29 Last Admin: 05/25/19 06:59 Dose: Not Given Lorazepam (Ativan) 0.5 mg PO Q4HR PRN; Protocol PRN Reason: Agitation Stop: 06/14/19 21:09 Last Admin: 05/24/19 08:24 Dose: 0.5 mg Magnesium Hydroxide (Milk Of Magnesia) 30 ml PO HS PRN PRN Reason: Constipation Multivitamins/Vitamin C (Theragran) 1 tab PO DAILY [facility] Stop: 07/15/19 08:59 Last Admin: 05/24/19 08:24 Dose: 1 tab Quetiapine Fumarate (Seroquel) 50 mg PO BID [facility]; Protocol Stop: 07/23/19 16:59 Last Admin: 05/24/19 16:59 Dose: Not Given Sodium Phosphate (Fleet Enema) 135 ml RC Q2D PRN PRN Reason: Constipation Stop: 07/14/19 22:20 Zolpidem Tartrate (Ambien) 5 mg PO HS PRN PRN Reason: Insomnia Stop: 07/14/19 22:10 Last Admin: 05/22/19 22:24 Dose: 5 mg General: Alert, Oriented x3, No acute distress HEENT: Atraumatic, PERRLA, EOMI Neck: Supple Cardiovascular: Regular rate, Normal S1, Normal S2 Lungs: Clear to auscultation Abdomen: Bowel sounds, Soft Extremities: no Clubbing, no Cyanosis, no Edema Neurological: Normal gait - Procedures Procedures: Procedures Procedure Code Date COLONOSCOPY 45.23 06/28/11 ESOPHAGOGASTRODUODENOSCOPY [EGD] W/CLOSED BIOPSY 45.16 06/28/11 Assessment/Plan - Assessment Assessment: psychosis PUD/GERD HTN slightly elevated Anemia Depression Schizophrenia - Plan Plan: BP slightly elevated will add clonidine PRN Nutritional Asmnt/Malnutr-PDOC - Dietary Evaluation Malnutrition Findings (Please click <Entered> for more info): Nutritional Asmnt/Malnutrition Start: 05/21/19 12: 19 Text: Status: Complete Freq: Protocol: Document 05/21/19 12:19 VANITA (Rec: 05/21/19 12:22 [email or web address]) Nutritional Asmnt/Malnutrition Patient General Information Nutritional Screening Low Risk Diagnosis Psychosis Pertinent Medical Hx/Surgical Hx HTN, PUD/GERD, Extrapyramidal symptoms, PVD, Duodenal ulcer, Psychosis, Depression, Schizophrenia, Bipolar, Anxiety Subjective Information Pt is a 68-year-old male from [facility] admitted on 05/15 c/o increased agitation and aggressive behavior. Per Meal/ Nutrition Activity Record, Pt PO intake 92% meals x 3 days. HT: 57 WT: 139 LB (63.18 kg) BMI: 21.77 (Normal) GI: WNL, Flat, Soft BM: 05/21 x1 I/O: 1020/Not Noted Skin: WNL, Intact, Dryness Marek: 20 Diet Order: Pureed Estimated Energy Needs: ( Geriatric, CBW) 9369-3955 kcals (25-30 kcals/ kg) 63-76g Pro (1.0-1.2 g/kg) 9262-0872 ml (25-30 ml/kg) Pt PO intake 92% meals x 3 days Per Meal/Nutrition Activity Record. Dietary is currently providing an estimated 2229 kcals and 97 gm Pro, per Pt PO intake this is providing an estimated 2050 kcals and 89 gm Pro to meet 100% kcal and 100+% Pro needs- Adequate. Current Diet Order/ Nutrition Support Pureed Pertinent Medications Maalox (PRN), Dulcolax (PRN), Oscal w/Vitamin D, D50w (PRN), Glutose 40% (PRN), Colace, Glucagen (PRN), INS-SS, MOM ( PRN), Theragran, Fleet enema ( PRN) Pertinent Labs 05/21: POC Glucose (last 24 hours) 77, 145 05/18: POC Glucose (last 24 hours) 118, 119, 118 Nutritional Hx/Data Height 1.7 m Height (Calculated Centimeters) 170.2 Current Weight (lbs) 63.049 kg Weight (Calculated Kilograms) 63.0 Weight (Calculated Grams) 02900.3 [place] Body Weight 66.1 kg % [place] Body Weight 96 Body Mass Index (BMI) 21.7 Weight Status Approriate GI Symptoms GI Symptoms None Last BM 05/21 x1 Skin Integrity/Comment: WNL, Intact, Dryness Marek: 20 Current %PO Good (75-100%) Estimated Nutritional Goals BEE in Kcals: Using Current wt Calories/Kcals/Kg 25-30 Kcals Calculated 3150-7814 Protein: Using Current wt Protein g/k.0-1.2 Protein Calculated 63-76 Fluid: ml 0828-0916 ml (25-30 ml/kg) Nutritional Problem 1. Problem Problem Altered nutrition related labs Etiology r/t endocrine dysfunction Signs/Symptoms: aeb 05/21: POC Glucose (last 24 hours) 77, 145 Malnutrition Related to Morbid Obesity Malnutrition related to morbid obesity No Intervention/Recommendation Comments 1.Continue with Pureed diet as ordered. 2.Continue anti-hyperglycemia meds for glucose control per MD order. Expected Outcomes/Goals Expected Outcomes/Goals 1.PO intake to continue to meet 75% of nutritional needs. 2.Monitor PO intake, wt, nutrition related labs, and skin integrity. 3.F/U as low risk in 7 days,
[2019-05-25] MEDS: Benztropine 1 MG TAB PO SCH ×2 (09:39→17:03)
[2019-05-25] MEDS: Calcium Carb/Vit D 500 mg/200 U Tab PO SCH (09:39)
[2019-05-25] MEDS: Multivitamin Tab PO SCH (09:39)
--- NOTE | 2019-05-25 23:15 | Progress Notes ---
DATE: 05/25/2019 PSYCHIATRIC PROGRESS NOTE SUBJECTIVE: Staff was spoken to. The patient is interviewed. Mood is noted to be irritable. Affect is constricted. The patient's insight and judgment are noted to be still impaired. Impulse control is noted to be poor. Coping skills are noted to be poor. The patient has no insight into his illness. The patient has been pacing most of the time on the unit. The patient has been disrobing, but could be redirectable today. ASSESSMENT: The patient is still psychotic and impulsive. PLAN: To continue the patient with the current medications and followup. JOB# [id number]
[2019-05-26] MEDS: INSULIN LISPRO SLIDING SCALE 100 UNITS/ML UNIT SUBQ SCH ×4 (06:55→21:33)
--- NOTE | 2019-05-26 08:14 | General Progress Note ---
Subjective - Review of Systems Service Date: 05/26/19 Subjective: Patient was seen awake, alert. VS T 96.8 P 68 R 18 BP 110/59 Objective - Results Result Diagrams: 05/15/19 19:00 05/15/19 19: Recent Labs: Laboratory Last Values WBC 9.0 Th/cmm (4.8-10.8) 05/15/19 19:00 RBC 5.08 Mil/cmm (3.80-5.80) 05/15/19 19:00 Hgb 15.8 gm/dL (12-16) 05/15/19 19:00 Hct 47.2 % (41.0-60) 05/15/19 19:00 MCV 93.1 fl (80-99) 05/15/19 19:00 MCH 31.0 pg (27.0-31.0) 05/15/19: MCHC Differential 33.3 pg (28.0-36.0) 05/15/19:00 RDW 13.1 % (11.5-20.0) 05/15/19: Plt Count 237 Th/cmm (150-400) 05/15/19 19:00 MPV 8.3 fl 05/15/19 19:00 Neutrophils % 61.0 % (40.0-80.0) 05/15/19 19:00 Lymphocytes % 25.3 % (20.0-50.0) 05/15/19 19:00 Monocytes % 9.6 % (2.0-10.0) 05/15/19:00 Eosinophils % 2.5 % (0.0-5.0) 05/15/19: Basophils % 1.6 % (0.0-2.0) 05/15/19 19:00 PT 10.8 SECONDS (9.5-11.5) 05/15/19 19:00 INR 1.04 (0.5-1.4) 05/15/19 19:00 PTT (Actin FS) 31.0 SECONDS (26.0-38.0) 05/15/19 19:00 Sodium 140 mEq/L (136-145) 05/15/19 19:00 Potassium 4.4 mEq/L (3.5-5.1) 05/15/19 19:00 Chloride 104 mEq/L (98-107) 05/15/19 19:00 Carbon Dioxide 31.1 mEq/L (21.0-31.0) H 05/15/19 19:00 Anion Gap 9.3 (7.0-16.0) 05/15/19 19:00 BUN 22 mg/dL (7-25) 05/15/19 19:00 Creatinine 0.9 mg/dL (0.7-1.3) 05/15/19 19:00 Est GFR ( Amer) > 60.0 ml/min (>90) 05/15/19 19:00 Est GFR (Non-Af Amer) > 60.0 ml/min 05/15/19 19:00 BUN/Creatinine Ratio 24.4 05/15/19 19:00 Glucose 93 mg/dL (70-105) 05/15/19 19:00 POC Glucose 102 MG/DL (70 - 105) 05/24/19 20:04 Calcium 9.1 mg/dL (8.6-10.3) 05/15/19 19:00 Total Bilirubin 0.4 mg/dL (0.3-1.0) 05/15/19 19:00 AST 15 U/L (13-39) 05/15/19 19:00 ALT 13 U/L (7-52) 05/15/19 19:00 Alkaline Phosphatase 43 U/L (34-104) 05/15/19 19:00 Troponin I < 0.01 ng/mL (0.01-0.05) L 05/15/19 19:00 B-Natriuretic Peptide 9.7 pg/mL (5.0-100.0) 05/15/19 19:00 Total Protein 6.3 gm/dL (6.0-8.3) 05/15/19 19:00 Albumin 3.8 gm/dL (4.2-5.5) L 05/15/19 19:00 Globulin 2.5 gm/dL 05/15/19 19:00 Albumin/Globulin Ratio 1.5 (1.0-1.8) 05/15/19 19:00 Triglycerides 209 mg/dL (<150) H 05/15/19 19:00 Cholesterol 189 mg/dL (<200) 05/15/19 19:00 LDL Cholesterol Direct 130 mg/dL (75-193) 05/15/19 19:00 HDL Cholesterol 36 mg/dL (23-92) 05/15/19 19:00 TSH 2.87 uIU/ml (0.34-5.60) 05/15/19 19:00 Urine Source RANDOM 05/15/19 20:25 Urine Color YELLOW 05/15/19 20:25 Urine Clarity HAZY (CLEAR) 05/15/19 20:25 Urine pH 5.5 (4.6 - 8.0) 05/15/19 20:25 Ur Specific [place] 1.025 (1.005-1.030) 05/15/19 20:25 Urine Protein NEGATIVE mg/dL (NEGATIVE) 05/15/19 20:25 Urine Glucose (UA) NEGATIVE mg/dL (NEGATIVE) 05/15/19 20:25 Urine Ketones NEGATIVE mg/dL (NEGATIVE) 05/15/19 20:25 Urine Blood NEGATIVE (NEGATIVE) 05/15/19 20:25 Urine Nitrate NEGATIVE (NEGATIVE) 05/15/19 20:25 Urine Bilirubin NEGATIVE (NEGATIVE) 05/15/19 20:25 Urine Urobilinogen 0.2 E.U./dL (0.2 - 1.0) 05/15/19 20:25 Ur Leukocyte Esterase NEGATIVE (NEGATIVE) 05/15/19 20:25 Urine RBC 0-2 /hpf (0-5) H 05/15/19 20:25 Urine WBC 2-5 /hpf (0-5) 05/15/19 20:25 Ur Epithelial Cells FEW /lpf (FEW) 05/15/19 20:25 Urine Bacteria FEW /hpf (NONE SEEN) 05/15/19 20:25 Urine Mucus FEW /lpf (FEW) 05/15/19 20:25 Urine Opiates Screen NEGATIVE (NEGATIVE) 05/15/19 20:25 Urine Methadone Screen NEGATIVE (NEGATIVE) 05/15/19 20:25 Ur Barbiturates Screen NEGATIVE (NEGATIVE) 05/15/19 20:25 Ur Tricyclics Screen NEGATIVE (NEGATIVE) 05/15/19 20:25 Ur Phencyclidine Scrn NEGATIVE (NEGATIVE) 05/15/19 20:25 Amphetamines Screen NEGATIVE (NEGATIVE) 05/15/19 20:25 U Methamphetamines Scrn NEGATIVE (NEGATIVE) 05/15/19 20:25 U Benzodiazepines Scrn NEGATIVE (NEGATIVE) 05/15/19 20:25 U Cocaine Metab Screen NEGATIVE (NEGATIVE) 05/15/19 20:25 U Cannabinoids Screen NEGATIVE (NEGATIVE) 05/15/19 20:25 RPR NONREACTIVE (NONREACTIVE) 05/15/19 19:00 - Physical Exam Vitals and I&O: Vital Signs Temp 96.8 F 05/25/19 20:00 Pulse 68 05/25/19 20:00 Resp 20 05/25/19 20:00 BP 110/59 05/25/19 20:00 Pulse Ox 95 05/25/19 20:00 Active Medications: Current Medications Acetaminophen (Tylenol) 650 mg PO Q4HR PRN PRN Reason: Mild Pain / Temp above 100 Stop: 07/14/19 22:10 Al Hydrox/Mg Hydrox/Simethicone (Maalox) 30 ml PO Q4HR PRN PRN Reason: GI DISTRESS Stop: 07/14/19 22:10 Benztropine Mesylate (Cogentin) 2 mg PO BID [facility] Stop: 07/15/19 08:59 Last Admin: 05/25/19 17:03 Dose: 2 mg Bisacodyl (Dulcolax 10 Mg Supp) 10 mg RC DAILY PRN PRN Reason: Constipation Stop: 07/14/19 22:20 Calcium/Vitamin D (Oscal W/Vitamin D) 1 tab PO DAILY [facility] Stop: 07/15/19 08:59 Last Admin: 05/25/19 09:39 Dose: 1 tab Dextrose (D50w) 50 ml IVP PRN PRN PRN Reason: Blood Glucose less than 70 Stop: 07/14/19 22:28 Dextrose (Glutose 40%) 18.75 gm PO PRN PRN PRN Reason: Blood Glucose less than 70 Stop: 07/14/19 22:28 Divalproex Sodium (Depakote Dr) 250 mg PO BID [facility]; Protocol Stop: 07/15/19 08:59 Last Admin: 05/25/19 17:03 Dose: 250 mg Docusate Sodium (Colace) 100 mg PO DAILY [facility] Stop: 07/15/19 08:59 Last Admin: 05/25/19 09:39 Dose: 100 mg Glucagon (Glucagen) 1 mg IM PRN PRN PRN Reason: Blood Glucose less than 70 Stop: 07/14/19 22:28 Insulin Human Lispro (Humalog Insulin Sliding Scale) 0 units SUBQ ACHS [facility]; Protocol Stop: 07/15/19 07:29 Last Admin: 05/26/19 06:55 Dose: Not Given Lorazepam (Ativan) 0.5 mg PO Q4HR PRN; Protocol PRN Reason: Agitation Stop: 06/14/19 21:09 Last Admin: 05/24/19 08:24 Dose: 0.5 mg Magnesium Hydroxide (Milk Of Magnesia) 30 ml PO HS PRN PRN Reason: Constipation Multivitamins/Vitamin C (Theragran) 1 tab PO DAILY [facility] Stop: 07/15/19 08:59 Last Admin: 05/25/19 09:39 Dose: 1 tab Quetiapine Fumarate (Seroquel) 50 mg PO BID [facility]; Protocol Stop: 07/23/19 16:59 Last Admin: 05/25/19 17:03 Dose: 50 mg Sodium Phosphate (Fleet Enema) 135 ml RC Q2D PRN PRN Reason: Constipation Stop: 07/14/19 22:20 Zolpidem Tartrate (Ambien) 5 mg PO HS PRN PRN Reason: Insomnia Stop: 07/14/19 22:10 Last Admin: 05/25/19 20:48 Dose: 5 mg General: Alert, Oriented x3, No acute distress HEENT: Atraumatic, PERRLA, EOMI Neck: Supple Cardiovascular: Regular rate, Normal S1, Normal S2 Lungs: Clear to auscultation Abdomen: Bowel sounds, Soft Extremities: no Clubbing, no Cyanosis, no Edema Neurological: Normal gait - Procedures Procedures: Procedures Procedure Code Date COLONOSCOPY 45.06/28/11 ESOPHAGOGASTRODUODENOSCOPY [EGD] W/CLOSED BIOPSY 45.16 06/28/11 Assessment/Plan - Assessment Assessment: psychosis PUD/GERD HTN slightly elevated Anemia Depression Schizophrenia - Plan Plan: BP slightly elevated will add clonidine PRN Nutritional Asmnt/Malnutr-PDOC - Dietary Evaluation Malnutrition Findings (Please click <Entered> for more info): Nutritional Asmnt/Malnutrition Start: 05/21/19 12: 19 Text: Status: Complete Freq: Protocol: Document 05/21/19 12:19 VANITA (Rec: 05/21/19 12:22 VANITA [email or web address]) Nutritional Asmnt/Malnutrition Patient General Information Nutritional Screening Low Risk Diagnosis Psychosis Pertinent Medical Hx/Surgical Hx HTN, PUD/GERD, Extrapyramidal symptoms, PVD, Duodenal ulcer, Psychosis, Depression, Schizophrenia, Bipolar, Anxiety Subjective Information Pt is a 68-year-old male from [facility] admitted on 05/15 c/o increased agitation and aggressive behavior. Per Meal/ Nutrition Activity Record, Pt PO intake 92% meals x 3 days. HT: 57 WT: 139 LB (63.18 kg) BMI: 21.77 (Normal) GI: WNL, Flat, Soft BM: 05/21 x1 I/O: 1020/Not Noted Skin: WNL, Intact, Dryness Marek: 20 Diet Order: Pureed Estimated Energy Needs: ( Geriatric, CBW) 4825-2191 kcals (25-30 kcals/ kg) 63-76g Pro (1.0-1.2 g/kg) 0829-7764 ml (25-30 ml/kg) Pt PO intake 92% meals x 3 days Per Meal/Nutrition Activity Record. Dietary is currently providing an estimated 2229 kcals and 97 gm Pro, per Pt PO intake this is providing an estimated 2050 kcals and 89 gm Pro to meet 100% kcal and 100+% Pro needs- Adequate. Current Diet Order/ Nutrition Support Pureed Pertinent Medications Maalox (PRN), Dulcolax (PRN), Oscal w/Vitamin D, D50w (PRN), Glutose 40% (PRN), Colace, Glucagen (PRN), INS-SS, MOM ( PRN), Theragran, Fleet enema ( PRN) Pertinent Labs 05/21: POC Glucose (last 24 hours) 77, 145 05/18: POC Glucose (last 24 hours) 118, 119, 118 Nutritional Hx/Data Height 1.7 m Height (Calculated Centimeters) 170.2 Current Weight (lbs) 63.049 kg Weight (Calculated Kilograms) 63.0 Weight (Calculated Grams) 45736.3 [place] Body Weight 66.1 kg % [place] Body Weight 96 Body Mass Index (BMI) 21.7 Weight Status Approriate GI Symptoms GI Symptoms None Last BM 05/21 x1 Skin Integrity/Comment: WNL, Intact, Dryness Marek: 20 Current %PO Good (75-100%) Estimated Nutritional Goals BEE in Kcals: Using Current wt Calories/Kcals/Kg 25-30 Kcals Calculated 1243-5678 Protein: Using Current wt Protein g/k.0-1.2 Protein Calculated 63-76 Fluid: ml 4116-3868 ml (25-30 ml/kg) Nutritional Problem 1. Problem Problem Altered nutrition related labs Etiology r/t endocrine dysfunction Signs/Symptoms: aeb 05/21: POC Glucose (last 24 hours) 77, 145 Malnutrition Related to Morbid Obesity Malnutrition related to morbid obesity No Intervention/Recommendation Comments 1.Continue with Pureed diet as ordered. 2.Continue anti-hyperglycemia meds for glucose control per MD order. Expected Outcomes/Goals Expected Outcomes/Goals 1.PO intake to continue to meet 75% of nutritional needs. 2.Monitor PO intake, wt, nutrition related labs, and skin integrity. 3.F/U as low risk in 7 days,
[2019-05-26] MEDS: Calcium Carb/Vit D 500 mg/200 U Tab PO SCH (09:14)
[2019-05-26] MEDS: Multivitamin Tab PO SCH (09:14)
[2019-05-26] MEDS: Benztropine 1 MG TAB PO SCH ×2 (09:15→17:52)
--- NOTE | 2019-05-26 13:38 | Progress Notes ---
DATE: 05/26/2019 SUBJECTIVE: Staff was spoken to. The patient is interviewed. Mood is noted to be irritable. Affect is constricted. Insight and judgment at this time are noted to be still impaired. Impulse control is noted to be limited. Coping skills are noted to be limited. The patient is still testing the limit. The patient has been still very intrusive and impulsive and has been getting into the face of the staff members. The patient needs to be redirected. ASSESSMENT: The patient is still grossly psychotic and impulsive. PLAN: To continue the patient with the supportive therapy and followup. JOB# [id number]
[2019-05-27] MEDS: INSULIN LISPRO SLIDING SCALE 100 UNITS/ML UNIT SUBQ SCH ×4 (06:53→20:39)
--- NOTE | 2019-05-27 08:08 | General Progress Note ---
Subjective - Review of Systems Service Date: 05/27/19 Subjective: Patient was seen awake, alert. VS T 98.3 P 69 R 19 BP 132/95 Objective - Results Result Diagrams: 05/15/19 19:00 05/15/19 19: Recent Labs: Laboratory Last Values WBC 9.0 Th/cmm (4.8-10.8) 05/15/19 19:00 RBC 5.08 Mil/cmm (3.80-5.80) 05/15/19 19:00 Hgb 15.8 gm/dL (12-16) 05/15/19 19:00 Hct 47.2 % (41.0-60) 05/15/19 19:00 MCV 93.1 fl (80-99) 05/15/19 19:00 MCH 31.0 pg (27.0-31.0) 05/15/19 19: MCHC Differential 33.3 pg (28.0-36.0) 05/15/19:00 RDW 13.1 % (11.5-20.0) 05/15/19: Plt Count 237 Th/cmm (150-400) 05/15/19 19:00 MPV 8.3 fl 05/15/19 19:00 Neutrophils % 61.0 % (40.0-80.0) 05/15/19 19:00 Lymphocytes % 25.3 % (20.0-50.0) 05/15/19 19:00 Monocytes % 9.6 % (2.0-10.0) 05/15/19:00 Eosinophils % 2.5 % (0.0-5.0) 05/15/19: Basophils % 1.6 % (0.0-2.0) 05/15/19 19:00 PT 10.8 SECONDS (9.5-11.5) 05/15/19 19:00 INR 1.04 (0.5-1.4) 05/15/19 19:00 PTT (Actin FS) 31.0 SECONDS (26.0-38.0) 05/15/19 19:00 Sodium 140 mEq/L (136-145) 05/15/19 19:00 Potassium 4.4 mEq/L (3.5-5.1) 05/15/19 19:00 Chloride 104 mEq/L (98-107) 05/15/19 19:00 Carbon Dioxide 31.1 mEq/L (21.0-31.0) H 05/15/19 19:00 Anion Gap 9.3 (7.0-16.0) 05/15/19 19:00 BUN 22 mg/dL (7-25) 05/15/19 19:00 Creatinine 0.9 mg/dL (0.7-1.3) 05/15/19 19:00 Est GFR ( Amer) > 60.0 ml/min (>90) 05/15/19 19:00 Est GFR (Non-Af Amer) > 60.0 ml/min 05/15/19 19:00 BUN/Creatinine Ratio 24.4 05/15/19 19:00 Glucose 93 mg/dL (70-105) 05/15/19 19:00 POC Glucose 96 MG/DL (70 - 105) 05/26/19 21:28 Calcium 9.1 mg/dL (8.6-10.3) 05/15/19 19:00 Total Bilirubin 0.4 mg/dL (0.3-1.0) 05/15/19 19:00 AST 15 U/L (13-39) 05/15/19 19:00 ALT 13 U/L (7-52) 05/15/19 19:00 Alkaline Phosphatase 43 U/L (34-104) 05/15/19 19:00 Troponin I < 0.01 ng/mL (0.01-0.05) L 05/15/19 19:00 B-Natriuretic Peptide 9.7 pg/mL (5.0-100.0) 05/15/19 19:00 Total Protein 6.3 gm/dL (6.0-8.3) 05/15/19 19:00 Albumin 3.8 gm/dL (4.2-5.5) L 05/15/19 19:00 Globulin 2.5 gm/dL 05/15/19 19:00 Albumin/Globulin Ratio 1.5 (1.0-1.8) 05/15/19 19:00 Triglycerides 209 mg/dL (<150) H 05/15/19 19:00 Cholesterol 189 mg/dL (<200) 05/15/19 19:00 LDL Cholesterol Direct 130 mg/dL (75-193) 05/15/19 19:00 HDL Cholesterol 36 mg/dL (23-92) 05/15/19 19:00 TSH 2.87 uIU/ml (0.34-5.60) 05/15/19 19:00 Urine Source RANDOM 05/15/19 20:25 Urine Color YELLOW 05/15/19 20:25 Urine Clarity HAZY (CLEAR) 05/15/19 20:25 Urine pH 5.5 (4.6 - 8.0) 05/15/19 20:25 Ur Specific [place] 1.025 (1.005-1.030) 05/15/19 20:25 Urine Protein NEGATIVE mg/dL (NEGATIVE) 05/15/19 20:25 Urine Glucose (UA) NEGATIVE mg/dL (NEGATIVE) 05/15/19 20:25 Urine Ketones NEGATIVE mg/dL (NEGATIVE) 05/15/19 20:25 Urine Blood NEGATIVE (NEGATIVE) 05/15/19 20:25 Urine Nitrate NEGATIVE (NEGATIVE) 05/15/19 20:25 Urine Bilirubin NEGATIVE (NEGATIVE) 05/15/19 20:25 Urine Urobilinogen 0.2 E.U./dL (0.2 - 1.0) 05/15/19 20:25 Ur Leukocyte Esterase NEGATIVE (NEGATIVE) 05/15/19 20:25 Urine RBC 0-2 /hpf (0-5) H 05/15/19 20:25 Urine WBC 2-5 /hpf (0-5) 05/15/19 20:25 Ur Epithelial Cells FEW /lpf (FEW) 05/15/19 20:25 Urine Bacteria FEW /hpf (NONE SEEN) 05/15/19 20:25 Urine Mucus FEW /lpf (FEW) 05/15/19 20:25 Urine Opiates Screen NEGATIVE (NEGATIVE) 05/15/19 20:25 Urine Methadone Screen NEGATIVE (NEGATIVE) 05/15/19 20:25 Ur Barbiturates Screen NEGATIVE (NEGATIVE) 05/15/19 20:25 Ur Tricyclics Screen NEGATIVE (NEGATIVE) 05/15/19 20:25 Ur Phencyclidine Scrn NEGATIVE (NEGATIVE) 05/15/19 20:25 Amphetamines Screen NEGATIVE (NEGATIVE) 05/15/19 20:25 U Methamphetamines Scrn NEGATIVE (NEGATIVE) 05/15/19 20:25 U Benzodiazepines Scrn NEGATIVE (NEGATIVE) 05/15/19 20:25 U Cocaine Metab Screen NEGATIVE (NEGATIVE) 05/15/19 20:25 U Cannabinoids Screen NEGATIVE (NEGATIVE) 05/15/19 20:25 RPR NONREACTIVE (NONREACTIVE) 05/15/19 19:00 - Physical Exam Vitals and I&O: Vital Signs Temp 98.3 F 05/26/19 14:25 Pulse 69 05/26/19 14:25 Resp 18 05/26/19 14:25 BP 132/95 05/26/19 14:25 Pulse Ox 97 05/26/19 14:25 Intake & Output 05/26/19 05/27/19 05/27/19 18:59 06:59 18:59 Intake Total 120 Balance 120 Intake: Oral 120 Other: # Voids 3 3 # Bowel Movements 1 Active Medications: Current Medications Acetaminophen (Tylenol) 650 mg PO Q4HR PRN PRN Reason: Mild Pain / Temp above 100 Stop: 07/14/19 22:10 Al Hydrox/Mg Hydrox/Simethicone (Maalox) 30 ml PO Q4HR PRN PRN Reason: GI DISTRESS Stop: 07/14/19 22:10 Benztropine Mesylate (Cogentin) 2 mg PO BID [facility] Stop: 07/15/19 08:59 Last Admin: 05/26/19 17:52 Dose: 2 mg Bisacodyl (Dulcolax 10 Mg Supp) 10 mg RC DAILY PRN PRN Reason: Constipation Stop: 07/14/19 22:20 Calcium/Vitamin D (Oscal W/Vitamin D) 1 tab PO DAILY [facility] Stop: 07/15/19 08:59 Last Admin: 05/26/19 09:14 Dose: 1 tab Dextrose (D50w) 50 ml IVP PRN PRN PRN Reason: Blood Glucose less than 70 Stop: 07/14/19 22:28 Dextrose (Glutose 40%) 18.75 gm PO PRN PRN PRN Reason: Blood Glucose less than 70 Stop: 07/14/19 22:28 Divalproex Sodium (Depakote Dr) 250 mg PO BID [facility]; Protocol Stop: 07/15/19 08:59 Last Admin: 05/26/19 17:52 Dose: 250 mg Docusate Sodium (Colace) 100 mg PO DAILY [facility] Stop: 07/15/19 08:59 Last Admin: 05/26/19 09:14 Dose: 100 mg Glucagon (Glucagen) 1 mg IM PRN PRN PRN Reason: Blood Glucose less than 70 Stop: 07/14/19 22:28 Insulin Human Lispro (Humalog Insulin Sliding Scale) 0 units SUBQ ACHS [facility]; Protocol Stop: 07/15/19 07:29 Last Admin: 05/27/19 06:53 Dose: Not Given Lorazepam (Ativan) 0.5 mg PO Q4HR PRN; Protocol PRN Reason: Agitation Stop: 06/14/19 21:09 Last Admin: 05/24/19 08:24 Dose: 0.5 mg Magnesium Hydroxide (Milk Of Magnesia) 30 ml PO HS PRN PRN Reason: Constipation Multivitamins/Vitamin C (Theragran) 1 tab PO DAILY [facility] Stop: 07/15/19 08:59 Last Admin: 05/26/19 09:14 Dose: 1 tab Quetiapine Fumarate (Seroquel) 50 mg PO BID [facility]; Protocol Stop: 07/23/19 16:59 Last Admin: 05/26/19 17:52 Dose: 50 mg Sodium Phosphate (Fleet Enema) 135 ml RC Q2D PRN PRN Reason: Constipation Stop: 07/14/19 22:20 Zolpidem Tartrate (Ambien) 5 mg PO HS PRN PRN Reason: Insomnia Stop: 07/14/19 22:10 Last Admin: 05/25/19 20:48 Dose: 5 mg General: Alert, Oriented x3, No acute distress HEENT: Atraumatic, PERRLA, EOMI Neck: Supple Cardiovascular: Regular rate, Normal S1, Normal S2 Lungs: Clear to auscultation Abdomen: Bowel sounds, Soft Extremities: no Clubbing, no Cyanosis, no Edema Neurological: Normal gait - Procedures Procedures: Procedures Procedure Code Date COLONOSCOPY 45.23 06/28/11 ESOPHAGOGASTRODUODENOSCOPY [EGD] W/CLOSED BIOPSY 45.16 06/28/11 Assessment/Plan - Assessment Assessment: psychosis PUD/GERD HTN slightly elevated Anemia Depression Schizophrenia - Plan Plan: BP slightly elevated will add clonidine PRN Nutritional Asmnt/Malnutr-PDOC - Dietary Evaluation Malnutrition Findings (Please click <Entered> for more info): Nutritional Asmnt/Malnutrition Start: 05/21/19 12: 19 Text: Status: Complete Freq: Protocol: Document 05/21/19 12:19 VANITA (Rec: 05/21/19 12:22 VANITA [email or web address]) Nutritional Asmnt/Malnutrition Patient General Information Nutritional Screening Low Risk Diagnosis Psychosis Pertinent Medical Hx/Surgical Hx HTN, PUD/GERD, Extrapyramidal symptoms, PVD, Duodenal ulcer, Psychosis, Depression, Schizophrenia, Bipolar, Anxiety Subjective Information Pt is a 68-year-old male from [facility] admitted on [facility] c/o increased agitation and aggressive behavior. Per Meal/ Nutrition Activity Record, Pt PO intake 92% meals x 3 days. HT: 57 WT: 139 LB (63.18 kg) BMI: 21.77 (Normal) GI: WNL, Flat, Soft BM: 05/21 x1 I/O: 1020/Not Noted Skin: WNL, Intact, Dryness Marek: 20 Diet Order: Pureed Estimated Energy Needs: ( Geriatric, CBW) 5361-4680 kcals (25-30 kcals/ kg) 63-76g Pro (1.0-1.2 g/kg) 7589-7999 ml (25-30 ml/kg) Pt PO intake 92% meals x 3 days Per Meal/Nutrition Activity Record. Dietary is currently providing an estimated 2229 kcals and 97 gm Pro, per Pt PO intake this is providing an estimated 2050 kcals and 89 gm Pro to meet 100% kcal and 100+% Pro needs- Adequate. Current Diet Order/ Nutrition Support Pureed Pertinent Medications Maalox (PRN), Dulcolax (PRN), Oscal w/Vitamin D, D50w (PRN), Glutose 40% (PRN), Colace, Glucagen (PRN), INS-SS, MOM ( PRN), Theragran, Fleet enema ( PRN) Pertinent Labs 05/21: POC Glucose (last 24 hours) 77, 145 05/18: POC Glucose (last 24 hours) 118, 119, 118 Nutritional Hx/Data Height 1.7 m Height (Calculated Centimeters) 170.2 Current Weight (lbs) 63.049 kg Weight (Calculated Kilograms) 63.0 Weight (Calculated Grams) 62700.3 [place] Body Weight 66.1 kg % [place] Body Weight 96 Body Mass Index (BMI) 21.7 Weight Status Approriate GI Symptoms GI Symptoms None Last BM 05/21 x1 Skin Integrity/Comment: WNL, Intact, Dryness Marek: 20 Current %PO Good (75-100%) Estimated Nutritional Goals BEE in Kcals: Using Current wt Calories/Kcals/Kg 25-30 Kcals Calculated 9830-9110 Protein: Using Current wt Protein g/k.0-1.2 Protein Calculated 63-76 Fluid: ml 2376-2047 ml (25-30 ml/kg) Nutritional Problem 1. Problem Problem Altered nutrition related labs Etiology r/t endocrine dysfunction Signs/Symptoms: aeb 05/21: POC Glucose (last 24 hours) 77, 145 Malnutrition Related to Morbid Obesity Malnutrition related to morbid obesity No Intervention/Recommendation Comments 1.Continue with Pureed diet as ordered. 2.Continue anti-hyperglycemia meds for glucose control per MD order. Expected Outcomes/Goals Expected Outcomes/Goals 1.PO intake to continue to meet 75% of nutritional needs. 2.Monitor PO intake, wt, nutrition related labs, and skin integrity. 3.F/U as low risk in 7 days,
[2019-05-27] MEDS: Calcium Carb/Vit D 500 mg/200 U Tab PO SCH (09:32)
[2019-05-27] MEDS: Benztropine 1 MG TAB PO SCH ×2 (09:32→16:42)
[2019-05-27] MEDS: Multivitamin Tab PO SCH (09:32)
--- NOTE | 2019-05-27 16:56 | Progress Notes ---
DATE: 05/27/2019 PSYCHIATRIC PROGRESS NOTE SUBJECTIVE: Staff was spoken to. The patient is interviewed. Mood is noted to be less irritable today. Insight and judgment are noted to be still impaired. The patient needs to be redirected. His aggressive behavior seems to be under control today. No side effects to the medications are noted. ASSESSMENT: The patient's psychosis is resolving. PLAN: To continue the patient with the supportive therapy, encouraged the patient to verbalize the concerns rather than to act out. Plan to continue the patient with his current medications and followup. JOB# [id number]
[2019-05-28] MEDS: INSULIN LISPRO SLIDING SCALE 100 UNITS/ML UNIT SUBQ SCH ×4 (06:51→20:52)
--- NOTE | 2019-05-28 07:50 | General Progress Note ---
Subjective - Review of Systems Service Date: 05/28/19 Subjective: Patient was seen awake, alert. VS T 97 P 87 R 20 BP 142/99 Objective - Results Result Diagrams: 05/15/19 19:00 05/15/19 19: Recent Labs: Laboratory Last Values WBC 9.0 Th/cmm (4.8-10.8) 05/15/19 19:00 RBC 5.08 Mil/cmm (3.80-5.80) 05/15/19 19:00 Hgb 15.8 gm/dL (12-16) 05/15/19 19:00 Hct 47.2 % (41.0-60) 05/15/19 19:00 MCV 93.1 fl (80-99) 05/15/19: MCH 31.0 pg (27.0-31.0) 05/15/19: MCHC Differential 33.3 pg (28.0-36.0) 05/15/19: RDW 13.1 % (11.5-20.0) 05/15/19: Plt Count 237 Th/cmm (150-400) 05/15/19 19:00 MPV 8.3 fl 05/15/19 19:00 Neutrophils % 61.0 % (40.0-80.0) 05/15/19:00 Lymphocytes % 25.3 % (20.0-50.0) 05/15/19 19: Monocytes % 9.6 % (2.0-10.0) 05/15/19:00 Eosinophils % 2.5 % (0.0-5.0) 05/15/19: Basophils % 1.6 % (0.0-2.0) 05/15/19 19:00 PT 10.8 SECONDS (9.5-11.5) 05/15/19 19:00 INR 1.04 (0.5-1.4) 05/15/19 19:00 PTT (Actin FS) 31.0 SECONDS (26.0-38.0) 05/15/19 19:00 Sodium 140 mEq/L (136-145) 05/15/19 19:00 Potassium 4.4 mEq/L (3.5-5.1) 05/15/19 19: Chloride 104 mEq/L (98-107) 05/15/19 19:00 Carbon Dioxide 31.1 mEq/L (21.0-31.0) H 05/15/19 19:00 Anion Gap 9.3 (7.0-16.0) 05/15/19 19:00 BUN 22 mg/dL (7-25) 05/15/19 19:00 Creatinine 0.9 mg/dL (0.7-1.3) 05/15/19 19:00 Est GFR ( Amer) > 60.0 ml/min (>90) 05/15/19 19:00 Est GFR (Non-Af Amer) > 60.0 ml/min 05/15/19 19:00 BUN/Creatinine Ratio 24.4 05/15/19 19:00 Glucose 93 mg/dL (70-105) 05/15/19 19:00 POC Glucose 117 MG/DL (70 - 105) H 05/27/19 20:33 Calcium 9.1 mg/dL (8.6-10.3) 05/15/19 19:00 Total Bilirubin 0.4 mg/dL (0.3-1.0) 05/15/19 19:00 AST 15 U/L (13-39) 05/15/19 19:00 ALT 13 U/L (7-52) 05/15/19 19:00 Alkaline Phosphatase 43 U/L (34-104) 05/15/19 19:00 Troponin I < 0.01 ng/mL (0.01-0.05) L 05/15/19 19:00 B-Natriuretic Peptide 9.7 pg/mL (5.0-100.0) 05/15/19 19:00 Total Protein 6.3 gm/dL (6.0-8.3) 05/15/19 19:00 Albumin 3.8 gm/dL (4.2-5.5) L 05/15/19 19:00 Globulin 2.5 gm/dL 05/15/19 19:00 Albumin/Globulin Ratio 1.5 (1.0-1.8) 05/15/19 19:00 Triglycerides 209 mg/dL (<150) H 05/15/19 19:00 Cholesterol 189 mg/dL (<200) 05/15/19 19:00 LDL Cholesterol Direct 130 mg/dL (75-193) 08/13/19 19:00 HDL Cholesterol 36 mg/dL (23-92) 05/15/19 19:00 TSH 2.87 uIU/ml (0.34-5.60) 05/15/19 19:00 Urine Source RANDOM 05/15/19 20:25 Urine Color YELLOW 05/15/19 20:25 Urine Clarity HAZY (CLEAR) 05/15/19 20:25 Urine pH 5.5 (4.6 - 8.0) 05/15/19 20:25 Ur Specific [place] 1.025 (1.005-1.030) 05/15/19 20:25 Urine Protein NEGATIVE mg/dL (NEGATIVE) 05/15/19 20:25 Urine Glucose (UA) NEGATIVE mg/dL (NEGATIVE) 05/15/19 20:25 Urine Ketones NEGATIVE mg/dL (NEGATIVE) 05/15/19 20:25 Urine Blood NEGATIVE (NEGATIVE) 05/15/19 20:25 Urine Nitrate NEGATIVE (NEGATIVE) 05/15/19 20:25 Urine Bilirubin NEGATIVE (NEGATIVE) 05/15/19 20:25 Urine Urobilinogen 0.2 E.U./dL (0.2 - 1.0) 05/15/19 20:25 Ur Leukocyte Esterase NEGATIVE (NEGATIVE) 05/15/19 20:25 Urine RBC 0-2 /hpf (0-5) H 05/15/19 20:25 Urine WBC 2-5 /hpf (0-5) 05/15/19 20:25 Ur Epithelial Cells FEW /lpf (FEW) 05/15/19 20:25 Urine Bacteria FEW /hpf (NONE SEEN) 05/15/19 20:25 Urine Mucus FEW /lpf (FEW) 05/15/19 20:25 Urine Opiates Screen NEGATIVE (NEGATIVE) 05/15/19 20:25 Urine Methadone Screen NEGATIVE (NEGATIVE) 05/15/19 20:25 Ur Barbiturates Screen NEGATIVE (NEGATIVE) 05/15/19 20:25 Ur Tricyclics Screen NEGATIVE (NEGATIVE) 05/15/19 20:25 Ur Phencyclidine Scrn NEGATIVE (NEGATIVE) 05/15/19 20:25 Amphetamines Screen NEGATIVE (NEGATIVE) 05/15/19 20:25 U Methamphetamines Scrn NEGATIVE (NEGATIVE) 05/15/19 20:25 U Benzodiazepines Scrn NEGATIVE (NEGATIVE) 05/15/19 20:25 U Cocaine Metab Screen NEGATIVE (NEGATIVE) 05/15/19 20:25 U Cannabinoids Screen NEGATIVE (NEGATIVE) 05/15/19 20:25 RPR NONREACTIVE (NONREACTIVE) 05/15/19 19:00 - Physical Exam Vitals and I&O: Vital Signs Temp 97 F 05/27/19 14:12 Pulse 87 05/27/19 14:12 Resp 20 05/27/19 14:12 BP 142/99 05/27/19 14:12 Pulse Ox 100 05/27/19 14:12 Intake & Output 05/27/19 05/28/19 05/28/19 18:59 06:59 18:59 Intake Total 120 Balance 120 Intake: Oral 120 Other: # Voids 3 3 # Bowel Movements 1 Stool Characteristics Formed Formed Brown Brown Active Medications: Current Medications Acetaminophen (Tylenol) 650 mg PO Q4HR PRN PRN Reason: Mild Pain / Temp above 100 Stop: 07/14/19 22:10 Al Hydrox/Mg Hydrox/Simethicone (Maalox) 30 ml PO Q4HR PRN PRN Reason: GI DISTRESS Stop: 07/14/19 22:10 Benztropine Mesylate (Cogentin) 2 mg PO BID [facility] Stop: 07/15/19 08:59 Last Admin: 05/27/19 16:42 Dose: 2 mg Bisacodyl (Dulcolax 10 Mg Supp) 10 mg RC DAILY PRN PRN Reason: Constipation Stop: 07/14/19 22:20 Calcium/Vitamin D (Oscal W/Vitamin D) 1 tab PO DAILY [facility] Stop: 07/15/19 08:59 Last Admin: 05/27/19 09:32 Dose: 1 tab Dextrose (D50w) 50 ml IVP PRN PRN PRN Reason: Blood Glucose less than 70 Stop: 07/14/19 22:28 Dextrose (Glutose 40%) 18.75 gm PO PRN PRN PRN Reason: Blood Glucose less than 70 Stop: 07/14/19 22:28 Divalproex Sodium (Depakote Dr) 250 mg PO BID [facility]; Protocol Stop: 07/15/19 08:59 Last Admin: 05/27/19 16:42 Dose: 250 mg Docusate Sodium (Colace) 100 mg PO DAILY [facility] Stop: 07/15/19 08:59 Last Admin: 05/27/19 09:32 Dose: 100 mg Glucagon (Glucagen) 1 mg IM PRN PRN PRN Reason: Blood Glucose less than 70 Stop: 07/14/19 22:28 Insulin Human Lispro (Humalog Insulin Sliding Scale) 0 units SUBQ ACHS [facility]; Protocol Stop: 07/15/19 07:29 Last Admin: 05/28/19 06:51 Dose: Not Given Lorazepam (Ativan) 0.5 mg PO Q4HR PRN; Protocol PRN Reason: Agitation Stop: 06/14/19 21:09 Last Admin: 05/24/19 08:24 Dose: 0.5 mg Magnesium Hydroxide (Milk Of Magnesia) 30 ml PO HS PRN PRN Reason: Constipation Multivitamins/Vitamin C (Theragran) 1 tab PO DAILY [facility] Stop: 07/15/19 08:59 Last Admin: 05/27/19 09:32 Dose: 1 tab Quetiapine Fumarate (Seroquel) 50 mg PO BID [facility]; Protocol Stop: 07/23/19 16:59 Last Admin: 05/27/19 16:42 Dose: 50 mg Sodium Phosphate (Fleet Enema) 135 ml RC Q2D PRN PRN Reason: Constipation Stop: 07/14/19 22:20 Zolpidem Tartrate (Ambien) 5 mg PO HS PRN PRN Reason: Insomnia Stop: 07/14/19 22:10 Last Admin: 05/25/19 20:48 Dose: 5 mg General: Alert, Oriented x3, No acute distress HEENT: Atraumatic, PERRLA, EOMI Neck: Supple Cardiovascular: Regular rate, Normal S1, Normal S2 Lungs: Clear to auscultation Abdomen: Bowel sounds, Soft Extremities: no Clubbing, no Cyanosis, no Edema Neurological: Normal gait - Procedures Procedures: Procedures Procedure Code Date COLONOSCOPY 45.06/28/11 ESOPHAGOGASTRODUODENOSCOPY [EGD] W/CLOSED BIOPSY 45.16 06/28/11 Assessment/Plan - Assessment Assessment: psychosis PUD/GERD HTN slightly elevated Anemia Depression Schizophrenia - Plan Plan: BP slightly elevated will add clonidine PRN Nutritional Asmnt/Malnutr-PDOC - Dietary Evaluation Malnutrition Findings (Please click <Entered> for more info): Nutritional Asmnt/Malnutrition Start: 05/21/19 12: 19 Text: Status: Complete Freq: Protocol: Document 08/19/19 12:19 VANITA (Rec: 05/21/19 12:22 [email or web address] [email or web address]) Nutritional Asmnt/Malnutrition Patient General Information Nutritional Screening Low Risk Diagnosis Psychosis Pertinent Medical Hx/Surgical Hx HTN, PUD/GERD, Extrapyramidal symptoms, PVD, Duodenal ulcer, Psychosis, Depression, Schizophrenia, Bipolar, Anxiety Subjective Information Pt [facility] a 68[facility] c/o increased agitation and aggressive behavior. Per Meal/ Nutrition Activity Record, Pt PO intake 92% meals x 3 days. HT: 57 WT: 139 LB (63.18 kg) BMI: 21.77 (Normal) GI: WNL, Flat, Soft BM: 05/21 x1 I/O: 1020/Not Noted Skin: WNL, Intact, Dryness Marek: 20 Diet Order: Pureed Estimated Energy Needs: ( Geriatric, CBW) 7446-8597 kcals (25-30 kcals/ kg) 63-76g Pro (1.0-1.2 g/kg) 2726-3173 ml (25-30 ml/kg) Pt PO intake 92% meals x 3 days Per Meal/Nutrition Activity Record. Dietary is currently providing an estimated 2229 kcals and 97 gm Pro, per Pt PO intake this is providing an estimated 2050 kcals and 89 gm Pro to meet 100% kcal and 100+% Pro needs- Adequate. Current Diet Order/ Nutrition Support Pureed Pertinent Medications Maalox (PRN), Dulcolax (PRN), Oscal w/Vitamin D, D50w (PRN), Glutose 40% (PRN), Colace, Glucagen (PRN), INS-SS, MOM ( PRN), Theragran, Fleet enema ( PRN) Pertinent Labs 05/21: POC Glucose (last 24 hours) 77, 145 05/18: POC Glucose (last 24 hours) 118, 119, 118 Nutritional Hx/Data Height 1.7 m Height (Calculated Centimeters) 170.2 Current Weight (lbs) 63.049 kg Weight (Calculated Kilograms) 63.0 Weight (Calculated Grams) 25947.3 [place] Body Weight 66.1 kg % [place] Body Weight 96 Body Mass Index (BMI) 21.7 Weight Status Approriate GI Symptoms GI Symptoms None Last BM 05/21 x1 Skin Integrity/Comment: WNL, Intact, Dryness Marek: 20 Current %PO Good (75-100%) Estimated Nutritional Goals BEE in Kcals: Using Current wt Calories/Kcals/Kg 25-30 Kcals Calculated 4307-8085 Protein: Using Current wt Protein g/k.0-1.2 Protein Calculated 63-76 Fluid: ml 8076-3489 ml (25-30 ml/kg) Nutritional Problem 1. Problem Problem Altered nutrition related labs Etiology r/t endocrine dysfunction Signs/Symptoms: aeb 05/21: POC Glucose (last 24 hours) 77, 145 Malnutrition Related to Morbid Obesity Malnutrition related to morbid obesity No Intervention/Recommendation Comments 1.Continue with Pureed diet as ordered. 2.Continue anti-hyperglycemia meds for glucose control per MD order. Expected Outcomes/Goals Expected Outcomes/Goals 1.PO intake to continue to meet 75% of nutritional needs. 2.Monitor PO intake, wt, nutrition related labs, and skin integrity. 3.F/U as low risk in 7 days,
[2019-05-28] MEDS: Multivitamin Tab PO SCH (09:27)
[2019-05-28] MEDS: Benztropine 1 MG TAB PO SCH ×2 (09:48→18:05)
[2019-05-28] MEDS: Calcium Carb/Vit D 500 mg/200 U Tab PO SCH (09:58)
--- NOTE | 2019-05-29 00:58 | Progress Notes ---
DATE: 05/28/2019 PSYCHIATRIC PROGRESS NOTE SUBJECTIVE: Staff was spoken to. The patient is interviewed. Mood is noted to be irritable. Affect is constricted. Insight and judgment are noted to be still impaired. Impulse control is noted to be poor. The patient is pacing most of the time on the unit. The patient needs to be redirected. Coping skills are noted to be still poor. No aggressive behavior is noted. The sexualized behavior has been coming under control. ASSESSMENT: The patient's impulsivity is coming under control. PLAN: To continue the patient with the supportive therapy and followup. JOB# [id number]
[2019-05-29] MEDS: INSULIN LISPRO SLIDING SCALE 100 UNITS/ML UNIT SUBQ SCH (06:33)
--- NOTE | 2019-05-29 07:56 | General Progress Note ---
Subjective - Review of Systems Service Date: 05/29/19 Subjective: Patient was seen awake, alert. VS T 98.2 P 81 R 20 BP 151/72 Objective - Results Result Diagrams: 05/15/19 19:00 05/15/19 19: Recent Labs: Laboratory Last Values WBC 9.0 Th/cmm (4.8-10.8) 05/15/19 19:00 RBC 5.08 Mil/cmm (3.80-5.80) 05/15/19 19:00 Hgb 15.8 gm/dL (12-16) 05/15/19 19:00 Hct 47.2 % (41.0-60) 05/15/19 19:00 MCV 93.1 fl (80-99) 05/15/19 19:00 MCH 31.0 pg (27.0-31.0) 05/15/19 19: MCHC Differential 33.3 pg (28.0-36.0) 05/15/19: RDW 13.1 % (11.5-20.0) 05/15/19: Plt Count 237 Th/cmm (150-400) 05/15/19 19:00 MPV 8.3 fl 05/15/19 19:00 Neutrophils % 61.0 % (40.0-80.0) 05/15/19 19:00 Lymphocytes % 25.3 % (20.0-50.0) 05/15/19 19:00 Monocytes % 9.6 % (2.0-10.0) 05/15/19: Eosinophils % 2.5 % (0.0-5.0) 05/15/19: Basophils % 1.6 % (0.0-2.0) 05/15/19 19:00 PT 10.8 SECONDS (9.5-11.5) 05/15/19 19:00 INR 1.04 (0.5-1.4) 05/15/19 19:00 PTT (Actin FS) 31.0 SECONDS (26.0-38.0) 05/15/19 19:00 Sodium 140 mEq/L (136-145) 05/15/19 19:00 Potassium 4.4 mEq/L (3.5-5.1) 05/15/19 19:00 Chloride 104 mEq/L (98-107) 05/15/19 19:00 Carbon Dioxide 31.1 mEq/L (21.0-31.0) H 05/15/19 19:00 Anion Gap 9.3 (7.0-16.0) 05/15/19 19:00 BUN 22 mg/dL (7-25) 05/15/19 19:00 Creatinine 0.9 mg/dL (0.7-1.3) 05/15/19 19:00 Est GFR ( Amer) > 60.0 ml/min (>90) 05/15/19 19:00 Est GFR (Non-Af Amer) > 60.0 ml/min 05/15/19 19:00 BUN/Creatinine Ratio 24.4 05/15/19 19:00 Glucose 93 mg/dL (70-105) 05/15/19 19:00 POC Glucose 117 MG/DL (70 - 105) H 05/27/19 20:33 Calcium 9.1 mg/dL (8.6-10.3) 05/15/19 19:00 Total Bilirubin 0.4 mg/dL (0.3-1.0) 05/15/19 19:00 AST 15 U/L (13-39) 05/15/19 19:00 ALT 13 U/L (7-52) 05/15/19 19:00 Alkaline Phosphatase 43 U/L (34-104) 05/15/19 19:00 Troponin I < 0.01 ng/mL (0.01-0.05) L 05/15/19 19:00 B-Natriuretic Peptide 9.7 pg/mL (5.0-100.0) 05/15/19 19:00 Total Protein 6.3 gm/dL (6.0-8.3) 05/15/19 19:00 Albumin 3.8 gm/dL (4.2-5.5) L 05/15/19 19:00 Globulin 2.5 gm/dL 05/15/19 19:00 Albumin/Globulin Ratio 1.5 (1.0-1.8) 05/15/19 19:00 Triglycerides 209 mg/dL (<150) H 05/15/19 19:00 Cholesterol 189 mg/dL (<200) 05/15/19 19:00 LDL Cholesterol Direct 130 mg/dL (75-193) 05/15/19 19:00 HDL Cholesterol 36 mg/dL (23-92) 05/15/19 19:00 TSH 2.87 uIU/ml (0.34-5.60) 05/15/19 19:00 Urine Source RANDOM 05/15/19 20:25 Urine Color YELLOW 05/15/19 20:25 Urine Clarity HAZY (CLEAR) 05/15/19 20:25 Urine pH 5.5 (4.6 - 8.0) 05/15/19 20:25 Ur Specific [place] 1.025 (1.005-1.030) 05/15/19 20:25 Urine Protein NEGATIVE mg/dL (NEGATIVE) 05/15/19 20:25 Urine Glucose (UA) NEGATIVE mg/dL (NEGATIVE) 05/15/19 20:25 Urine Ketones NEGATIVE mg/dL (NEGATIVE) 05/15/19 20:25 Urine Blood NEGATIVE (NEGATIVE) 05/15/19 20:25 Urine Nitrate NEGATIVE (NEGATIVE) 05/15/19 20:25 Urine Bilirubin NEGATIVE (NEGATIVE) 05/15/19 20:25 Urine Urobilinogen 0.2 E.U./dL (0.2 - 1.0) 05/15/19 20:25 Ur Leukocyte Esterase NEGATIVE (NEGATIVE) 05/15/19 20:25 Urine RBC 0-2 /hpf (0-5) H 05/15/19 20:25 Urine WBC 2-5 /hpf (0-5) 05/15/19 20:25 Ur Epithelial Cells FEW /lpf (FEW) 05/15/19 20:25 Urine Bacteria FEW /hpf (NONE SEEN) 05/15/19 20:25 Urine Mucus FEW /lpf (FEW) 05/15/19 20:25 Urine Opiates Screen NEGATIVE (NEGATIVE) 05/15/19 20:25 Urine Methadone Screen NEGATIVE (NEGATIVE) 05/15/19 20:25 Ur Barbiturates Screen NEGATIVE (NEGATIVE) 05/15/19 20:25 Ur Tricyclics Screen NEGATIVE (NEGATIVE) 05/15/19 20:25 Ur Phencyclidine Scrn NEGATIVE (NEGATIVE) 05/15/19 20:25 Amphetamines Screen NEGATIVE (NEGATIVE) 05/15/19 20:25 U Methamphetamines Scrn NEGATIVE (NEGATIVE) 05/15/19 20:25 U Benzodiazepines Scrn NEGATIVE (NEGATIVE) 05/15/19 20:25 U Cocaine Metab Screen NEGATIVE (NEGATIVE) 05/15/19 20:25 U Cannabinoids Screen NEGATIVE (NEGATIVE) 05/15/19 20:25 RPR NONREACTIVE (NONREACTIVE) 05/15/19 19:00 - Physical Exam Vitals and I&O: Vital Signs Temp 0 F 05/29/19 06:00 Pulse 81 05/28/19 15:39 Resp 20 05/28/19 15:39 BP 151/72 05/28/19 15:39 Pulse Ox 95 05/28/19 15:39 Intake & Output 05/28/19 05/29/19 05/29/19 18:59 06:59 18:59 Intake Total 240 Balance 240 Intake: Oral 240 Other: # Voids 3 # Bowel Movements 0 Stool Characteristics Formed Brown Active Medications: Current Medications Acetaminophen (Tylenol) 650 mg PO Q4HR PRN PRN Reason: Mild Pain / Temp above 100 Stop: 07/14/19 22:10 Al Hydrox/Mg Hydrox/Simethicone (Maalox) 30 ml PO Q4HR PRN PRN Reason: GI DISTRESS Stop: 07/14/19 22:10 Benztropine Mesylate (Cogentin) 2 mg PO BID [facility] Stop: 07/15/19 08:59 Last Admin: 05/28/19 18:05 Dose: 2 mg Bisacodyl (Dulcolax 10 Mg Supp) 10 mg RC DAILY PRN PRN Reason: Constipation Stop: 07/14/19 22:20 Calcium/Vitamin D (Oscal W/Vitamin D) 1 tab PO DAILY [facility] Stop: 07/15/19 08:59 Last Admin: 05/28/19 09:58 Dose: Not Given Dextrose (D50w) 50 ml IVP PRN PRN PRN Reason: Blood Glucose less than 70 Stop: 07/14/19 22:28 Dextrose (Glutose 40%) 18.75 gm PO PRN PRN PRN Reason: Blood Glucose less than 70 Stop: 07/14/19 22:28 Divalproex Sodium (Depakote Dr) 250 mg PO BID [facility]; Protocol Stop: 07/15/19 08:59 Last Admin: 05/28/19 18:06 Dose: 250 mg Docusate Sodium (Colace) 100 mg PO DAILY [facility] Stop: 07/15/19 08:59 Last Admin: 05/28/19 09:24 Dose: Not Given Glucagon (Glucagen) 1 mg IM PRN PRN PRN Reason: Blood Glucose less than 70 Stop: 07/14/19 22:28 Insulin Human Lispro (Humalog Insulin Sliding Scale) 0 units SUBQ ACHS [facility]; Protocol Stop: 07/15/19 07:29 Last Admin: 05/29/19 06:33 Dose: Not Given Lorazepam (Ativan) 0.5 mg PO Q4HR PRN; Protocol PRN Reason: Agitation Stop: 06/14/19 21:09 Last Admin: 05/28/19 18:05 Dose: 0.5 mg Magnesium Hydroxide (Milk Of Magnesia) 30 ml PO HS PRN PRN Reason: Constipation Multivitamins/Vitamin C (Theragran) 1 tab PO DAILY [facility] Stop: 07/15/19 08:59 Last Admin: 05/28/19 09:27 Dose: Not Given Quetiapine Fumarate (Seroquel) 50 mg PO BID [facility]; Protocol Stop: 07/23/19 16:59 Last Admin: 05/28/19 18:05 Dose: 50 mg Sodium Phosphate (Fleet Enema) 135 ml RC Q2D PRN PRN Reason: Constipation Stop: 07/14/19 22:20 Zolpidem Tartrate (Ambien) 5 mg PO HS PRN PRN Reason: Insomnia Stop: 07/14/19 22:10 Last Admin: 05/28/19 20:53 Dose: 5 mg General: Alert, Oriented x3, No acute distress HEENT: Atraumatic, PERRLA, EOMI Neck: Supple Cardiovascular: Regular rate, Normal S1, Normal S2 Lungs: Clear to auscultation Abdomen: Bowel sounds, Soft Extremities: no Clubbing, no Cyanosis, no Edema Neurological: Normal gait - Procedures Procedures: Procedures Procedure Code Date COLONOSCOPY 45.23 06/28/11 ESOPHAGOGASTRODUODENOSCOPY [EGD] W/CLOSED BIOPSY 45.16 06/28/11 Assessment/Plan - Assessment Assessment: psychosis PUD/GERD HTN slightly elevated Anemia Depression Schizophrenia - Plan Plan: BP slightly elevated will add clonidine PRN Nutritional Asmnt/Malnutr-PDOC - Dietary Evaluation Malnutrition Findings (Please click <Entered> for more info): Nutritional Asmnt/Malnutrition Start: 05/21/19 12: 19 Text: Status: Complete Freq: Protocol: Document 05/21/19 12:19 VANITA (Rec: 05/21/19 12:22 VANITA [email or web address]) Nutritional Asmnt/Malnutrition Patient General Information Nutritional Screening Low Risk Diagnosis Psychosis Pertinent Medical Hx/Surgical Hx HTN, PUD/GERD, Extrapyramidal symptoms, PVD, Duodenal ulcer, Psychosis, Depression, Schizophrenia, Bipolar, Anxiety Subjective Information Pt is a 68-year-old male from [facility] admitted on 05/15 c/o increased agitation and aggressive behavior. Per Meal/ Nutrition Activity Record, Pt PO intake 92% meals x 3 days. HT: 57 WT: 139 LB (63.18 kg) BMI: 21.77 (Normal) GI: WNL, Flat, Soft BM: 05/21 x1 I/O: 1020/Not Noted Skin: WNL, Intact, Dryness Marek: 20 Diet Order: Pureed Estimated Energy Needs: ( Geriatric, CBW) 4110-4296 kcals (25-30 kcals/ kg) 63-76g Pro (1.0-1.2 g/kg) 1216-6601 ml (25-30 ml/kg) Pt PO intake 92% meals x 3 days Per Meal/Nutrition Activity Record. Dietary is currently providing an estimated 2229 kcals and 97 gm Pro, per Pt PO intake this is providing an estimated 2050 kcals and 89 gm Pro to meet 100% kcal and 100+% Pro needs- Adequate. Current Diet Order/ Nutrition Support Pureed Pertinent Medications Maalox (PRN), Dulcolax (PRN), Oscal w/Vitamin D, D50w (PRN), Glutose 40% (PRN), Colace, Glucagen (PRN), INS-SS, MOM ( PRN), Theragran, Fleet enema ( PRN) Pertinent Labs 05/21: POC Glucose (last 24 hours) 77, 145 05/18: POC Glucose (last 24 hours) 118, 119, 118 Nutritional Hx/Data Height 1.7 m Height (Calculated Centimeters) 170.2 Current Weight (lbs) 63.049 kg Weight (Calculated Kilograms) 63.0 Weight (Calculated Grams) 72092.3 [place] Body Weight 66.1 kg % [place] Body Weight 96 Body Mass Index (BMI) 21.7 Weight Status Approriate GI Symptoms GI Symptoms None Last BM 05/21 x1 Skin Integrity/Comment: WNL, Intact, Dryness Marek: 20 Current %PO Good (75-100%) Estimated Nutritional Goals BEE in Kcals: Using Current wt Calories/Kcals/Kg 25-30 Kcals Calculated 6029-1186 Protein: Using Current wt Protein g/k.0-1.2 Protein Calculated 63-76 Fluid: ml 3353-3547 ml (25-30 ml/kg) Nutritional Problem 1. Problem Problem Altered nutrition related labs Etiology r/t endocrine dysfunction Signs/Symptoms: aeb 05/21: POC Glucose (last 24 hours) 77, 145 Malnutrition Related to Morbid Obesity Malnutrition related to morbid obesity No Intervention/Recommendation Comments 1.Continue with Pureed diet as ordered. 2.Continue anti-hyperglycemia meds for glucose control per MD order. Expected Outcomes/Goals Expected Outcomes/Goals 1.PO intake to continue to meet 75% of nutritional needs. 2.Monitor PO intake, wt, nutrition related labs, and skin integrity. 3.F/U as low risk in 7 days,
[2019-05-29] MEDS: Benztropine 1 MG TAB PO SCH (08:57)
[2019-05-29] MEDS: Multivitamin Tab PO SCH (08:57)
[2019-05-29] MEDS: Calcium Carb/Vit D 500 mg/200 U Tab PO SCH (08:57)
--- NOTE | 2019-05-29 20:22 | Discharge Summary ---
DATE OF DISCHARGE: 05/29/2019 IDENTIFYING DATA: The patient is a 68-year-old male resident of a care home facility. Information was obtained by directly interviewing the patient as well as reviewing the admission papers. JUSTIFICATION OF HOSPITALIZATION: The patient is admitted for his acute agitation. CHIEF COMPLAINT: "I don't know." DIAGNOSES AT THE TIME OF ADMISSION: AXIS I: Schizophrenia, chronic paranoid type. AXIS II: None. AXIS III: As per Dr. Yañez. HISTORY OF PRESENT ILLNESS: Please refer to 05/16/2019 dictation done by me. HOSPITAL COURSE AND RESPONSE TO TREATMENT: The patient has been observed on inpatient unit, provided with supportive psychotherapy. The patient has been closely monitored. The patient has been noted to be presenting with regressive behavior, exposing himself and then playing with his genitals. The patient has been placed on Seroquel, which was gradually increased to 50 mg twice a day. The patient is also placed on valproic acid 250 mg twice a day. With these medications, the patient was observed and was noted to be doing fairly well. Finally, was discharged on 05/29/2019 with recommendation. The patient is going to be followed up on outpatient basis. MENTAL STATUS EXAMINATION: At the time of discharge, the patient's mood was noted to be less irritable. Affect is appropriate. Not suicidal or homicidal. Insight and judgment are noted to be improving. Impulse control seems to be fair. No side effects to the medications are noted. The patient has been able to verbalize the concerns rather than to act out at the time of discharge. No aggressive behavior or regressive behavior is noted at the time of discharge. DIAGNOSES AT THE TIME OF DISCHARGE: AXIS I: Schizophrenia, chronic paranoid type. AXIS II: None. AXIS III: As per Dr. Yañez. AFTERCARE PLAN: The patient is discharged [facility] and to be followed up on outpatient basis. [facility]# [id number]
--- NOTE | 2019-05-29 22:07 | Progress Notes ---
DATE: 05/29/2019 PSYCHIATRIC PROGRESS NOTE SUBJECTIVE: Staff was spoken to. The patient is interviewed. Mood is noted to be anxious. Affect is appropriate. Not suicidal or homicidal. Insight and judgment are noted to be improving. Impulse control is noted to be fair. No side effects to the medications are noted. The patient is not presenting with any threats to harm self or others today and aggressive behavior is under control. ASSESSMENT: The patient is stabilizing. PLAN: To discharge the patient today for followup on outpatient basis. [facility]# [id number]
== END 2019-05-29 11:15 | DRG 885 ==
LOC: ER 18:48 → GERO 20:20
PROVIDERS: ADMIT Psychiatry & Neurology Psychiatry; ATTEND Psychiatry & Neurology Psychiatry
DX: F20.0 Paranoid schizophrenia (principal); K21.9 Gastro-esophageal reflux disease without esophagitis; I10 Essential (primary) hypertension; D64.9 Anemia, unspecified; F41.9 Anxiety disorder, unspecified; F32.9 Major depressive disorder, single episode, unspecified; K27.9 Peptic ulcer, site unspecified, unspecified as acute or chronic, without hemorrhage or perforation; Z79.899 Other long term (current) drug therapy
CPT/HCPCS: 36415-UA; 71045-TC; 80053-TC; 80061-TC; 80307; 81001-TC; 82948-90; 83036-90; 83880-TC; 84443-TC; 84484-TC; 85025-TC; 85610-TC; 86592-TC; 93005; G0410; Z7610